=== PATIENT | male | born 1960 | race Caucasian/White ===

== ENCOUNTER → 2021-03-24 19:12 | Emergency (ER) | payer SELFPAY ==
--- NOTE | 2021-03-24 19:20 | ED.GENADULT ---
HPI - General Adult General Chief complaint: Shortness of Breath/Dyspnea Stated complaint: allergic reaction Time Seen by Provider: 03/24/21 19:12 Source: patient and RN notes reviewed Mode of arrival: ambulatory Limitations: no limitations History of Present Illness HPI narrative: 60-year-old male arrives to the [facility] with complaints of my throat is swelling, I am having an allergic reaction patient reports that it started a couple hours ago and states that he took 3 Benadryl but was not getting any better so he came to the [facility]. Patient when placed on the stretcher is tripoding, swelling noted to the soft palate, tonsils, uvula. Patient is tachycardic. Hot potato voice. Currently maintaining own secretions. Onset (ago): hour(s) Review of Systems Review of Systems: All systems reviewed & are unremarkable except as noted in HPI and below Constitutional: Constitutional: Reports no additional constitutional complaints, Denies chills and Denies fever(s) Eyes: Eyes: Reports no additional eye complaints ENT: Reports as per HPI, Reports sore throat, Reports throat swelling and Denies tongue swelling Comments: Throat swelling shut Cardiovascular: Cardiovascular: Reports no additional cardiovascular complaints and Denies chest pain Respiratory: Respiratory: Reports as per HPI, Denies chest congestion, Denies cough, Reports dyspnea and Denies wheezing Gastrointestinal: Gastrointestinal: Reports no additional gastrointestinal complaints Musculoskeletal: Musculoskeletal: Reports no additional musculoskeletal complaints Integumentary/Breasts: Skin/Breast: Reports system reviewed and no additional complaints, except as docu Psychiatric: Psychiatric: Reports no additional psychiatric complaints Allergic/Immunologic: Allergic/Immunologic: Reports no additional allergic/immunologic complaints PMFSH Past Medical History Medical History (Updated 03/24/21 @ 19:28 by Adelina Macias) Hypertension Comments Unable to obtain a complete medical history, patient having trouble talking Exam Const: General: alert, acute distress moderate and respiratory, ill appearing and uncomfortable Nutritional Appearance: well nourished Orientation/consciousness: patient oriented x3 HENMT: Ears: hearing grossly normal bilaterally and external ears normal General nose exam: Normal external nose present Mouth: Yes lip normal, Yes tongue normal, Yes muffled voice and Yes Abnormal oral and palatal mucosa present erythematous and edematous Throat: uvular edema Eyes: Pupils: Equal, round and reactive pupils present Neck: Neck: normal visual inspection Chest: Chest palpation & inspection: normal inspection of the chest Resp: Effort & Inspection: tachypneic Auscultation: crackles bilateral Other: No wheezing or stridor noted Cardio: Rate: tachycardic GI: GI Palp: Yes Soft to palpation and No Tenderness to palpation present (GI) Back/Spine/Pelvis: Back: no CVA tenderness Skin: General skin exam: normal color Neuro: General: patient oriented x3, moves all extremities, no meningeal signs and no focal motor deficits Extrem: General: normal to inspection Psych: Appearance: grossly normal and well kempt Mental Status: mental status grossly normal Affect: Anxious affect present Attitude: cooperative Course Course Emergency Course: Transfer instructions reviewed with patient, as well as provided in writing per nursing staff. The instructions also include specific and strict GO TO THE ER. EMS notified due to concern for airway. All questions have been answered, and the patient deny any further questions with discharge and discharge plan. Some parts of this dictation were generated by voice recognition software and may contain typographical and/or grammatical inaccuracies. Level of Care: [facility] Visit Vital Signs Vital signs: Vital Signs Pulse Rate 122 H 03/24/21 19:21 Respiratory Rate 26 H 03/24/21 19:21 Blood Pres
[2021-03-24 19:21] VITALS: BP 174/102; PULSE 122; RESP 26; O2SAT 100
== END | disposition short-term general hospital (02) ==
PROVIDERS: Emergency Provider Nurse Practitioner
DX: R22.0 Localized swelling, mass and lump, head (principal); I10 Essential (primary) hypertension
CPT/HCPCS: 99205; G0463; J2930

== ENCOUNTER 2021-03-24 19:36 | Inpatient (IN) | payer SELFPAY ==
[2021-03-24] VITALS (8 sets, daily range): BP systolic 106–159; BP diastolic 69–91; PULSE 77–111; RESP 16–22; O2SAT 98–100; BMI 27.0
--- NOTE | ~2021-03-24 | XR_ITS ---
EXAMINATION: XR chest 1V portable EXAM DATE: 03/26/2021 06:14 INDICATION: intubated for angio edema . TECHNIQUE: Portable AP frontal chest x-ray was obtained. Comparison is made to prior examination from 03/25/2021. FINDINGS: Endotracheal tube tip is 2.0 centimeters above the francis. There is a nasogastric tube se en with tip collimated off the study, but below the left hemidiaphragm. Couple of right basilar granulomas. Bibasilar ill-defined opacity, pneumonia or edema. Possible smal l left pleural effusion. There is no pneumothorax suspected. Cardiomediastinal silhouette is ruiz l. There are mild bony degenerative changes. IMPRESSION: 1. Nasogastric tube could be safely advanced 5 cm. 2. Bibasilar pneumonia or edema, mild progression. Reviewed, dictated and finalized at location A. CHEMIST
--- NOTE | ~2021-03-24 | CT_ITS ---
EXAMINATION: CT abdomen pelvis wo con DATE: 03/25/2021 14:11 INDICATION: Lung nodule. TECHNIQUE: Computed tomography (CT) of the abdomen and pelvis was performed without intravenous contr ast. Automated exposure control and iterative reconstruction technique were employed. The dose-length product was 1259.37 mGy-cm. COMPARISON: None. FINDINGS: The visualized portions of the lung bases demonstrate mild emphysema and mild dependent ate lectasis. Calcified right lung nodules and calcified right hilar lymph nodes are consistent with old granulomatous disease. No pleural effusion. The heart size is normal. No pericardial effusion. The na sogastric tube tip is in the stomach. There are cysts in the liver measuring up to 4.9 cm. The gallbl adder, spleen, and adrenal glands are normal. There is a 2.1 cm cyst in the pancreas. There are innum erable cysts in the kidneys measuring up to 4.6 cm on the left. There are masses in the kidneys measu ring soft tissue attenuation measuring up to 2.8 cm on the left. There are no dilated loops of bowel. The appendix is normal. There is fat stranding in small bowel mesentery in left abdomen and in right lower quadrant, likely inflammation or edema. There are no pathologically enlarged lymph nodes. Ther e is no free intraperitoneal fluid. There is severe lumbar spondylosis and mild thoracic spondylosis. There is mild chronic height loss of multiple thoracic vertebral bodies. IMPRESSION: 1. Polycystic kidney disease. 2. Masses in the kidneys measuring up to 2.8 cm on the left, most likely hemorrhagic cysts. Neoplasm cannot be excluded. Consider abdomen CT without and with contrast. 3. Fat stranding in small bowel mesentery in left abdomen and in right lower quadrant, likely inflamm ation or edema. Reviewed, dictated and finalized at location A. LE ARCHITECT IMPRESSION: 1. Polycystic kidney disease. 2. Masses in the kidneys measuring up to 2.8 cm on the left, most likely hemorr hagic cysts. Neoplasm cannot be excluded. Consider abdomen CT without and with contrast. 3. Fat stranding in small bowel mesentery in left abdomen and in right lower qu adrant, likely inflammation or edema.
--- NOTE | ~2021-03-24 | XR_ITS ---
XR abdomen NG/feed tube insert DATE: 03/24/2021 20:31 INDICATION: NG tube placement TECHNIQUE: Portable AP chest examination on 03/24/20215 hours COMPARISON: None FINDINGS: Nasogastric tube is present in the gastric fundus, the proximal side-port just distal to th e diaphragmatic hiatus. Nonspecific gaseous distention of colon and small bowel. IMPRESSION: NG tube in gastric fundus Reviewed, dictated and finalized at Location A. Reviewed, dictated and finalized at location A. RTISING SALES AGENT IMPRESSION: NG tube in gastric fundus
--- NOTE | ~2021-03-24 | XR_ITS ---
EXAMINATION: XR chest 1V portable DATE: 03/28/2021 06:05 INDICATION: Respiratory failure. Angioedema. TECHNIQUE: A single frontal view of the chest was obtained. COMPARISON: Chest single view 03/27/2021, CT abdomen and pelvis 03/25/2021 FINDINGS: There is mild atelectasis in left lower lung zone. Calcified right lung nodules and calcifi ed right hilar lymph nodes are consistent with old granulomatous disease. No pleural effusion or pneu mothorax. The heart size is normal. There are old healed left rib fractures. The nasogastric tube tip is beyond the inferior margin of the radiograph, but at least to the stomach. IMPRESSION: 1. Mild atelectasis in left lower lung zone. Reviewed, dictated and finalized at location A. MOTIVE SERVICE CASHIER
--- NOTE | ~2021-03-24 | XR_ITS ---
EXAMINATION: XR chest 1V portable DATE: 03/29/2021 06:14 INDICATION: Respiratory failure. Angioedema. TECHNIQUE: A single frontal view of the chest was obtained. COMPARISON: Chest single view 03/28/2021, CT abdomen and pelvis 03/25/2021 FINDINGS: Calcified right lung nodules and calcified right hilar lymph nodes are consistent with old granulomatous disease. No pleural effusion or pneumothorax. The heart size is normal. IMPRESSION: 1. No acute cardiopulmonary disease. Reviewed, dictated and finalized at location A. TH INFORMATION SYSTEMS TECHNICIAN
--- NOTE | ~2021-03-24 | CT_ITS ---
EXAMINATION:CT diagnostic chest wo con DATE: 03/25/2021 14:12 INDICATION: Lung nodule. Abnormal chest radiograph. TECHNIQUE: Computed tomography (CT) of the chest was performed without intravenous contrast. Automate d exposure control and iterative reconstruction technique were employed. The dose-length product (DLP ) was 583.59 mGy-cm. COMPARISON: Chest single view 03/25/2021 FINDINGS: There is mild emphysema. There is mild dependent atelectasis bilaterally. Calcified right l aydin nodules and calcified right hilar and mediastinal lymph nodes are consistent with old granulomato us disease. The endotracheal tube tip is in expected position above the francis. The heart size is nor mal. There are coronary artery calcifications. No pericardial effusion. The nasogastric tube tip is i n the stomach. There are cysts in the liver and kidneys, consistent with polycystic kidney disease. T here is moderate cervical spondylosis and mild thoracic spondylosis. IMPRESSION: 1. No evidence of malignancy. 2. Mild emphysema. 3. Polycystic kidney disease. Reviewed, dictated and finalized at location A. S UTILITY REPRESENTATIVE
--- NOTE | ~2021-03-24 | XR_ITS ---
EXAMINATION: XR chest 1V portable EXAM DATE: 03/25/2021 07:24 INDICATION: intubated for angio edema TECHNIQUE: Portable AP frontal chest x-ray was obtained. Comparison is made to prior examination from 03/24/2021. FINDINGS: Endotracheal tube tip is 2.5 centimeters above the francis. Feeding tube tip is in the stom ach, side-port is at the gastroesophageal junction; this could be safely advanced 5 cm. Couple of right basilar granulomas. Left basilar linear atelectasis or possibly pneumonia. Possible small left pleural effusion. There is no pneumothorax suspected. Cardiomediastinal silhouette is n ormal. There are mild bony degenerative changes. Better inspiration on this exam than prior study. Previously seen right upper lobe nodular density no t specifically appreciated on this x-ray. IMPRESSION: 1. Nasogastric tube could be safely advanced 5 cm. 2. Left basilar subsegmental atelectasis or possibly pneumonia. Reviewed, dictated and finalized at location A. UCT TESTER
--- NOTE | ~2021-03-24 | XR_ITS ---
XR chest ET placement DATE: 03/24/2021 20:31 INDICATION: Post-intubation TECHNIQUE: Portable AP chest on 03/24/20213 hours COMPARISON: None FINDINGS: ET tube is 1 cm above francis; ideal range is minimal 2-5 cm. An NG tube is noted in the gastric fundus, the proximal side-port just beyond the diaphragmatic hiatu s. No central lines. Heart size is likely within normal range considering magnification associated with AP projection. The re is mild bibasilar infiltrate or atelectasis, left greater than right. There is suggestion of an approximately 2.5 cm soft tissue mass density of the medial right upper lob e suspicious for lung cancer. No prior radiographs are available for comparison. CT thorax examinatio n is recommended. IMPRESSION: Right upper lobe approximately 2.5 cm lung mass is suggested. CT thorax is recommended Bibasilar infiltrate and/atelectasis, left greater than right ET tube 1 cm above francis; ideal range is 2-5 cm NG tube in gastric fundus Reviewed, dictated and finalized at Location [facility]. Reviewed, dictated and finalized at location A. UELS PRODUCT MANAGER IMPRESSION: Right upper lobe approximately 2.5 cm lung mass is suggested. CT th orax is recommended Bibasilar infiltrate and/atelectasis, left greater than right ET tube 1 cm above francis; ideal range is 2-5 cm NG tube in gastric fundus
--- NOTE | ~2021-03-24 | XR_ITS ---
EXAMINATION: XR chest 1V portable EXAM DATE: 03/27/2021 05:52 INDICATION: Respiratory failure, angioedema TECHNIQUE: Portable AP frontal chest x-ray was obtained. Compared to study from 03/26/2021. FINDINGS: Endotracheal tube tip is 2 centimeters above the francis. There is a nasogastric tube seen with tip collimated off the study, but below the left hemidiaphragm. Couple of right basilar granulomas. Bibasilar ill-defined opacity, pneumonia or edema. Possible smal l left pleural effusion. There is no pneumothorax suspected. Cardiomediastinal silhouette is ruiz l. There are mild bony degenerative changes. IMPRESSION: 1. Tubes in position. 2. Bibasilar pneumonia or edema, mild progression. Reviewed, dictated and finalized at location A. L CLERK
[2021-03-24] MEDS: PROPOFOL IV EMULSION 100 ML 2.88 MG IV CONT (20:15)
--- NOTE | 2021-03-24 20:55 | PC.NURSE ---
0.5 mg epi given [address] marks attempting intubation 1942 4 versed and 100 succ given at 1943 another 4 versed given at 1949 another 100 succ given 1953 7.5 tube 25 at the teeth 1956 20 mg propofol bolus given [address] marks NG tube placed 55 at the lips 2019
[2021-03-24] MEDS: SODIUM CHLORIDE 0.9% IV 1,000 ML 125 ML IV CONT (21:04)
--- NOTE | 2021-03-24 21:11 | ED.GENADULT ---
HPI - General Adult General Chief complaint: Allergic Reaction Stated complaint: ? poss allergic rxn Time Seen by Provider: 03/24/21 20:04 Source: patient, EMS and RN notes reviewed Mode of arrival: EMS Limitations: no limitations History of Present Illness HPI narrative: 60 years old white male brought to the emergency room by ambulance from urgent care because of difficulty swallowing and talking started 2 hours prior to arrival to the emergency room. Patient on lisinopril for hypertension. Patient denies having similar symptoms. Also denies any fever, chills, nausea, vomiting, diarrhea, constipation, or chest pain Review of Systems Review of Systems: CONSTITUTIONAL: Denies fever, chills, or sweats. EYES: Denies visual changes, redness, or discharge. ENT: Denies rhinorrhea, congestion, sore throat, or otalgia. CARDIOVASCULAR: Denies chest pain, palpitations, or edema. RESPIRATORY: Unable to swallow or breathe GASTROINTESTINAL: Denies abdominal pain, nausea, vomiting, or diarrhea. GENITOURINARY: Denies dysuria or hematuria. SKIN: Denies rash or itching. MUSCULOSKELETAL: Denies back pain, joint pain, or myalgia. NEUROLOGIC: Denies headache, numbness, or weakness. PSYCHIATRIC: Denies anxiety or depression. [facility] Past Medical History Medical History (Updated 03/24/21 @ 21:36 by Gwyn Ennis MD) Hypertension Exam Narrative: General appearance: Well-developed, well-nourished Skin: Normal color Head: Normocephalic, nontraumatic Eyes: Clear conjunctiva ENT: Extensive edematous changes of the oropharyngeal area, including the soft palate and the uvula which sitting at the back of the tongue Neck: Supple, nontender Chest and respiratory: Airway patent, no respiratory distress, no accessory muscle use Heart: Regular rate/rhythm Abdomen: Soft, nontender, no organomegaly, quiet bowel sounds Vascular: Normal peripheral pulses, normal capillary refill. Musculoskeletal: Normal range of motion, nontender back Neurologic: Alert and oriented ?3, HHA is normal as tested, no gross motor deficit Course Course Emergency Course: Stable, improving Consultations Consultation #1: DR ALVAREZ Date: 03/24/21 Time: 21:26 Vital Signs Vital signs: Vital Signs Pulse Rate 110 H 03/24/21 19:35 Respiratory Rate 22 H 03/24/21 19:35 Blood Pressure 137/84 03/24/21 19:35 Pulse Oximetry 99 03/24/21 19:35 Pulse Rate 104 H 03/24/21 20:42 Respiratory Rate 22 H 03/24/21 20:42 Blood Pressure 106/69 03/24/21 20:42 Pulse Oximetry 98 03/24/21 20:42 Procedures Intubation Intubation #1: Intubation Date: 03/24/21 Intubation Time: 21:27 Time out performed: Yes sedative: Versed Mg Given: 4 paralytic: Succinylcholine Mg Given: 100 Laryngoscope: fiber optic video scope Tube Size (cm): 7.5 Method of Intubation: orotracheal Number of Attempts: 3 Additional Comments: Unsuccessful intubation, because of the extensive oropharyngeal edema. Anesthesiologist came to the emergency room ,AND was able to manage to intubate the patient. Medical Decision Making MDM Narrative Medical decision making narrative: Angioedema orotracheal intubation CRICKET inhibitor Differential Diagnosis Differential Diagnosis: Angioedema, CRICKET inhibitor Vital Signs Vital Signs: Vital Signs Pulse Rate 110 H 03/24/21 19:35 Respiratory Rate 22 H 03/24/21 19:35 Blood Pressure 137/84 03/24/21 19:35 Pulse Oximetry 99 03/24/21 19:35 Pulse Rate 104 H 03/24/21 20:42 Respiratory Rate 22 H 03/24/21 20:42 Blood Pressure 106/69 03/24/21 20:42 Pulse Oximetry 98 03/24/21 20:42 Lab Data Result
[2021-03-24 21:22] LABS: Basophils Absolute Auto 0.1 K/mm3 (0.0-0.1); Basophils Percent Auto 0.6 % (0.2-1.2); Eosinophils Absolute Auto 0.1 K/mm3 (0-0.3); Eosinophils Percent Auto 1.1 % (0-4.4); Hematocrit 42.4 % (42.0-52.0); Hemoglobin 13.6 g/dL (14.0-18.0); Immature Granulocyte Absolute 0.03 K/mm3 (0.00-0.031); Immature Granulocyte Percent A 0.4 % (0-0.5); Lymphocytes Absolute Auto 0.49 K/mm3 (0.9-3.2); Lymphocytes Percent Auto 6.1 % (18.3-44.2); Mean Corpuscular HGB Conc 32.1 g/dl (32-36); Mean Corpuscular Hemoglobin 34.1 pg (26-34); Mean Corpuscular Volume 106.3 fl (80-100); Mean Platelet Volume 9.6 fl (7.4-10.4); Monocytes Absolute Auto 0.2 K/mm3 (0.1-0.6); Neutrophils Absolute Auto 7.1 K/mm3 (1.3-6.7); Neutrophils Percent Auto 88.8 % (45.5-73.1); Platelet Count Result 149 k/mm3 (150-375); Red Blood Count 3.99 M/mm3 (4.6-6.20); Red Cell Distribution Width 13.9 % (11.5-14.5)
[2021-03-24 21:38] LABS: INR 1.1; Partial Thromboplastin Time 26.9 SECONDS (22.3-36.8); Prothrombin Time 13.7 Seconds (11.1-14.7)
[2021-03-24 21:39] LABS: Alanine Aminotransferase 46 U/L (4-50); Albumin Level 4.3 g/dL (3.5-5.1); Alkaline Phosphatase 100 U/L (38-126); Anion Gap 13 mmol/L (8-16); Aspartate Amino Transferase 78 U/L (17-59); Bilirubin,Total 0.8 mg/dL (0.2-1.3); Blood Urea Nitrogen 28 mg/dL (9-20); Calcium 8.2 mg/dL (8.4-10.2); Carbon Dioxide 20 mmol/L (22-30); Chloride 106 mmol/L (98-107); Estimated CRCL calculation 45 ml/min; Estimated Glomerular Filt Rate 41; Glucose 224 mg/dL (65-110); Potassium 4.6 mmol/L (3.4-5.0); Sodium 139 mmol/L (137-145)
[2021-03-24] MEDS: PROPOFOL IV EMULSION 100 ML 28.8 MG IV CONT (23:40)
--- NOTE | 2021-03-24 23:48 | ADMGEN ---
This patient, Anton Navarro, was admitted to Intensive Care Unit-6. Patient/family oriented to hospital policies and general routines including ID bracelet, bed and alarms, visiting hours, pain management, procedures, bathroom and other care routines, personal items, smoking policy, room service/diet, and visiting hours. Information on how to activate the Rapid Response Team has been discussed. Patient/Family are encouraged to report perceived risks to care and to ask questions if they do not understand what they are told or what they should do.
[2021-03-25] VITALS (26 sets, daily range): BP systolic 124–149; BP diastolic 79–95; PULSE 69–88; RESP 14–28; TEMP 35.6–37; O2SAT 94–100; BMI 27.0
--- NOTE | 2021-03-25 00:15 | PM.IMHP ---
H&P: HPI History of Present Illness Date/Time: 03/25/21 00:15 Chief Complaint: Shortness of breath Narrative: 60 years old white male who [facility] with throat swelling which started couple of hours ago and he took 3 Benadryl at home which did not improve and went to the [facility]. Patient was tripoding on this stretcher and swelling noted in the soft palate tonsils and he will noted to be tachycardic with hot potato voice. Received a dose of Solu-Medrol and also epinephrine. He was immediately referred to the ER. While in the ER he had difficulty swallowing and talking and he was emergently intubated. He had been given Solu Medrol in the ER and is admitted to the ICU for further care. No further history could be elucidated at this point due to his mental status. He is currently sedated on propofol. Review of Systems Review of Systems: ROS unobtainable: Yes unobtainable due to endotracheal tube, unobtainable due to medical condition and unobtainable due to mental status PMFSH Past Medical History Medical History (Updated 03/25/21 @ 00:23 by Carlos Haddad MD) Hypertension Social History Social History Smoking status: Former smoker Alcohol intake: current Substance use: never Gender identity (if verbalized by the patient): Male Sexual Orientation (if Verbalized by the Patient): Straight or Heterosexual Spiritual care concerns: No Meds Home Medications and Allergies Home Medications Medication Instructions Recorded Confirmed Type lisinopril 10 mg PO DAILY 03/24/21 03/24/21 History Allergies Allergy/AdvReac Type Severity Reaction Status Date / Time lisinopril Allergy Swelling Verified 03/25/21 00:26 of Lip/Tongue/Throat Vital Signs Vital Signs - 24 hr 03/24/21 19:35 03/24/21 20:15 03/24/21 20:24 Pulse Rate 110 H 105 H 111 H Respiratory Rate 22 H 16 Blood Pressure 137/84 Pulse Oximetry 99 99 03/24/21 20:40 03/24/21 20:42 03/24/21 22:41 Pulse Rate 104 H 92 Respiratory Rate 22 H 17 Blood Pressure 106/69 159/91 H Pulse Oximetry 98 98 100 03/24/21 23:28 03/24/21 23:40 Pulse Rate 79 77 Respiratory Rate Blood Pressure Pulse Oximetry 100 Exam Narrative: General appearance: Well-developed, well-nourished Skin: Normal color no rash Head: Normocephalic, nontraumatic Eyes: Clear conjunctiva Throat: ET tube in place Neck: Supple, nontender Chest and respiratory: Bilateral equal air entry, no respiratory distress, no accessory muscle use on mechanical ventilation Heart: Regular rate/rhythm no murmur rubs or gallops Abdomen: Soft, nontender, no organomegaly, quiet bowel sounds Vascular: Normal peripheral pulses, normal capillary refill. Musculoskeletal: Normal range of motion, nontender back Neurologic: Sedated on vent H&P: Results Labs Labs: Short CBC 03/24/21 Range/Units 20:53 WBC 8.0 (4.5-10.0) K/mm3 Hgb 13.6 L (14.0-18.0) g/dL Hct 42.4 (42.0-52.0) % Plt Count 149 L (150-375) k/mm3 BMP 03/24/21 20:53 Sodium 139 Potassium 4.6 Chloride 106 Carbon Dioxide 20 L BUN 28 H Creatinine 1.70 H Glucose 224 H Calcium 8.2 L Liver Function 03/24/21 Range/Units 20:53 Total Bilirubin 0.8 (0.2-1.3) mg/dL AST 78 H (17-59) U/L ALT 46 (4-50) U/L Alkaline Phosphatase 100 (38-126) U/L Albumin 4.3 (3.5-5.1) g/dL Assessment and Plan Assessment and plan (1) Angioedema: Qualifiers: Encounter type: initial encounter Qualified Code(s): T78.3XXA - Angioneurotic edema, initial encounter Code(s): T78.3XXA - Angio
[2021-03-25 00:48] LABS: Alveolar/Arterial O2 Gradient 195.5 mmHg; Base Excess ABG -6.9 mEq/l (+/-2.0); Carboxyhemoglobin 0.2 % THb (0-2.0); Fractional Inspired Oxygen 70 %; HCO3 ABG 17.4 mEq/l (22.0-26.0); Methemoglobin ABG 0.4 %THb (0-1.5); Oxygen Content ABG 22.1 %vol (16.0-22.0); Oxygen Saturation ABG 99.6 % (95.0-100.0); Oxyhemoglobin 98.5 % THb (90.0-100.0); PCO2 ABG 32.1 mmHg (35.0-45.0); PO2 ABG 269.1 mmHg (80.0-100.0); PO2 FiO2 Ratio Arterial Blood 3.84 %; Reduced Hemoglobin 0.9 %THb (0-5.0); Total Hemoglobin 15.5 g/dL (12.0-18.0); pH ABG 7.352 (7.350-7.450)
[2021-03-25 00:49] LABS: Device VENTILATOR; Modified Allen's Test Pass; Site Drawn LEFT RADIAL
[2021-03-25 00:50] LABS: Arterial Blood Gas PEEP 5 cmH2O; Arterial Blood Gas Tidal Volume 420 ml; Arterial Blood Gas Vent Mode CMV; Arterial Blood Gas Ventilator rate 15 /MIN
[2021-03-25] MEDS: hydrALAZINE HCL 20 MG/ML VIAL IV PUSH ×2 (01:30→01:39)
[2021-03-25] MEDS: diphenhydrAMINE HCl INJ 50 MG/ML VIAL IV PUSH ×4 (01:38→17:19)
[2021-03-25] MEDS: methylPREDNISolone SOD SUCC 125 MG VIAL 60 MG IV PUSH ×4 (01:38→17:22)
[2021-03-25 01:43] LABS: Alanine Aminotransferase 52 U/L (4-50); Albumin Level 4.6 g/dL (3.5-5.1); Alkaline Phosphatase 97 U/L (38-126); Anion Gap 12 mmol/L (8-16); Aspartate Amino Transferase 80 U/L (17-59); Blood Urea Nitrogen 30 mg/dL (9-20); CRP < 0.5 mg/dL (<1.0); Calcium 8.5 mg/dL (8.4-10.2); Carbon Dioxide 21 mmol/L (22-30); Chloride 106 mmol/L (98-107); Estimated CRCL calculation 50 ml/min; Estimated Glomerular Filt Rate 44; Glucose 149 mg/dL (65-110); Potassium 5.6 mmol/L (3.4-5.0); Sodium 139 mmol/L (137-145)
[2021-03-25 02:10] LABS: Basophils Percent Auto 0.2 % (0.2-1.2); Eosinophils Percent Auto 0.2 % (0-4.4); Hematocrit 44.7 % (42.0-52.0); Hemoglobin 14.6 g/dL (14.0-18.0); Immature Granulocyte Absolute 0.02 K/mm3 (0.00-0.031); Immature Granulocyte Percent A 0.4 % (0-0.5); Lymphocytes Absolute Auto 0.39 K/mm3 (0.9-3.2); Lymphocytes Percent Auto 7.3 % (18.3-44.2); Mean Corpuscular HGB Conc 32.7 g/dl (32-36); Mean Corpuscular Hemoglobin 34.6 pg (26-34); Mean Corpuscular Volume 105.9 fl (80-100); Mean Platelet Volume 9.6 fl (7.4-10.4); Monocytes Absolute Auto 0.1 K/mm3 (0.1-0.6); Monocytes Percent Auto 2.4 % (2.6-8.5); Neutrophils Absolute Auto 4.8 K/mm3 (1.3-6.7); Neutrophils Percent Auto 89.5 % (45.5-73.1); Platelet Count Result 111 k/mm3 (150-375); Red Blood Count 4.22 M/mm3 (4.6-6.20); White Blood Count 5.4 K/mm3 (4.5-10.0)
[2021-03-25] MEDS: PROPOFOL IV EMULSION 100 ML 23.04 MG IV CONT ×5 (02:10→21:13)
[2021-03-25] MEDS: MIDAZOLAM 100MG/NS 100ML(*CRX) 100 MG/100 ML BAG 6 MG IV CONT ×2 (02:25→15:13)
[2021-03-25 02:59] LABS: Erythrocyte Sedimentation Rate 21 mm/hr (0-20)
[2021-03-25] MEDS: SODIUM CHLORIDE 0.9% IV 1,000 ML 125 ML IV CONT (06:19)
[2021-03-25] MEDS: LACTATED RINGERS 1,000 ML 999 ML IV CONT (08:44)
[2021-03-25] MEDS: FAMOTIDINE 20 MG/2 ML VIAL IV PUSH ×2 (08:49→21:16)
[2021-03-25] MEDS: MINERAL OIL/WHITE PETROLATUM OINTMENT 1 APPLIC EACH EYE ×2 (08:49→21:16)
--- NOTE | 2021-03-25 09:34 | WPDCNINT ---
Assessment and Plan Assessment and plan (1) Acute respiratory failure: Code(s): J96.00 - Acute respiratory failure, unspecified whether with hypoxia or hypercapnia Status: Acute Assessment and Plan: Acute respiratory failure likely related to angioedema and swelling of the tongue, soft palate, tonsils. Patient also had hoarseness in voice and difficulty swallowing -continue CMV mode of ventilation, peep of 5, 25% FiO2 -chest x-ray and ABGs reviewed -continue sedation with Versed and propofol, maintain RASS of 0 to -2 -patient was a difficult intubation per ER report (2) Angioedema: Qualifiers: Encounter type: initial encounter Qualified Code(s): T78.3XXA - Angioneurotic edema, initial encounter Code(s): T78.3XXA - Angioneurotic edema, initial encounter Status: Acute Assessment and Plan: Angioedema likely related to lisinopril has been added to the allergies -continue Solu-Medrol -continue famotidine and Benadryl -will obtain CT scan of neck and soft tissues in a.m. (3) DVT prophylaxis: Code(s): Z29.9 - Encounter for prophylactic measures, unspecified Status: Acute Assessment and Plan: Lovenox SQ Additional Plan Nutrition: Will start tube feeds today Stress ulcer prophylaxis: Famotidine Code status: Full code Critical care time spent: 42 minutes This dictation may have been done utilizing a voice recognition system. Attempts have been made to correct errors. However, there may be uncorrected grammatical, spelling, and recognition errors present. Due to a high probability of clinically significant, life threatening deterioration, the patient required my highest level of preparedness to intervene emergently and I personally spent this critical care time directly and personally managing the patient. This critical care time included obtaining a history; examining the patient; pulse oximetry; ordering and review of studies; arranging urgent treatment with development of a management plan; evaluation of patient's response to treatment; frequent reassessment; and discussions with other providers. It was exclusive of separately billable procedures and treating other patients and teaching time. Please see Assessment and Plan section and the rest of the note for further information on patient assessment and treatment [employer] Consult Note Consult date: 03/25/21 Time Seen: 07:01 Reason for consult: Acute respiratory failure, injury edema HPI: Anton Navarro is a 60 year old male with past medical of hypertension on lisinopril presented the ED from Urgent Care on 03/24/2021 with complains of difficulty swallowing, swelling throat, soft palate and tonsils along with hoarseness of voice. Patient received Solu-Medrol, epinephrine. He was intubated in the ER for airway protection by Anesthesia. Patient was placed on mechanical ventilation and transferred to the ICU for further management. In the ICU was started on Benadryl and Pepcid. Remains on methylprednisolone. Patient is currently on CMV mode of ventilation, 25% FiO2. Patient is hemodynamically stable, adequate urine output. Patient is sedated with propofol and Versed, does not open his eyes or follow simple commands Review of Systems Review of Systems: ROS unobtainable: Yes unobtainable due to endotracheal tube and unobtainable due to medical condition PMFSH Past Medical History Medical History (Updated 03/25/21 @ 09:40 by Jonathon Miller MD) Hypertension Social History Social History Smoking status: Former smoker Alcohol intake: current Substance use: never Gender identity (if verbalized by the patient): Male Sexual Orientation (if Verbalized by the Patient): Straight or Heterosexual Spiritual care concerns: No Meds Home Medications and Allergies Home Medications Medication Instructions Recorded Confirmed Type lisinopril 10 mg PO DA
[2021-03-25] MEDS: ENOXAPARIN 40 MG/0.4 ML SYRINGE SUB-Q (10:37)
[2021-03-25 12:09] LABS: Glucose Point of Care 143 mg/dl (65-105)
[2021-03-25 18:08] LABS: Glucose Point of Care 137 mg/dl (65-105)
[2021-03-25] MEDS: SODIUM CHLORIDE 0.9% IV 1,000 ML 75 ML IV CONT (21:15)
[2021-03-25 23:48] LABS: Glucose Point of Care 162 mg/dl (65-105)
[2021-03-26] VITALS (25 sets, daily range): BP systolic 105–170; BP diastolic 33–101; PULSE 67–95; RESP 15–38; TEMP 36.6–37.3; O2SAT 90–97
[2021-03-26] MEDS: methylPREDNISolone SOD SUCC 125 MG VIAL 60 MG IV PUSH ×5 (00:05→23:55)
[2021-03-26] MEDS: diphenhydrAMINE HCl INJ 50 MG/ML VIAL IV PUSH ×5 (00:05→23:54)
[2021-03-26] MEDS: PROPOFOL IV EMULSION 100 ML 23.04 MG IV CONT ×3 (01:17→10:08)
[2021-03-26 04:35] LABS: Alveolar/Arterial O2 Gradient 79.2 mmHg; Base Excess ABG -2.7 mEq/l (+/-2.0); Carboxyhemoglobin 0.3 % THb (0-2.0); Fractional Inspired Oxygen 28 %; Methemoglobin ABG 0.3 %THb (0-1.5); Oxygen Content ABG 18.2 %vol (16.0-22.0); Oxygen Saturation ABG 94.9 % (95.0-100.0); Oxyhemoglobin 93.8 % THb (90.0-100.0); PCO2 ABG 38.2 mmHg (35.0-45.0); PO2 ABG 75.4 mmHg (80.0-100.0); PO2 FiO2 Ratio Arterial Blood 2.69 %; Reduced Hemoglobin 5.6 %THb (0-5.0); Total Hemoglobin 13.8 g/dL (12.0-18.0); pH ABG 7.379 (7.350-7.450)
[2021-03-26 04:37] LABS: Arterial Blood Gas PEEP 5 cmH2O; Arterial Blood Gas Tidal Volume 420 ml; Arterial Blood Gas Vent Mode CMV; Arterial Blood Gas Ventilator rate 15 /MIN; Device VENTILATOR; Modified Allen's Test Pass; Site Drawn LEFT RADIAL
[2021-03-26 05:01] LABS: Hematocrit 39.1 % (42.0-52.0); Immature Granulocyte Absolute 0.02 K/mm3 (0.00-0.031); Immature Granulocyte Percent A 0.3 % (0-0.5); Lymphocytes Absolute Auto 0.27 K/mm3 (0.9-3.2); Lymphocytes Percent Auto 4.5 % (18.3-44.2); Mean Corpuscular HGB Conc 33.2 g/dl (32-36); Mean Corpuscular Hemoglobin 34.9 pg (26-34); Mean Corpuscular Volume 104.8 fl (80-100); Mean Platelet Volume 9.8 fl (7.4-10.4); Monocytes Absolute Auto 0.2 K/mm3 (0.1-0.6); Monocytes Percent Auto 3.8 % (2.6-8.5); Neutrophils Absolute Auto 5.5 K/mm3 (1.3-6.7); Neutrophils Percent Auto 91.4 % (45.5-73.1); Platelet Count Result 120 k/mm3 (150-375); Red Blood Count 3.73 M/mm3 (4.6-6.20); Red Cell Distribution Width 13.6 % (11.5-14.5)
[2021-03-26 05:12] LABS: Alanine Aminotransferase 32 U/L (4-50); Albumin Level 3.4 g/dL (3.5-5.1); Alkaline Phosphatase 72 U/L (38-126); Anion Gap 9 mmol/L (8-16); Aspartate Amino Transferase 38 U/L (17-59); Bilirubin,Total 0.3 mg/dL (0.2-1.3); Blood Urea Nitrogen 32 mg/dL (9-20); Calcium 7.9 mg/dL (8.4-10.2); Carbon Dioxide 21 mmol/L (22-30); Chloride 108 mmol/L (98-107); Estimated CRCL calculation 56 ml/min; Estimated Glomerular Filt Rate 52; Glucose 192 mg/dL (65-110); Phosphorus 4.2 mg/dL (2.5-4.5); Potassium 4.4 mmol/L (3.4-5.0); Sodium 138 mmol/L (137-145)
[2021-03-26] MEDS: MIDAZOLAM 100MG/NS 100ML(*CRX) 100 MG/100 ML BAG 6 MG IV CONT (07:52)
[2021-03-26] MEDS: MINERAL OIL/WHITE PETROLATUM OINTMENT 1 APPLIC EACH EYE ×2 (07:53→20:25)
[2021-03-26] MEDS: ENOXAPARIN 40 MG/0.4 ML SYRINGE SUB-Q (07:53)
[2021-03-26] MEDS: FAMOTIDINE 20 MG/2 ML VIAL IV PUSH ×2 (07:53→20:21)
--- NOTE | 2021-03-26 11:21 | PCFNICU ---
ICU Rounding Note: Pt current nutrition is Vital AF 1.2 at 50 ml/hr over 22 hours. Last recorded weight is 98.7 kg, up from 93 kg on admit. Bowel Motility: No BM reported. Labs Reviewed:GFR 52, BUN 32, Cr 1.4,Glu 192,Alb 3.4 Meds Noted:Versed, Benadryl, Propofol 40 nytc=838 kcals, Pepcid,Lovenox, Solu-Medrol. Skin: WNL Additional Notes: Patient remains on mechanical vent and tube feedings of Vital AF 1.2 at 50 ml/hr over 22hours. Propofol providing an additional 608 kcals. Free water flush 30 ml q 4 hours. Agree with diet orders. Following daily in ICU rounds. Will monitor every Tuesday and Tuesday.
[2021-03-26 12:00] LABS: Glucose Point of Care 178 mg/dl (65-105)
[2021-03-26] MEDS: FENTANYL 2,500MCG/NS250ML(*CRX 2,500 MCG/250 ML BAG IV CONT (12:32)
--- NOTE | 2021-03-26 12:34 | WPDINTPN ---
Progress Note: A&P Assessment and Plan (1) Acute respiratory failure: Code(s): J96.00 - Acute respiratory failure, unspecified whether with hypoxia or hypercapnia Status: Acute Assessment and Plan: Acute respiratory failure likely related to angioedema and swelling of the tongue, soft palate, tonsils. Patient also had hoarseness in voice and difficulty swallowing -continue CMV mode of ventilation, peep of 5, 25% FiO2 -chest x-ray and ABGs reviewed -continue sedation with Versed and propofol, maintain RASS of 0 to -2 -patient was a difficult intubation per ER report -patient has a good cuff leak -will obtain CT of the neck and soft tissues in a.m. to evaluate for pharyngeal and hypo pharyngeal swelling (2) Angioedema: Qualifiers: Encounter type: initial encounter Qualified Code(s): T78.3XXA - Angioneurotic edema, initial encounter Code(s): T78.3XXA - Angioneurotic edema, initial encounter Status: Acute Assessment and Plan: Angioedema likely related to lisinopril has been added to the allergies -continue Solu-Medrol -continue famotidine and Benadryl (3) DVT prophylaxis: Code(s): Z29.9 - Encounter for prophylactic measures, unspecified Status: Acute Assessment and Plan: Lovenox SQ Additional Plan Nutrition: Tolerating tube feeds Stress ulcer prophylaxis: Famotidine Code status: Full code Critical care time spent: 42 minutes This dictation may have been done utilizing a voice recognition system. Attempts have been made to correct errors. However, there may be uncorrected grammatical, spelling, and recognition errors present. Due to a high probability of clinically significant, life threatening deterioration, the patient required my highest level of preparedness to intervene emergently and I personally spent this critical care time directly and personally managing the patient. This critical care time included obtaining a history; examining the patient; pulse oximetry; ordering and review of studies; arranging urgent treatment with development of a management plan; evaluation of patient's response to treatment; frequent reassessment; and discussions with other providers. It was exclusive of separately billable procedures and treating other patients and teaching time. Please see Assessment and Plan section and the rest of the note for further information on patient assessment and treatment Subjective Date/time seen: 03/26/21 12:34 Interval history: Reason for consult: Acute respiratory failure, angioedema likely related to lisinopril use 03/26/2021: Patient seen and examined the ICU, remains intubated on mechanical ventilation, on 28% FiO2 and 5 of PEEP. Patient does have a good cuff leak. Lower lip and tongue remains swollen. Adequate urine output, Creatinine improving. Hemodynamically stable. Patient is sedated with propofol, fentanyl, Versed infusion. Patient is tolerating tube feeds Review of Systems Review of Systems: ROS unobtainable: Yes unobtainable due to endotracheal tube and unobtainable due to medical condition Exam Narrative: General: Intubated, sedated, no acute distress HEENT: ETT in place, tongue looks to be swollen, lips slightly swollen pupils are equal and reactive, sclerae is clear Neck: Supple no lymphadenopathy Respiratory: Clear to auscultation bilaterally, patient does have a good cuff leak Cardiac: S1-S2 normal, regular rate and rhythm Abdomen: Soft, nontender, nondistended, normoactive bowel sounds Extremities: Chronic venous stasis changes on bilateral lower extremities Neuro: Patient is intubated, sedated does not open his eyes or follow simple commands Skin: Dry and intact Psych: Unable to assess at this time Objective Data Vital Signs Vital Signs: Vital Signs - 24 hr 03/25/21 14:00 03/25/21 14:26 03/25/21 14:33 Temperature 96.9 F L Pulse Rate 77 73 72 Respiratory Rate Blood Pressure 148/95 H Pulse O
[2021-03-26] MEDS: PROPOFOL IV EMULSION 100 ML 25.92 MG IV CONT (13:37)
[2021-03-26] MEDS: PROPOFOL IV EMULSION 100 ML 20.16 MG IV CONT (17:14)
[2021-03-26 17:26] LABS: Glucose Point of Care 171 mg/dl (65-105)
[2021-03-26] MEDS: PROPOFOL IV EMULSION 100 ML 14.4 MG IV CONT (22:34)
[2021-03-26] MEDS: MIDAZOLAM 100MG/NS 100ML(*CRX) 100 MG/100 ML BAG IV CONT (23:52)
[2021-03-27] VITALS (50 sets, daily range): BP systolic 114–177; BP diastolic 74–106; PULSE 63–108; RESP 12–22; TEMP 36.6–37.2; O2SAT 90–98
[2021-03-27 00:03] LABS: Glucose Point of Care 197 mg/dl (65-105)
[2021-03-27 04:39] LABS: Alveolar/Arterial O2 Gradient 137.2 mmHg; Carboxyhemoglobin 0.3 % THb (0-2.0); Fractional Inspired Oxygen 40 %; HCO3 ABG 24.2 mEq/l (22.0-26.0); Methemoglobin ABG 0.3 %THb (0-1.5); Oxygen Content ABG 21.4 %vol (16.0-22.0); Oxygen Saturation ABG 94.4 % (95.0-100.0); Oxyhemoglobin 94.3 % THb (90.0-100.0); PCO2 ABG 56.3 mmHg (35.0-45.0); PO2 ABG 83.3 mmHg (80.0-100.0); PO2 FiO2 Ratio Arterial Blood 2.08 %; Reduced Hemoglobin 5.1 %THb (0-5.0); Total Hemoglobin 16.1 g/dL (12.0-18.0)
[2021-03-27 04:42] LABS: pH ABG 7.252 (7.350-7.450)
[2021-03-27 04:43] LABS: Device VENTILATOR; Modified Allen's Test Pass; Site Drawn LEFT RADIAL
[2021-03-27 04:44] LABS: Arterial Blood Gas PEEP 5 cmH2O; Arterial Blood Gas Tidal Volume 420 ml; Arterial Blood Gas Vent Mode CMV; Arterial Blood Gas Ventilator rate 15 /MIN
[2021-03-27 04:47] LABS: Hematocrit 43.3 % (42.0-52.0); Hemoglobin 13.7 g/dL (14.0-18.0); Immature Granulocyte Absolute 0.04 K/mm3 (0.00-0.031); Immature Granulocyte Percent A 0.8 % (0-0.5); Lymphocytes Absolute Auto 0.29 K/mm3 (0.9-3.2); Lymphocytes Percent Auto 5.9 % (18.3-44.2); Mean Corpuscular HGB Conc 31.6 g/dl (32-36); Mean Corpuscular Hemoglobin 34.5 pg (26-34); Mean Corpuscular Volume 109.1 fl (80-100); Mean Platelet Volume 9.9 fl (7.4-10.4); Monocytes Absolute Auto 0.2 K/mm3 (0.1-0.6); Monocytes Percent Auto 4.1 % (2.6-8.5); Neutrophils Absolute Auto 4.4 K/mm3 (1.3-6.7); Neutrophils Percent Auto 89.2 % (45.5-73.1); Platelet Count Result 113 k/mm3 (150-375); Red Blood Count 3.97 M/mm3 (4.6-6.20); Red Cell Distribution Width 13.7 % (11.5-14.5); White Blood Count 4.9 K/mm3 (4.5-10.0)
[2021-03-27 05:00] LABS: Potassium 5.2 mmol/L (3.4-5.0)
[2021-03-27 05:08] LABS: Alanine Aminotransferase 28 U/L (4-50); Albumin Level 3.6 g/dL (3.5-5.1); Alkaline Phosphatase 68 U/L (38-126); Anion Gap 9 mmol/L (8-16); Aspartate Amino Transferase 29 U/L (17-59); Bilirubin,Total 0.2 mg/dL (0.2-1.3); Blood Urea Nitrogen 36 mg/dL (9-20); Calcium 7.8 mg/dL (8.4-10.2); Carbon Dioxide 23 mmol/L (22-30); Chloride 107 mmol/L (98-107); Estimated CRCL calculation 56 ml/min; Estimated Glomerular Filt Rate 52; Glucose 204 mg/dL (65-110); Magnesium 2.4 mg/dL (1.6-2.3); Phosphorus 4.7 mg/dL (2.5-4.5); Sodium 139 mmol/L (137-145)
[2021-03-27] MEDS: INSULIN ASPART (*BKC) 100 UNITS/ML SUB-Q (05:34)
[2021-03-27] MEDS: diphenhydrAMINE HCl INJ 50 MG/ML VIAL IV PUSH ×4 (05:34→23:16)
[2021-03-27] MEDS: methylPREDNISolone SOD SUCC 125 MG VIAL 60 MG IV PUSH ×4 (05:34→23:16)
[2021-03-27] MEDS: MINERAL OIL/WHITE PETROLATUM OINTMENT 1 APPLIC EACH EYE (07:38)
[2021-03-27] MEDS: FAMOTIDINE 20 MG/2 ML VIAL IV PUSH ×2 (07:38→20:32)
[2021-03-27] MEDS: ENOXAPARIN 40 MG/0.4 ML SYRINGE SUB-Q (07:38)
[2021-03-27] MEDS: PROPOFOL IV EMULSION 100 ML 8.64 MG IV CONT (07:47)
[2021-03-27] MEDS: dexmedeTOMIDine 400 MCG/100 ML 400 MCG/100 ML BAG IV CONT (09:34)
[2021-03-27] MEDS: polyethylene glycoL 3350 17 GM POWD.PACK PO (11:18)
[2021-03-27 11:32] LABS: Glucose Point of Care 200 mg/dl (65-105)
--- NOTE | 2021-03-27 11:56 | PCNFU ---
Nutrition Follow-Up Complete: Inadequate Oral Intake as related to mechanical ventilation as evidenced by NPO. Goal: Meet estimated nutritional needs Patient will continue current goal. Pt current nutrition is Vital AF 1.2 at 50 ml/hr over 22 hours. Last recorded weight is 90 kg,-stable Bowel Motility: No BM reported-starting Miralax Labs Reviewed:Mg 2.4, K 5.2,BUN 36, Cr 1.4,Hgb 13.7 Meds Noted:Propofol 15 mics=-228 kcals, Fentanyl,Solu Medrol, Benadryl, Pepcid,Lovenox Skin: WNL Additional Notes: Patient remains on mechanical vent and tube feedings of Vital AF 1.2 at 50 ml/hr over 22 hours. Propofol infusion is providing an additional 228 kcals. Current caloric intake 1548 kcals/82 gms protein/892 ml water. Meeting 85% of caloric needs,94% protein needs. Patient failed breathing trail today. Recommend increasing tube feeding rate to 60 ml/hr over 22 hours. Free water flush 30 ml q 4 hours. Monitoring: ICU rounds and reassessing every Tuesday and Tuesday
[2021-03-27] MEDS: hydrALAZINE HCL 20 MG/ML VIAL IV PUSH ×2 (12:55→19:03)
--- NOTE | 2021-03-27 13:24 | WPDINTPN ---
Progress Note: A&P Assessment and Plan (1) Acute respiratory failure: Code(s): J96.00 - Acute respiratory failure, unspecified whether with hypoxia or hypercapnia Status: Acute Assessment and Plan: Acute respiratory failure likely related to angioedema and swelling of the tongue, soft palate, tonsils. Patient also had hoarseness in voice and difficulty swallowing -continue CMV mode of ventilation, peep of 5, 40% FiO2 -chest x-ray and ABGs reviewed -switched patient to Precedex infusion intent of his fentanyl, Versed and propofol infusion patient is awake, follows simple commands and nods to questions -patient was a difficult intubation per ER report -patient has a good cuff leak -will place patient on SBT and evaluate for extubation (2) Angioedema: Qualifiers: Encounter type: initial encounter Qualified Code(s): T78.3XXA - Angioneurotic edema, initial encounter Code(s): T78.3XXA - Angioneurotic edema, initial encounter Status: Acute Assessment and Plan: Improving Angioedema likely related to lisinopril has been added to the allergies -continue Solu-Medrol -continue famotidine and Benadryl (3) DVT prophylaxis: Code(s): Z29.9 - Encounter for prophylactic measures, unspecified Status: Acute Assessment and Plan: Lovenox SQ Additional Plan Nutrition: Tolerating tube feeds Stress ulcer prophylaxis: Famotidine Code status: Full code Critical care time spent: 32 minutes This dictation may have been done utilizing a voice recognition system. Attempts have been made to correct errors. However, there may be uncorrected grammatical, spelling, and recognition errors present. Due to a high probability of clinically significant, life threatening deterioration, the patient required my highest level of preparedness to intervene emergently and I personally spent this critical care time directly and personally managing the patient. This critical care time included obtaining a history; examining the patient; pulse oximetry; ordering and review of studies; arranging urgent treatment with development of a management plan; evaluation of patient's response to treatment; frequent reassessment; and discussions with other providers. It was exclusive of separately billable procedures and treating other patients and teaching time. Please see Assessment and Plan section and the rest of the note for further information on patient assessment and treatment Subjective Date/time seen: 03/27/21 13:24 Interval history: Reason for consult: Acute respiratory failure, angioedema likely related to lisinopril use 03/26/2021: Patient seen and examined the ICU, remains intubated on mechanical ventilation, on 40% FiO2 and 5 of PEEP. Patient does have a good cuff leak. Swelling of the tongue and lip improved. Adequate urine output, Creatinine improving. Hemodynamically stable. Patient is sedated with propofol, fentanyl, Versed infusion. Patient is tolerating tube feeds Review of Systems Review of Systems: ROS unobtainable: Yes unobtainable due to endotracheal tube and unobtainable due to medical condition Exam Narrative: General: Intubated, sedated, no acute distress HEENT: ETT in place, tongue looks to be swollen, lips slightly swollen pupils are equal and reactive, sclerae is clear Neck: Supple no lymphadenopathy Respiratory: Clear to auscultation bilaterally, patient does have a good cuff leak Cardiac: S1-S2 normal, regular rate and rhythm Abdomen: Soft, nontender, nondistended, normoactive bowel sounds Extremities: Chronic venous stasis changes on bilateral lower extremities Neuro: Patient is intubated, sedated does not open his eyes or follow simple commands Skin: Dry and intact Psych: Unable to assess at this time Objective Data Vital Signs Vital Signs: Vital Signs - 24 hr 03/26/21 13:34 03/26/21 14:00 03/26/21 15:01 Temperature 99.1 F Pulse Rate 92 82 78 Respiratory
[2021-03-27 14:08] LABS: Alveolar/Arterial O2 Gradient 159.3 mmHg; Base Excess ABG -1.4 mEq/l (+/-2.0); Fractional Inspired Oxygen 40 %; HCO3 ABG 22.8 mEq/l (22.0-26.0); Oxygen Content ABG 20.5 %vol (16.0-22.0); Oxygen Saturation ABG 96.4 % (95.0-100.0); Oxyhemoglobin 95.9 % THb (90.0-100.0); PCO2 ABG 36.9 mmHg (35.0-45.0); PO2 ABG 83.5 mmHg (80.0-100.0); PO2 FiO2 Ratio Arterial Blood 2.09 %; Total Hemoglobin 15.2 g/dL (12.0-18.0); pH ABG 7.408 (7.350-7.450)
[2021-03-27 14:10] LABS: Arterial Blood Gas Vent Mode SPONTANEOUS; Device VENTILATOR; Modified Allen's Test Pass; Site Drawn RIGHT RADIAL
[2021-03-27 14:11] LABS: Arterial Blood Gas PEEP 5 cmH2O; Arterial Blood Gas Pressure Support 8 cmH2O
[2021-03-27] MEDS: amLODIPine BESYLATE 5 MG TABLET PO (23:16)
[2021-03-28] VITALS (14 sets, daily range): BP systolic 154–183; BP diastolic 84–102; PULSE 74–105; RESP 11–18; TEMP 36.4–37.7; O2SAT 90–97
[2021-03-28] MEDS: hydrALAZINE HCL 20 MG/ML VIAL IV PUSH ×2 (02:03→09:50)
[2021-03-28 04:22] LABS: Basophils Percent Auto 0.3 % (0.2-1.2); Hematocrit 46.4 % (42.0-52.0); Hemoglobin 15.1 g/dL (14.0-18.0); Immature Granulocyte Absolute 0.05 K/mm3 (0.00-0.031); Immature Granulocyte Percent A 0.8 % (0-0.5); Lymphocytes Absolute Auto 0.28 K/mm3 (0.9-3.2); Lymphocytes Percent Auto 4.8 % (18.3-44.2); Mean Corpuscular HGB Conc 32.5 g/dl (32-36); Mean Corpuscular Hemoglobin 34.2 pg (26-34); Mean Platelet Volume 9.6 fl (7.4-10.4); Monocytes Absolute Auto 0.4 K/mm3 (0.1-0.6); Monocytes Percent Auto 5.9 % (2.6-8.5); Neutrophils Absolute Auto 5.2 K/mm3 (1.3-6.7); Neutrophils Percent Auto 88.2 % (45.5-73.1); Platelet Count Result 118 k/mm3 (150-375); Red Blood Count 4.42 M/mm3 (4.6-6.20); Red Cell Distribution Width 13.5 % (11.5-14.5); White Blood Count 5.9 K/mm3 (4.5-10.0)
[2021-03-28 04:40] LABS: Alanine Aminotransferase 41 U/L (4-50); Alkaline Phosphatase 75 U/L (38-126); Anion Gap 7 mmol/L (8-16); Aspartate Amino Transferase 44 U/L (17-59); Bilirubin,Total 0.6 mg/dL (0.2-1.3); Blood Urea Nitrogen 35 mg/dL (9-20); Calcium 8.5 mg/dL (8.4-10.2); Carbon Dioxide 26 mmol/L (22-30); Chloride 104 mmol/L (98-107); Estimated CRCL calculation 71 ml/min; Estimated Glomerular Filt Rate > 60; Glucose 181 mg/dL (65-110); Magnesium 2.1 mg/dL (1.6-2.3); Phosphorus 3.6 mg/dL (2.5-4.5); Sodium 137 mmol/L (137-145)
[2021-03-28] MEDS: methylPREDNISolone SOD SUCC 125 MG VIAL 60 MG IV PUSH ×2 (05:44→18:20)
[2021-03-28] MEDS: diphenhydrAMINE HCl INJ 50 MG/ML VIAL IV PUSH (05:45)
[2021-03-28 06:05] LABS: C1 Esterase Inhibitor 97 % (>=68)
[2021-03-28] MEDS: FAMOTIDINE 20 MG/2 ML VIAL IV PUSH ×2 (09:44→21:31)
[2021-03-28] MEDS: amLODIPine BESYLATE 5 MG TABLET 10 MG PO (09:44)
[2021-03-28] MEDS: ENOXAPARIN 40 MG/0.4 ML SYRINGE SUB-Q (09:44)
[2021-03-28] MEDS: polyethylene glycoL 3350 17 GM POWD.PACK PO (09:45)
[2021-03-28] MEDS: METOPROLOL TARTRATE 50 MG TAB PO ×2 (12:15→21:29)
[2021-03-28] MEDS: diphenhydrAMINE HCl INJ 50 MG/ML VIAL 25 MG IV PUSH ×3 (12:15→23:03)
--- NOTE | 2021-03-28 13:07 | WPDINTPN ---
Progress Note: A&P Assessment and Plan (1) Acute respiratory failure: Code(s): J96.00 - Acute respiratory failure, unspecified whether with hypoxia or hypercapnia Status: Acute Assessment and Plan: Acute respiratory failure likely related to angioedema and swelling of the tongue, soft palate, tonsils. Patient also had hoarseness in voice and difficulty swallowing -patient was successfully extubated on 03/27/2021 -currently on2 L nasal cannula-with good O2 sats -swelling of the tongue and lips have resolved (2) Angioedema: Qualifiers: Encounter type: initial encounter Qualified Code(s): T78.3XXA - Angioneurotic edema, initial encounter Code(s): T78.3XXA - Angioneurotic edema, initial encounter Status: Acute Assessment and Plan: Swelling of the tongue and the resolved -will decrease Solu-Medrol to q.12 hours - Benadryl to 25 mg q.6 hours -continue famotidine Angioedema likely related to lisinopril has been added to the allergies (3) DVT prophylaxis: Code(s): Z29.9 - Encounter for prophylactic measures, unspecified Status: Acute Assessment and Plan: Lovenox SQ (4) Essential hypertension: Code(s): I10 - Essential (primary) hypertension Status: Acute Assessment and Plan: Patient on amlodipine and beta-vj -add clonidine (5) Alcohol use: Code(s): Z72.89 - Other problems related to lifestyle Status: Acute Assessment and Plan: Patient states he has drinks about half a pt of liquor every day -started on folic acid and thiamine -will check [facility] protocol (6) Tobacco use: Code(s): Z72.0 - Tobacco use Status: Acute Assessment and Plan: Patient states he smokes half a packet of cigarettes, I offered nicotine patch to which he refused -I did counseling specialist patient on cessation of smoking which he said he will think about it Additional Plan Nutrition: Tolerating clears, advanced as tolerated Stress ulcer prophylaxis: Famotidine Code status: Full code Critical care time spent: 32 minutes This dictation may have been done utilizing a voice recognition system. Attempts have been made to correct errors. However, there may be uncorrected grammatical, spelling, and recognition errors present. Due to a high probability of clinically significant, life threatening deterioration, the patient required my highest level of preparedness to intervene emergently and I personally spent this critical care time directly and personally managing the patient. This critical care time included obtaining a history; examining the patient; pulse oximetry; ordering and review of studies; arranging urgent treatment with development of a management plan; evaluation of patient's response to treatment; frequent reassessment; and discussions with other providers. It was exclusive of separately billable procedures and treating other patients and teaching time. Please see Assessment and Plan section and the rest of the note for further information on patient assessment and treatment Subjective Date/time seen: 03/28/21 13:07 Interval history: Reason for consult: Acute respiratory failure, angioedema likely related to lisinopril use -extubated 03/27/2021 03/28/2021: Patient was successfully extubated yesterday, currently on 2 L nasal cannula with good O2 sats. Patient is awake, alert, follows simple commands, tolerating liquids. His lip and tongue swelling has resolved. He denies any chest pain, shortness of breath, abdominal pain with nausea vomiting, drooling, denies any swelling of his tongue or lips Urine output has been adequate, patient is afebrile and hemodynamically stable -patient states he smokes half a packet of cigarettes daily, and does not wanting patch when asked him. He also drinks about half a pt of occur on a daily basis. He denied any illicit drug use. 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 Review of
[2021-03-28] MEDS: cloNIDine HCL 0.2 MG TABLET PO ×2 (15:04→21:28)
--- NOTE | 2021-03-28 21:49 | PC.NURSE ---
Patient transferred from ICU to Room 321 bed 2 and patient is in stable condition.
[2021-03-29 04:00] VITALS: PULSE 80
[2021-03-29] MEDS: methylPREDNISolone SOD SUCC 125 MG VIAL 60 MG IV PUSH (05:07)
[2021-03-29] MEDS: diphenhydrAMINE HCl INJ 50 MG/ML VIAL 25 MG IV PUSH ×2 (05:07→12:10)
[2021-03-29 07:56] LABS: Basophils Percent Auto 0.1 % (0.2-1.2); Hematocrit 46.4 % (42.0-52.0); Hemoglobin 15.3 g/dL (14.0-18.0); Immature Granulocyte Absolute 0.06 K/mm3 (0.00-0.031); Immature Granulocyte Percent A 0.7 % (0-0.5); Lymphocytes Absolute Auto 0.43 K/mm3 (0.9-3.2); Lymphocytes Percent Auto 5.1 % (18.3-44.2); Mean Corpuscular Hemoglobin 34.2 pg (26-34); Mean Corpuscular Volume 103.6 fl (80-100); Mean Platelet Volume 9.4 fl (7.4-10.4); Monocytes Absolute Auto 0.7 K/mm3 (0.1-0.6); Monocytes Percent Auto 8.2 % (2.6-8.5); Neutrophils Absolute Auto 7.3 K/mm3 (1.3-6.7); Neutrophils Percent Auto 85.9 % (45.5-73.1); Platelet Count Result 135 k/mm3 (150-375); Red Blood Count 4.48 M/mm3 (4.6-6.20); Red Cell Distribution Width 13.4 % (11.5-14.5); White Blood Count 8.5 K/mm3 (4.5-10.0)
[2021-03-29 08:00] VITALS: BP 140/84; PULSE 80; PULSE 90; RESP 18; O2SAT 96
[2021-03-29 08:29] LABS: Alanine Aminotransferase 70 U/L (4-50); Albumin Level 4.4 g/dL (3.5-5.1); Alkaline Phosphatase 73 U/L (38-126); Anion Gap 9 mmol/L (8-16); Aspartate Amino Transferase 55 U/L (17-59); Bilirubin,Total 0.9 mg/dL (0.2-1.3); Blood Urea Nitrogen 50 mg/dL (9-20); Calcium 8.6 mg/dL (8.4-10.2); Carbon Dioxide 22 mmol/L (22-30); Chloride 104 mmol/L (98-107); Estimated CRCL calculation 60 ml/min; Estimated Glomerular Filt Rate 56; Glucose 158 mg/dL (65-110); Magnesium 2.3 mg/dL (1.6-2.3); Potassium 4.3 mmol/L (3.4-5.0); Sodium 135 mmol/L (137-145)
[2021-03-29 09:56] VITALS: BP 140/84; PULSE 86; RESP 18; TEMP 36.2; O2SAT 96
[2021-03-29 10:09] VITALS: PULSE 90
[2021-03-29] MEDS: METOPROLOL TARTRATE 50 MG TAB PO (10:09)
[2021-03-29] MEDS: cloNIDine HCL 0.2 MG TABLET PO (10:09)
[2021-03-29] MEDS: ENOXAPARIN 40 MG/0.4 ML SYRINGE SUB-Q (10:10)
[2021-03-29] MEDS: amLODIPine BESYLATE 5 MG TABLET 10 MG PO (10:10)
[2021-03-29] MEDS: FAMOTIDINE 20 MG/2 ML VIAL IV PUSH (10:11)
[2021-03-29] MEDS: FOLIC ACID 1 MG TABLET PO (10:12)
[2021-03-29] MEDS: THIAMINE HCL 100 MG TABLET PO (10:12)
[2021-03-29] MEDS: polyethylene glycoL 3350 17 GM POWD.PACK PO (10:12)
[2021-03-29 10:27] LABS: Hemoglobin A1C 5.2 % (<5.7)
--- NOTE | 2021-03-29 13:27 | PM.DS ---
DS: Admitting Diagnosis Discharge Date 59 Admitting Diagnosis (1) Angioedema: Qualifiers: Encounter type: initial encounter Qualified Code(s): T78.3XXA - Angioneurotic edema, initial encounter Code(s): T78.3XXA - Angioneurotic edema, initial encounter Status: Acute (2) Difficult airway for intubation: Qualifiers: Encounter type: initial encounter Qualified Code(s): T88.4XXA - Failed or difficult intubation, initial encounter Code(s): T88.4XXA - Failed or difficult intubation, initial encounter Status: Acute (3) Lung mass: Code(s): R91.8 - Other nonspecific abnormal finding of lung field Status: Acute (4) Acute respiratory failure: Code(s): J96.00 - Acute respiratory failure, unspecified whether with hypoxia or hypercapnia Status: Acute DS: Discharge Diagnosis Discharge Diagnosis (1) Tobacco use: Code(s): Z72.0 - Tobacco use Status: Acute (2) Alcohol use: Code(s): Z72.89 - Other problems related to lifestyle Status: Acute (3) Essential hypertension: Code(s): I10 - Essential (primary) hypertension Status: Acute (4) DVT prophylaxis: Code(s): Z29.9 - Encounter for prophylactic measures, unspecified Status: Acute (5) Acute respiratory failure: Code(s): J96.00 - Acute respiratory failure, unspecified whether with hypoxia or hypercapnia Status: Acute (6) Angioedema: Qualifiers: Encounter type: initial encounter Qualified Code(s): T78.3XXA - Angioneurotic edema, initial encounter Code(s): T78.3XXA - Angioneurotic edema, initial encounter Status: Acute (7) Difficult airway for intubation: Qualifiers: Encounter type: initial encounter Qualified Code(s): T88.4XXA - Failed or difficult intubation, initial encounter Code(s): T88.4XXA - Failed or difficult intubation, initial encounter Status: Acute (8) Lung mass: Code(s): R91.8 - Other nonspecific abnormal finding of lung field Status: Acute (9) Polycystic kidney disease: Code(s): Q61.3 - Polycystic kidney, unspecified Status: Acute (10) Renal mass, left: Code(s): N28.89 - Other specified disorders of kidney and ureter Status: Acute DS: Summary Hospital Course Reason for hospitalization: impending airway occlusion, angioedema Hospital Course: 60-year-old male presents to the emergency room from nearby urgent care with complaint of throat swelling he was noted to be in respiratory distress and upon physical examination was found to have significant swelling of the soft tissue of the posterior found X soft palate tonsils with hoarseness of voice and drooling. He was emergently intubated transferred to the ICU where he received Solu-Medrol, Benadryl, famotidine. Initial intubation was difficult requiring assistance from Anesthesiology, however, patient was successfully extubated 03/27/2019 to a subsequently weaned from nasal cannula to room air. Angioedema involving oral pharyngeal airway face and lips resolved with treatment. Patient was noted to have been on CRICKET-inhibitor at home this medication was discontinued and he was placed on amlodipine. Patient improved as anticipated without complicated clinical course. He was counseled on tobacco and alcohol cessation prior to discharge. He was advised to follow-up with his primary care physician at the [facility] and to ensure that he threw away the lisinopril upon arrival home and also alerted his primary care physician to this new allergy. Additionally he was counseled to return to the ER if any face lip tongue or throat swelling recurred via 911 emergency ambulance services and was not to drive himself. Patient was discharged home on steroid taper. CT imaging findings of possible renal mass were reviewed with patient prior to discharge he declined any further CT imaging stay and stated that he already kn
== END 2021-03-29 14:45 | disposition home or self-care (01) | DRG 915 ==
LOC: ANHED 21:36 → ANHICU 03-25 11:29 → ANH3MEDSUR 03-29 09:32 → ANHICU 03-31 09:46
PROVIDERS: Internal Medicine; Admitting Provider Internal Medicine; Emergency Provider Emergency Medicine; Visit Provider Hospitalist
DX: T78.3XXA Angioneurotic edema, initial encounter (principal); J96.01 Acute respiratory failure with hypoxia; J95.89 Other postprocedural complications and disorders of respiratory system, not elsewhere classified; T46.4X5A Adverse effect of angiotensin-converting-enzyme inhibitors, initial encounter; I10 Essential (primary) hypertension; R91.8 Other nonspecific abnormal finding of lung field; F17.210 Nicotine dependence, cigarettes, uncomplicated; T88.4XXA Failed or difficult intubation, initial encounter; R73.9 Hyperglycemia, unspecified; T38.0X5A Adverse effect of glucocorticoids and synthetic analogues, initial encounter; Z72.89 Other problems related to lifestyle
CPT/HCPCS: 31500; 36415; 36600; 71045; 71250; 74176; 80053; 82375; 82805; 82948; 83036; 83050; 83520; 83735; 84100; 85025; 85610; 85652; 85730; 86140; 86160; 94003; 99285; A9270; J0171; J0330; J0360; J1200; J1650; J1815; J2250; J2704; J2930; J3010; J7030; J7120

== ENCOUNTER 2021-04-08 13:19 | Emergency (ER) | payer OTHER, SELFPAY ==
[2021-04-08 13:20] VITALS: BP 153/71; PULSE 130; RESP 36; TEMP 37.1; O2SAT 93
--- NOTE | 2021-04-08 13:34 | ED.GENADULT ---
HPI - General Adult General Chief complaint: Shortness of Breath/Dyspnea Stated complaint: sob Source: patient and RN notes reviewed Mode of arrival: ambulatory Limitations: no limitations History of Present Illness HPI narrative: 60-year-old male presented for complaint of right-sided chest pain, shortness of breath, onset today. On arrival he appeared short of breath, mouth breathing, labored, diaphoretic, tachycardic, O2 sat 87% on room air, oxygen applied at 5 L and oxygen became 93%. EKG showed sinus tach 122. 911 was called, EMS arrived and transported patient to nearest facility, [facility]. He states he drove to [place] and was told they could not care for him at the urgent care so he drove himself to the [facility] location. Of note, pt was dc from [facility] 03/29/21 for respiratory failure; had presented to [facility] prior to the hospitalization 03/24 and was intubated upon arrival to the ER at that time Related Data Allergies Allergy/AdvReac Type Severity Reaction Status Date / Time lisinopril Allergy Severe Swelling Verified 03/28/21 07:56 of Lip/Tongue/Throat Review of Systems Review of Systems: CONSTITUTIONAL:Denies chills, sweats, fever EYES: Denies visual changes, redness, or discharge ENT:denies rhinorrhea, congestion, sinus pain, otalgia, sore throat CARDIOVASCULAR: reports right chest pain, denies palpitations, edema RESPIRATORY: Reports right chest pain, sob GASTROINTESTINAL: Denies abdominal pain SKIN: Denies rash or itching MUSCULOSKELETAL: Denies myalgia NEUROLOGIC: Denies headache [facility] Past Medical History Medical History Hypertension Social History Social History Smoking status: Former smoker Alcohol intake: current Substance use: never Gender identity (if verbalized by the patient): Male Sexual Orientation (if Verbalized by the Patient): Straight or Heterosexual Spiritual care concerns: No Exam Narrative: GENERAL: Ill-appearing, diaphoretic HEAD: Normocephalic EYES: PERRLA, conjunctivae clear ENT: Mucous membranes moist. No tripod positioning, muffled voice, soft palate or pharyngeal wall bulging at this time NECK: Supple. No lymphadenopathy CHEST: Right lower lobe wheezing; speaks in full sentences. HEART: Regular rate and rhythm. No murmur heard. SKIN: Warm, dry, no rash. NEURO: Alert and oriented x3. PSYCH: Normal mood and affect Course Course Emergency Course: Portions of this record may have been created with voice recognition software Level of Care: Express Care Visit Vital Signs Vital signs: reviewed Medical Decision Making Differential Diagnosis Differential Diagnosis: acute MN, pneumonia, airway obstruction, aspiration, angioedema, PE, tension pneumothorax, pericarditis Vital Signs Vital Signs: reviewed ECG Data EKG #1: Attestation: I personally reviewed and interpreted this ECG as follows: ECG completion date: 04/08/21 ECG completion time: 13:30 Prior ECG tracings: not available for review EKG Interpretation: tachycardia, no ectopy, normal QRS and normal QT Discharge Plan Discharge Prescriptions: No Action prednisone 10 mg Tablet 40 mg PO DAILY@0800 5 Days Qty: 14 RF: 0 amlodipine [Norvasc] 5 mg Tablet 10 mg PO DAILY 30 Days Qty: 60 RF: 0 clonidine HCl 0.2 mg Tablet 0.2 mg PO Q12HR Qty: 60 RF: 0 metoprolol tartrate 50 mg Tablet 50 mg PO Q12HR Qty: 60 RF: 0
--- NOTE | 2021-04-08 17:43 | ECG_ITS ---
Measurements Intervals [place] Rate: 122 P: 33 MN: 150 QRS: -17 QRSD: 101 T: 44 QT: 323 QTc: 461 Interpretive Statements SINUS TACHYCARDIA CONSIDER INFERIOR INFARCT, AGE INDETERMINATE BASELINE ARTIFACT- I, II, III, AVR, AVL, AVF ABNORMAL ECG Electronically Signed On 04-09-2021 7:56:35 ORNAMENTAL MACHINE OPERATOR by Shad Barker D.O.
== END 2021-04-08 13:35 | disposition short-term general hospital (02) ==
PROVIDERS: Emergency Provider Nurse Practitioner Family
DX: R07.9 Chest pain, unspecified (principal); R06.02 Shortness of breath; R00.0 Tachycardia, unspecified; I10 Essential (primary) hypertension; Z87.891 Personal history of nicotine dependence
CPT/HCPCS: 93005; 99215; G0463

== ENCOUNTER 2021-04-08 13:47 | Inpatient (IN) | payer OTHER, SELFPAY ==
[2021-04-08] VITALS (9 sets, daily range): BP systolic 117–151; BP diastolic 70–86; PULSE 112–130; RESP 16–30; TEMP 36.4–37.4; O2SAT 89–96; BMI 27.1
--- NOTE | ~2021-04-08 | CT_ITS ---
EXAMINATION: CTA chest PE abdomen pel DATE: 04/11/2021 09:28 INDICATION: Shortness of breath TECHNIQUE: Computed tomography angiography (CTA) of the chest was performed with 100 mL Omnipaque-350 intravenous contrast timed to evaluate the pulmonary arteries. Subsequent postcontrast images of the abdomen and pelvis are obtained. Coronal maximum intensity projection 3D-reconstructions were create d by the technologist. The dose-length product (DLP) was 1376.41 mGy-cm. Automated exposure control a nd iterative reconstruction technique were employed. COMPARISON: 03/25/2021 FINDINGS: CTA CHEST: The pulmonary arteries are well-opacified. No pulmonary embolism is identified. There is a moderate-sized right pleural effusion with loculation anteriorly. Diffuse airspace opacities have de veloped throughout the right lower lobe. In addition, there are new areas of cavitary pneumonia in th e right lower lobe. Nodular and airspace opacities have also developed in the left lower lobe. Mild e mphysema is noted. There is no pneumothorax. There is mediastinal and right hilar lymphadenopathy. Ca lcified pulmonary nodules and calcified mediastinal lymph nodes are consistent with old granulomatous disease. The heart size is normal. ABDOMEN/PELVIS CT: There are multiple cysts of the liver which measure up to 5.1 cm in the left hepat ic lobe. Punctate calcifications in an otherwise normal spleen likely represent healed granulomatous disease. The gallbladder and adrenal glands are normal. Again noted is a 2.1 cm cyst in the body of t he pancreas. There are innumerable cysts of the kidneys. As previously noted, some measure soft tissu e attenuation. No pathologically enlarged abdominal or pelvic lymph nodes are identified. There is no free intraperitoneal gas or evidence of bowel obstruction. There is severe lumbar spondylosis. IMPRESSION: 1. Interval development of right lower lobe pneumonia with multiple areas of right lower lobe cavitat ion. 2. No pulmonary embolus identified. 3. Polycystic kidney disease with some soft tissue density masses of the kidneys. Consider follow-up CT or MRI without and with contrast. 4. Moderate-sized right pleural effusion with loculation anteriorly. Reviewed, dictated and finalized at location A. O RETOUCHER IMPRESSION: 1. Interval development of right lower lobe pneumonia with multiple areas of ri ght lower lobe cavitation. 2. No pulmonary embolus identified. 3. Polycystic kidney disease with some soft tissue density masses of the kidney s. Consider follow-up CT or MRI without and with contrast. 4. Moderate-sized right pleural effusion with loculation anteriorly.
--- NOTE | ~2021-04-08 | XR_ITS ---
EXAMINATION: XR chest 2V DATE: 04/08/2021 14:38 INDICATION: Shortness of breath. Fever. Recently presented. TECHNIQUE: PA and lateral views of the chest were obtained. COMPARISON: Chest radiograph dated 03/29/2021 FINDINGS: New consolidation in the posterior basilar right lower lobe consistent with pneumonia. Calcified righ t middle lobe nodules and calcified mediastinal lymph nodes consistent with old granulomatous disease . No pulmonary edema, pleural effusion or pneumothorax. The cardiomediastinal silhouette is normal. A few bilateral old rib fractures. IMPRESSION: 1. Right lower lobe pneumonia. Reviewed, dictated and finalized at location A. THERAPY ASST
--- NOTE | ~2021-04-08 | US_ITS ---
EXAMINATION: US thoracentesis DATE: 04/12/2021 12:10 INDICATION: pleural effusion TECHNIQUE: The procedure and its risks, benefits, and alternatives were discussed with the patient. P otential risks discussed included bleeding, infection, and pneumothorax. The patient understood the r isks and agreed to proceed. The skin was prepped and draped in sterile fashion. 1% lidocaine was used for local anesthesia. Under ultrasound guidance, a 5 Fr catheter with trochar was advanced into the right pleural effusion in two locations. Fluid was aspirated. The catheter was removed, and a dressin g was applied. There were no immediate complications. FINDINGS: Ultrasound images demonstrate a right pleural effusion and the catheter within the fluid. The effusio n is loculated. IMPRESSION: 1. Successful ultrasound-guided thoracentesis yielding 50 mL of opaque, yellow-marcelino fluid. Reviewed, dictated and finalized at location A. LY DAY CARE PROVIDER IMPRESSION: 1. Successful ultrasound-guided thoracentesis yielding 50 mL of opaque, yellow -marcelino fluid.
--- NOTE | ~2021-04-08 | XR_ITS ---
EXAMINATION: XR chest 1V portable EXAM DATE: 04/10/2021 10:10 INDICATION: shortness of breath; possible fluid overload TECHNIQUE: Portable AP frontal chest x-ray was obtained. Comparison is made to prior examination from 04/08/2021. FINDINGS: Moderate right-sided pleural effusion, small left pleural effusion, progression compared to prior study. Progression in ill-defined bilateral airspace disease probably pulmonary edema. Pneumon ia not excludable. No pneumothorax. Mild cardiomegaly. IMPRESSION: 1. Progression of pleural effusions and basilar edema. Reviewed, dictated and finalized at location B. L MAKER LOCKSTITCH
--- NOTE | ~2021-04-08 | US_ITS ---
EXAMINATION: US abdomen limited DATE: 04/09/2021 14:40 INDICATION: Abdominal pain TECHNIQUE: Multiple grayscale and Doppler ultrasound images of the abdomen were obtained. COMPARISON: None FINDINGS: The region of the pancreas is obscured by shadowing bowel gas in the stomach. Multiple anechoic cysts scattered throughout the liver, the largest measuring up to 5.4 cm. There is normal surrounding live r parenchymal echogenicity. Smooth liver surface. No solid liver lesion identified. There appears to be mild intrahepatic biliary ductal dilation. Portal venous flow was seen in the hepatopetal, normal direction and has normal Doppler waveform. Decompressed gallbladder is normal. No cholelithiasis. The common bile duct is mildly dilated measuring up to 7 mm. Sonographic Jacome sign was reported as neg ative by the mail room clerk. Multiple anechoic cysts are seen throughout the visualized right kidney. Vi sualized portion of the proximal inferior vena cava is normal. IMPRESSION: 1. Nonspecific mild intra and extra hepatic biliary ductal dilation with normal decompressed gallblad aviva and without evident cholelithiasis. Correlate with liver function tests. 2. Numerous hepatic and right renal cysts consistent with autosomal dominant polycystic kidney diseas e. Reviewed, dictated and finalized at location A. SYSTEM ADMINISTRATOR IMPRESSION: 1. Nonspecific mild intra and extra hepatic biliary ductal dilation with normal decompressed gallbladder and without evident cholelithiasis. Correlate with li yashira function tests. 2. Numerous hepatic and right renal cysts consistent with autosomal dominant po lycystic kidney disease.
--- NOTE | ~2021-04-08 | XR_ITS ---
EXAMINATION: [id number] DATE: 04/12/2021 11:53 INDICATION: Right pleural effusion status post thoracentesis. TECHNIQUE: Frontal and lateral views of the chest were obtained. COMPARISON: Chest 2 views 04/08/2021, chest CT 04/11/2021 FINDINGS: There is a moderate-sized loculated right pleural effusion. There are airspace opacities in all right lung zones with a basilar predominance. There are mild airspace opacities in left lower romain ng zone. No pneumothorax. The heart size is normal. IMPRESSION: 1. Airspace opacities in right lung and left lower lung zone, consistent with pneumonia. 2. Moderate-sized loculated right pleural effusion, worsened from 04/08/2021. Reviewed, dictated and finalized at location A. RATION MANAGER IMPRESSION: 1. Airspace opacities in right lung and left lower lung zone, consistent with p neumonia. 2. Moderate-sized loculated right pleural effusion, worsened from 04/08/2021.
--- NOTE | ~2021-04-08 | US_ITS ---
EXAMINATION: US venous doppler LE EXAM DATE: 04/10/2021 12:34 INDICATION: Bilateral swelling. TECHNIQUE: Multiple grayscale, color flow and Doppler images of the lower extremity deep venous syste ms bilaterally were obtained and reviewed. There is no prior study for comparison. FINDINGS: Right side: The right common femoral, femoral and profunda veins demonstrate normal color flow, respi ratory variation, augmentation and compressibility. Compressibility, color flow confirmed within the right popliteal, posterior tibial, peroneal, and greater saphenous veins. Left side: The left common femoral, femoral and profunda veins demonstrate normal color flow, respira tory variation, augmentation and compressibility. Compressibility, color flow confirmed within the l eft popliteal, posterior tibial, peroneal, and greater saphenous veins. IMPRESSION: 1. No lower extremity deep venous thrombosis bilaterally. Reviewed, dictated and finalized at location B. ARYNGOLOGY REP
--- NOTE | 2021-04-08 14:23 | ECG_ITS ---
Measurements Intervals [place] Rate: 116 P: 41 LA: 135 QRS: -19 QRSD: 100 T: 44 QT: 336 QTc: 468 Interpretive Statements SINUS TACHYCARDIA CONSIDER INFERIOR INFARCT, AGE INDETERMINATE ABNORMAL ECG Electronically Signed On 04-08-2021 15:03:17 REQUIREMENTS ANALYST by Shad Barker D.O.
[2021-04-08 14:54] LABS: Alanine Aminotransferase 25 U/L (4-50); Albumin Level 3.1 g/dL (3.5-5.1); Alkaline Phosphatase 73 U/L (38-126); Anion Gap 6 mmol/L (8-16); Aspartate Amino Transferase 56 U/L (17-59); Bilirubin,Total 0.9 mg/dL (0.2-1.3); Blood Urea Nitrogen 27 mg/dL (9-20); Carbon Dioxide 22 mmol/L (22-30); Chloride 99 mmol/L (98-107); Estimated CRCL calculation 55 ml/min; Estimated Glomerular Filt Rate 52; Glucose 193 mg/dL (65-110); Potassium 4.2 mmol/L (3.4-5.0); Sodium 127 mmol/L (137-145)
[2021-04-08 15:01] LABS: Hematocrit 36.1 % (42.0-52.0); Mean Corpuscular HGB Conc 33.2 g/dl (32-36); Mean Corpuscular Hemoglobin 34.1 pg (26-34); Mean Corpuscular Volume 102.6 fl (80-100); Mean Platelet Volume 9.9 fl (7.4-10.4); Platelet Count Result 221 k/mm3 (150-375); Red Blood Count 3.52 M/mm3 (4.6-6.20); Red Cell Distribution Width 12.7 % (11.5-14.5)
[2021-04-08 15:17] LABS: Band Neutrophils Percent 9 % (0-6); Lymphocytes Absolute Manual 0.96 K/mm3 (1.1-4.5); Monocytes Absolute Manual 0.64 K/mm3 (0.1-0.90); Monocytes Percent Manual 4 % (3-9); Neutrophils Percent Manual 81 % (46-73); Total Cells Counted 100
[2021-04-08 15:18] LABS: Platelet Estimate Adequate (Adequate)
--- NOTE | 2021-04-08 15:35 | ED.CHESTPAIN ---
HPI - Chest Pain General Chief Complaint: Chest Pain Stated Complaint: SOB Time Seen by Provider: 04/08/21 14:33 Source: patient and EMS Mode of arrival: EMS Limitations: no limitations History of Present Illness HPI narrative: Patient is 60 years old white female presents with right chest pain started gradually 3 days ago, constant, worse with activity. Patient denies shortness of breath. Patient is not on oxygen at home. Patient lives alone, went to urgent care this morning then referred to the emergency room by ambulance. Patient is actively smoking and drinking, denies drug use.. Last second dose of COVID vaccine was last month, patient had history of Covid infection June 2020 Related Data Allergies Allergy/AdvReac Type Severity Reaction Status Date / Time lisinopril Allergy Severe Swelling Verified 04/08/21 14:04 of Lip/Tongue/Throat Review of Systems Review of Systems: CONSTITUTIONAL: Denies fever, chills, or sweats. EYES: Denies visual changes, redness, or discharge. ENT: Denies rhinorrhea, congestion, sore throat, or otalgia. CARDIOVASCULAR: Denies chest pain, palpitations, or edema. RESPIRATORY: Denies cough or dyspnea. GASTROINTESTINAL: Denies abdominal pain, nausea, vomiting, or diarrhea. GENITOURINARY: Denies dysuria or hematuria. SKIN: Denies rash or itching. MUSCULOSKELETAL: Denies back pain, joint pain, or myalgia. NEUROLOGIC: Denies headache, numbness, or weakness. PSYCHIATRIC: Denies anxiety or depression. PMFSH Past Medical History Medical History Hypertension Social History Social History Smoking status: Former smoker Alcohol intake: current Substance use: never Gender identity (if verbalized by the patient): Male Sexual Orientation (if Verbalized by the Patient): Straight or Heterosexual Spiritual care concerns: No Exam Narrative: General appearance: Well-developed, well-nourished Skin: Normal color Head: Normocephalic, nontraumatic Eyes: Clear conjunctiva ENT: Oropharynx normal, ears normal, nose normal Neck: Supple, nontender Chest and respiratory: Airway patent, no respiratory distress, no accessory muscle use Heart: Tachycardia Abdomen: Soft, nontender, no organomegaly, quiet bowel sounds Vascular: Normal peripheral pulses, normal capillary refill. Musculoskeletal: Normal range of motion, nontender back Neurologic: Alert and oriented ?3, TEXTURE ARTIST is normal as tested, no gross motor deficit Course Course Emergency Course: Stable Vital Signs Vital signs: Vital Signs Temperature 37.4 C 04/08/21 13:50 Pulse Rate 118 H 04/08/21 13:50 Respiratory Rate 30 H 04/08/21 13:50 Blood Pressure 130/75 04/08/21 13:50 Pulse Oximetry 96 04/08/21 13:50 Temperature 37.4 C 04/08/21 13:50 Pulse Rate 118 H 04/08/21 13:50 Respiratory Rate 18 04/08/21 15:20 Blood Pressure 130/75 04/08/21 13:50 Pulse Oximetry 96 04/08/21 13:50 MDM - Chest Pain MDM Narrative Medical decision making narrative: Patient presents with right chest pain over the last 3 days. Differential diagnosis as below. Work-up showed right lower lobe pneumonia, aspiration is a possibility especially patient was recently intubated for angioedema. Levaquin IV ordered. Differential Diagnosis Differential diagnosis: Likely pneumothorax, atypical chest pain and other (Pneumonia, pulmonary embolism, pleurisy) Lab Data Result diagrams: 04/08/21 14:40 04/08/21 14:40 Labs: Lab Results 04/08/21 04/08/21 04/08/21 Range/Units 14:40 14:40 15:57 WBC 16.0 H (4.5-10.0) K/mm3 RBC 3.52 L (4.6-6.20) M/mm3 Hgb 12.0 L D (14.0-18.0) g/dL Hct 36.1 L (42.0-52.0) % MCV 102.6 H (80-100) fl MCH 34.1 H (26-34) pg MCHC 33.2 (32-36) g/dl RDW 12.7 (11.5-14.5) % Plt Count 221 D (150-375) k/mm3 MPV 9.9 (7.4-10.4) fl Immature Gran % (Auto) Not Reportable Neut % (Auto) Not Reportable Lymph % (Auto) Not Reportable [place] % (Auto) Not Reportable Eos % (Auto) Not Reportable Baso % (Auto) Not Reportable Lymph # (Auto) Not Reportable [place] # (Auto) Not Reportable Eos # (Auto) Not Reportable Baso # (Auto) Not Reportable Abs Immat Gran (auto) Not Reportable Absolute Neuts (auto) Not Reportable Absolute Nucleated RBC Not Reportable Total Counted 100 Neutrophils % (Manual) 81 H (46-73) % Band Neutrophils % 9 H (0-6) % Lymphocytes % (Manual) 6.0 L (18-44) % Monocytes % (Manual) 4 (3-9) % Nucleated RBC % Not Reportable Abs Neuts (Manual) 14.40 H (1.3-6.7) K/mm3 Abs Lymphs (Manual) 0.96 L (1.1-4.5) K/mm3 Abs Monocytes (Manual) 0.64 (0.1-0.90) K/mm3 Platelet Estimate Adequate (Adequate) Sodium 127 L (137-145) mmol/L Potassium 4.2 (3.4-5.0) mmol/L Chloride 99 (98-107) mmol/L Carbon Dioxide 22 (22-30) mmol/L Anion Gap 6 L (8-16) mmol/L BUN 27 H D (9-20) mg/dL Creatinine 1.40 H (0.7-1.3) mg/dL Estim Creat Clear Calc 55 ml/min Estimated GFR 52 L (59 - ) Glucose 193 H (65-110) mg/dL Calcium 8.0 L (8.4-10.2) mg/dL Total Bilirubin 0.9 (0.2-1.3) mg/dL AST 56 (17-59) U/L ALT 25 (4-50) U/L Alkaline Phosphatase 73 (38-126) U/L Total Protein 6.0 L (6.3-8.2) g/dL Albumin 3.1 L (3.5-5.1) g/dL SARS-CoV-2 RNA (RT-PCR) Pending ABG Data ABG results: 04/08/21 15:56 Puncture Site Left brachial ABG pH 7.505 H* ABG pCO2 28.1 L ABG pO2 53.6 L ABG PO2/FiO2 Ratio 2.55 ABG HCO3 21.7 L ABG O2 Saturation 91.1 L ABG O2 Content 15.8 L ABG Base Excess -0.3 A-a Gradient 62.5 Oxyhemoglobin 87.4 L* Total Hemoglobin 12.9 O2 Delivery Device Room air O2 Liters/Min 0.0 FiO2 21 Critical Care Time Critical Care Time Critical Care Time: Yes Total Critical Care Time: 50 Discharge Plan Discharge Clinical Impression: Acute hyponatremia, Dehydration Pneumonia Qualifiers: Pneumonia type: due to unspecified organism Laterality: right Lung location: lower lobe of lung Qualified Code(s): J18.9 - Pneumonia, unspecified organism Patient Disposition: Still a Patient Condition: Stable Additional Instructions: Admit to hospitalist Prescriptions: No Action amlodipine [Norvasc] 5 mg Tablet 10 mg PO DAILY 30 Days Qty: 60 RF: 0 clonidine HCl 0.2 mg Tablet 0.2 mg PO Q12HR Qty: 60 RF: 0 metoprolol tartrate 50 mg Tablet 50 mg PO Q12HR Qty: 60 RF: 0 Follow-up/Referrals: PHYSICIAN,MARKETING REPRESENTATIVE [Primary Care Provider] -
[2021-04-08 16:00] LABS: Alveolar/Arterial O2 Gradient 62.5 mmHg; Base Excess ABG -0.3 mEq/l (+/-2.0); Fractional Inspired Oxygen 21 %; HCO3 ABG 21.7 mEq/l (22.0-26.0); Oxygen Content ABG 15.8 %vol (16.0-22.0); Oxygen Saturation ABG 91.1 % (95.0-100.0); PCO2 ABG 28.1 mmHg (35.0-45.0); PO2 ABG 53.6 mmHg (80.0-100.0); PO2 FiO2 Ratio Arterial Blood 2.55 %; Total Hemoglobin 12.9 g/dL (12.0-18.0)
--- NOTE | 2021-04-08 16:00 | PM.IMHP ---
H&P: HPI History of Present Illness Date/Time: 04/08/21 16:00 Chief Complaint: Right-sided chest pain. Narrative: This is a pleasant 60-year-old male smoker with history of hypertension, polycystic kidney disease, and alcohol abuse who presented to the emergency department today via EMS from urgent care for evaluation of right-sided chest pain. 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 He has done well up until the past 3 days when he developed right-sided pleuritic chest pain, shortness of breath and cough productive of yellow phlegm. Today he went to urgent care and on arrival he was diaphoretic, tachycardic, tachypneic, and hypoxic with an SpO2 of 87% on room air. He was directed to the emergency department where chest x-ray showed right lower lobe pneumonia and he is being admitted in this setting. At the time my evaluation he is feeling better simply with the oxygen and IV fluid rehydration. He has had some sweats but denies chills and fever. He also denies exertional chest pain, orthopnea, PND, nausea, vomiting, and diarrhea. He denies dysphagia and has no concerns for aspiration. There is no mention in his medical records of concerns for aspiration with his recent hospitalization. No sick contacts or known COVID exposure. Review of Systems Review of Systems: Twelve systems were reviewed. He has never had symptoms of alcohol withdrawal or alcohol withdrawal seizures. He is tachycardic and a bit diaphoretic at the time my evaluation but maintains that he is not anxious. He is not tremulous and he denies hallucinations. Except as documented, all other systems reviewed and are negative. 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 Family History Family History (Updated 04/08/21 @ 22:59 by Leanna Rodriguez PA-C) Other Hypertension Social History Social History (Updated 04/08/21 @ 23:00 by Leanna Rodriguez PA-C) Social History: The patient lives in [place] With family members. He smokes about 10 cigarettes a day and drinks a pint of whiskey most days. Denies drug use. He designates his father, Donell Navarro, as his surrogate decision maker. Code status: Full code. Meds Home Medications and Allergies Home Medications Medication Instructions Recorded Confirmed Type amlodipine [Norvasc] 10 mg PO DAILY 30 Days #60 tablet 03/29/21 04/08/21 Rx clonidine HCl 0.2 mg PO Q12HR #60 tablet 03/29/21 04/08/21 Rx metoprolol tartrate 50 mg PO Q12HR #60 tablet 03/29/21 04/08/21 Rx Allergies Allergy/AdvReac Type Severity Reaction Status Date / Time lisinopril Allergy Severe Swelling Verified 04/08/21 18:47 of Lip/Tongue/Throat Vital Signs Vital Signs - 24 hr 04/08/21 13:50 04/08/21 15:20 04/08/21 16:41 Temperature 99.4 F Pulse Rate 118 H Respiratory Rate 30 H 18 Blood Pressure 130/75 Pulse Oximetry 96 96 04/08/21 17:17 04/08/21 17:18 04/08/21 18:30 Temperature Pulse Rate 112 H 112 H Respiratory Rate 22 H 24 H Blood Pressure 117/86 118/74 Pulse Oximetry 89 L 94 95 04/08/21 19:00 04/08/21 19:42 Temperature 97.5 F L 98.1 F Pulse Rate 130 H Respiratory Rate 24 H Blood Pressure 151/76 H Pulse Oximetry 91 Exam Narrative: General: Moderately ill-appearing male sitting up in bed. Weight: 91 kg. BMI: 27.2. HEENT: PERRL, EOMI. Sclerae anicteric. Tacky mucous membranes. Oropharynx clear. Neck: Supple. No adenopathy or JVD. Respiratory: Mild tachypnea. He is able to speak in full sentences and appears in no distress. Faint crackles and bronchial breath sounds at the right base. Cardiovascular: Tachycardic with S1-S2. Monitor shows sinus tachycardia in the 1 teens. Gastrointestinal: Abdomen is soft, nontender, and nondistended with positive bowel sounds. Skin: Warm and slightly diaphoretic. Good capillary refill. Extremities: No cyanosis, clubbing, or edema. Radial and pedal pulses intact. Neurological: Alert and oriented. Cranial nerves 2-12 are grossly intact. No gross focal deficits to casual conversation. Psychiatric: Appropriate mood and affect. H&P: Results Labs Labs: Short CBC 04/08/21 Range/Units 14:40 WBC 16.0 H (4.5-10.0) K/mm3 Hgb 12.0 L D (14.0-18.0) g/dL Hct 36.1 L (42.0-52.0) % Plt Count 221 D (150-375) k/mm3 BMP 04/08/21 14:40 Sodium 127 L Potassium 4.2 Chloride 99 Carbon Dioxide 22 BUN 27 H D Creatinine 1.40 H Glucose 193 H Calcium 8.0 L Liver Function 04/08/21 Range/Units 14:40 Total Bilirubin 0.9 (0.2-1.3) mg/dL AST 56 (17-59) U/L ALT 25 (4-50) U/L Alkaline Phosphatase 73 (38-126) U/L Albumin 3.1 L (3.5-5.1) g/dL Imaging Chest X-Ray 04/08/21 14:45 IMPRESSION: 1. Right lower lobe pneumonia. Assessment and Plan Assessment and plan (1) Sepsis: Code(s): A41.9 - Sepsis, unspecified organism Status: Acute Assessment and Plan: Present on admission and supported by tachycardia, tachypnea, and leukocytosis with bandemia in the setting of pneumonia. Lactic acid levels within normal limits. Blood pressures have been stable. Blood and sputum cultures pending. (2) Right lower lobe pneumonia: Code(s): J18.9 - Pneumonia, unspecified organism Status: Acute Assessment and Plan: He received a dose of azithromycin and ceftriaxone in the emergency department. Given his recent hospitalization in addition to meeting sepsis criteria, I am going to broaden his coverage and start him on cefepime and vancomycin. Sputum culture pending. Check for strep pneumonia and Legionella antigens as well. (3) Chronic kidney disease: Code(s): N18.9 - Chronic kidney disease, unspecified Status: Acute Assessment and Plan: Creatinine is stable on review of previous labs and will be monitored. (4) Macrocytic anemia: Code(s): D53.9 - Nutritional anemia, unspecified Status: Acute Assessment and Plan: Check B12, folate, and iron studies. (5) Hypertension: Code(s): I10 - Essential (primary) hypertension Status: Acute Assessment and Plan: Blood pressures were reviewed and they are stable. Continue antihypertensives with parameters and monitor closely. (6) Alcohol abuse: Code(s): F10.10 - Alcohol abuse, uncomplicated Status: Acute Assessment and Plan: He denies ever having signs/symptoms of alcohol withdrawal. Initiate CIWA protocol. Start thiamine and folic acid. (7) Tobacco abuse: Code(s): Z72.0 - Tobacco use Status: Acute Assessment and Plan: We did not discuss smoking cessation as I think he needs to focus 1st and foremost on curving his alcohol use. He declines the need for nicotine patch at this time. (8) Hyponatremia: Code(s): E87.1 - Hypo-osmolality and hyponatremia Status: Acute Assessment and Plan: May very well be related to underlying pneumonia. He is a bit dry on exam thus will give him a L of normal saline overnight. Quality VTE Prophylaxis VTE prophylaxis: pharmacologic ordered Supervising physician for this history and physical is Dr. Jamia Marie.
[2021-04-08 16:02] LABS: pH ABG 7.505 (7.350-7.450)
[2021-04-08 16:03] LABS: Device ROOM AIR; Oxyhemoglobin 87.4 % THb (90.0-100.0); Site Drawn LEFT BRACHIAL
[2021-04-08 16:46] LABS: SARS-CoV-2 RNA PCR Negative
[2021-04-08 16:47] LABS: Lactic Acid Reflex 1.4 mmol/L (0.7-2.1)
[2021-04-08 16:48] LABS: Partial Thromboplastin Time 29.4 SECONDS (22.3-36.8)
[2021-04-08] MEDS: SODIUM CHLORIDE 0.9% IV 1,000 ML 999 ML IV CONT (16:48)
[2021-04-08 17:56] LABS: CRP 24.8 mg/dL (<1.0)
--- NOTE | 2021-04-08 18:54 | ADMGEN ---
This patient, Anton Navarro, was admitted to 2 Medical Room 259-01. Patient/family oriented to hospital policies and general routines including ID bracelet, bed and alarms, visiting hours, pain management, procedures, bathroom and other care routines, personal items, smoking policy, room service/diet, and visiting hours. Information on how to activate the Rapid Response Team has been discussed. Patient/Family are encouraged to report perceived risks to care and to ask questions if they do not understand what they are told or what they should do.
[2021-04-08] MEDS: SODIUM CHLORIDE 0.9% IV 1,000 ML 125 ML IV CONT (20:13)
[2021-04-09] VITALS (9 sets, daily range): BP systolic 118–158; BP diastolic 63–72; PULSE 93–105; RESP 18–22; TEMP 36.6–36.8; O2SAT 91–98
--- NOTE | 2021-04-09 | ECHO_ITS ---
Patient Info Name: Anton Navarro Age: 60 years : 1960 Gender: Male Ht: 72 in Wt: 199 lbs BSA: 2.15 m2 HR: 85 bpm BP: 137 / 71 mmHg Heart Rhythm: Sinus Rhythm Technical Quality: Fair Exam Date: 04/09/2021 11:58 AM Exam Location: [facility] Pulmonary Exam Room: 259 Patient Status: Inpatient Admit Date: 04/08/2021 Staff Ordering Physician: Randall Trejo Big Data Engineer: Silvia Fontenot RDCS Attending Provider: Mauri Bernardo MD Referring Physician: Neil AKINS; Exam Type: CA echo doppler color flow Study Info Indications - CHEST PAIN Complete two-dimensional, color flow and Doppler transthoracic echocardiogram is performed. Summary 1. Complete two-dimensional, color flow and Doppler transthoracic echocardiogram is performed. 2. Left ventricular chamber dimension is normal. 3. Left ventricular systolic function is normal, estimated at 65-70%. 4. There is mildly increased left ventricular wall thickness. 5. The left ventricular diastolic function is grade I diastolic dysfunction. 6. Left atrial chamber dimension is mildly enlarged. 7. There is mild aortic valve regurgitation. 8. There is mild aortic valve sclerosis. 9. There is mild mitral valve regurgitation. 10. There is mild tricuspid valve regurgitation. 11. Echolucent structures seen in the liver. Likely cysts. Consider dedicated right upper quadrant ultrasound. Left Ventricle Left ventricular chamber dimension is normal. Left ventricular systolic function is normal, estimated at 65-70%. There is mildly increased left ventricular wall thickness. The left ventricular diastolic function is grade I diastolic dysfunction. Right Ventricle Right ventricular chamber dimension is normal. Right ventricular systolic function is normal. Left Atria Left atrial chamber dimension is mildly enlarged. Right Atria Right atrial chamber dimension is normal. Atrial Septum Intact interatrial septum visualized by color flow imaging. Aortic Valve The aortic valve is trileaflet. There is mild aortic valve sclerosis. There is no aortic valve stenosis. There is mild aortic valve regurgitation. Pulmonic Valve The pulmonic valve is normal. There is no pulmonic valve stenosis. There is trace pulmonic regurgitation. Mitral Valve The mitral valve has thickened leaflets. There is no mitral valve stenosis. There is mild mitral valve regurgitation. Tricuspid Valve The tricuspid valve leaflets are normal. There is no significant tricuspid valve stenosis. There is mild tricuspid valve regurgitation. No pulmonary hypertension, estimated pulmonary arterial systolic pressure is 28 mmHg. Other Findings Echolucent structures seen in the liver. Likely cysts. Consider dedicated right upper quadrant ultrasound. Pericardium/Pleural The pericardium appears normal. There is no pericardial effusion. Inferior Vena Cava Normal inferior vena cava with >50% collapse upon inspiration consistent with normal right atrial pressure, 10 mmHg. Aorta The aortic root size at the sinus of Valsalva is normal. Left Ventricular Outflow Tract Name Value Normal LVOT 2D LVOT Diameter 2.1 cm LVOT Doppler LVOT Peak Gradient 5 mmHg LVOT Mean Gradient 3 mmHg LVOT VTI 19 cm LVOT VTI/AV VTI Ratio 0.9 LVOT Stroke Volume 67 ml LVOT CO 16.0 l/min LVOT CI 7.4 l/min/m2 Pulmonic Valve Name Value Normal PV Doppler PV Peak Gradient 3 mmHg Mitral Valve Name Value Normal MV Doppler MV Decel Hettinger 291 cm/s2 MV PHT 48 ms MV Area (PHT) 4.6 cm2 4.0-5.0 MV Diastolic Function MV E Peak Velocity 48 cm/s MV A Peak Velocity 73 cm/s MV E/A 0.7 MV Decel Time 165 ms Tricuspid Valve Name Value Normal TV Regurgitation Doppler TR Peak Velocity 214 cm/s TR Peak Gradient 18 mmHg Estimated PAP/RSVP RA Pressure 10 mmHg <=5 PA Systolic Pressure 28 mmHg <36 RV Systolic Pressure 28 mmHg <36 Aorta Name Value Normal Ascending Aorta Ao Root Diameter (MM) 3.8 cm Ao Root Diam Index (MM) 1.8 cm/m2 Aortic Valve Name Value Normal AV Doppler AV Peak Velocity 116 cm/s AV Peak Gradient 5 mmHg AV Mean Gradient 3 mmHg AV VTI 20 cm AV Area (Cont Eq VTI) 3.4 cm2 >=3.0 AV Area (Cont Eq Humphrey) 3.4 cm2 AV Regurgitation 2D LVOT Area 3.6 cm2 Ventricles Name Value Normal LV Dimensions 2D/MM IVS Diastolic Thickness (2D) 1.3 cm 0.6-1.0 LVID Diastole (2D) 4.5 cm 4.2-5.8 LVIW Diastolic Thickness (2D) 1.1 cm 0.6-1.0 LVID Systole (2D) 2.8 cm 2.5-4.0 LVOT Diameter 2.1 cm LV Mass (2D Cubed) 207.34 g 88.00-224.00 LV Mass Index (2D Cubed) 96 g/m2 49-115 Relative Wall Thickness (2D) 0.50 LV Fractional Shortening/Ejection Fraction 2D/MM LV Fractional Shortening (2D) 38 % 25-43 LV EF (2D Teicholz) 68 % 52-72 LV Diastolic Volume (4C MOD) 58 ml LV EF (4C MOD) 67 % LV Diastolic Volume (2C MOD) 68 ml LV EF (2C MOD) 69 % LV Diastolic Volume (BP MOD) 63 ml 62-150 LV Diastolic Volume Index (BP MOD) 29 ml/m2 34-74 LV Systolic Volume (BP MOD) 21 ml 21-61 LV Systolic Volume Index (BP MOD) 10 ml/m2 11-31 LV EF (BP MOD) 67 % 52-72 LV Diastolic Length (4C) 8.6 cm LV Systolic Length (4C) 6.1 cm LV Stroke Volume (4C MOD) 39 ml Atria Name Value Normal LA Dimensions LA Dimension (MM) 4.4 cm 3.0-4.1 LA Volume (4C A-L) 88 ml LA Volume (BP A-L) 98 ml RA Dimensions RA Area (4C) 22.4 cm2 <=18.0 Report Signatures
[2021-04-09] MEDS: guaiFENesin 12 HR 600 MG TABCR PO ×3 (00:06→20:47)
[2021-04-09] MEDS: THIAMINE HCL 200 MG/2 ML VIAL 100 MG IV PUSH (00:06)
[2021-04-09 01:52] LABS: Anion Gap 7 mmol/L (8-16); Blood Urea Nitrogen 28 mg/dL (9-20); Calcium 7.9 mg/dL (8.4-10.2); Carbon Dioxide 22 mmol/L (22-30); Chloride 101 mmol/L (98-107); Estimated CRCL calculation 55 ml/min; Estimated Glomerular Filt Rate 52; Glucose 132 mg/dL (65-110); Magnesium 1.5 mg/dL (1.6-2.3); Potassium 4.1 mmol/L (3.4-5.0); Sodium 130 mmol/L (137-145)
[2021-04-09 02:04] LABS: Basophils Percent Auto 0.4 % (0.2-1.2); Eosinophils Percent Auto 0.1 % (0-4.4); Hematocrit 32.4 % (42.0-52.0); Hemoglobin 10.6 g/dL (14.0-18.0); Immature Granulocyte Absolute 0.09 K/mm3 (0.00-0.031); Immature Granulocyte Percent A 0.9 % (0-0.5); Lymphocytes Absolute Auto 0.54 K/mm3 (0.9-3.2); Lymphocytes Percent Auto 5.2 % (18.3-44.2); Mean Corpuscular HGB Conc 32.7 g/dl (32-36); Mean Corpuscular Hemoglobin 34.4 pg (26-34); Mean Corpuscular Volume 105.2 fl (80-100); Mean Platelet Volume 9.9 fl (7.4-10.4); Monocytes Absolute Auto 0.6 K/mm3 (0.1-0.6); Monocytes Percent Auto 5.8 % (2.6-8.5); Neutrophils Absolute Auto 9.2 K/mm3 (1.3-6.7); Neutrophils Percent Auto 87.6 % (45.5-73.1); Platelet Count Result 169 k/mm3 (150-375); Red Blood Count 3.08 M/mm3 (4.6-6.20); Red Cell Distribution Width 12.5 % (11.5-14.5); White Blood Count 10.4 K/mm3 (4.5-10.0)
[2021-04-09 03:13] LABS: Iron 20 ug/dL (49-181); Percent Iron Saturation 11 % (20-50)
[2021-04-09] MEDS: MAGNESIUM SULF 4 GM/WATER100ML 4 GM/100 ML BAG IVPB (08:42)
[2021-04-09] MEDS: amLODIPine BESYLATE 5 MG TABLET 10 MG PO (08:42)
[2021-04-09] MEDS: FOLIC ACID 1 MG TABLET PO (08:43)
[2021-04-09] MEDS: cloNIDine HCL 0.2 MG TABLET PO ×2 (08:43→20:46)
[2021-04-09] MEDS: METOPROLOL TARTRATE 50 MG TAB PO ×2 (08:43→20:47)
[2021-04-09] MEDS: THERAPEUTIC MULTIVITAMINS/MINERALS TAB (*BKC) 1 TABLET PO (08:45)
[2021-04-09] MEDS: THIAMINE HCL 100 MG TABLET PO (08:45)
[2021-04-09] MEDS: SODIUM CHLORIDE 0.9% IV 1,000 ML 90 ML IV CONT (08:58)
--- NOTE | 2021-04-09 09:15 | P.PNIM_ITS ---
Progress Note: A&P Assessment and Plan (1) Sepsis: Code(s): A41.9 - Sepsis, unspecified organism Status: Acute Assessment and Plan: * Present on admission, supported by tachycardia, tachypnea, and leukocytosis w ith bandemia * Infectious source: right lower lobe PNA * Lactic acid 1.4 * Blood pressures have been stable * Blood and sputum cultures pending * Cefepime and vancomycin * WBC 16 upon admission, trending down and is 10.4 * trend WBC (2) Right lower lobe pneumonia: Code(s): J18.9 - Pneumonia, unspecified organism Status: Acute Assessment and Plan: * Chest xray shows right lower lobe PNA * Reports SOB * Supplemental oxygen, wean to maintain saturation >90% * Dose of azithromycin and ceftriaxone in the emergency department * Given his recent hospitalization in addition to meeting sepsis criteria, changed to cefepime and vancomycin * Sputum culture pending * blood culture pending * strep pneumonia and Legionella antigens pending * albuterol on board (3) Chronic kidney disease: Code(s): N18.9 - Chronic kidney disease, unspecified Status: Acute Assessment and Plan: * Baseline creatinine is 1.10-1.40 * current creatinine is 1.40 * IV hydration has been given * Trend labs (4) Macrocytic anemia: Code(s): D53.9 - Nutritional anemia, unspecified Status: Acute Assessment and Plan: * MCV 105.2, H/H 10.6/32.4 * Anemia labs B12 465, folate 15.0, iron 20, TIBC 189, % saturation 11, Ferritin 399 * Seems to be anemia of chronic disease, but this could be masked by the ETOH usage * Start iron PO 324mg BID * Trend labs * Labs in the am (5) Hypertension: Code(s): I10 - Essential (primary) hypertension Status: Acute Assessment and Plan: * Current BP 124/70 * Continue home amlodipine 10mg PO daily, cloinidine 0.2mg PO Q12hr, metoprolol 50mg PO Q12hr * Trend BP * Adjust therapy as indicated (6) Alcohol abuse: Code(s): F10.10 - Alcohol abuse, uncomplicated Status: Acute Assessment and Plan: * No reported signs/symptoms of alcohol withdrawal * [facility] protocol * Continue thiamine and folic acid * Librium and lorazepam on board (7) Tobacco abuse: Code(s): Z72.0 - Tobacco use Status: Acute Assessment and Plan: * discussed smoking cessation for 8 minutes * declines the need for nicotine patch at this time (8) Hyponatremia: Code(s): E87.1 - Hypo-osmolality and hyponatremia Status: Acute Assessment and Plan: * Na 127 on admission * Currently 130 with IV hydration * Could be related to underlying pneumonia * Given 1L of fluids * Trend labs (9) Hypomagnesemia: Code(s): E83.42 - Hypomagnesemia Status: Acute Assessment and Plan: * Mg 1.5 * Replace with 4gm IV once * Trend labs * Labs in the am (10) Acute respiratory failure: Code(s): J96.00 - Acute respiratory failure, unspecified whether with hypoxia or hypercapnia Status: Acute Assessment and Plan: * Found to be hypoxic with a saturation of 87 * ABG: pH 7.505, CO2 28.1, O2 53.6, saturation 97.1, respiratory alkalosis * Supplemental oxygen * Wean as indicated (11) Abdominal pain: Code(s): R10.9 - Unspecified abdominal pain Status: Acute Assessment and Plan: * Firm abdomen * RUQ ultrasound ordered * Positive Jacome's sign * Abd/Pel CT from 03/25/21 found masses in the kidneys, fat stranding, possible edema in the RLQ and let abdomen (12) Edema: Code(s): R60.9 - Edema, unspecified Status: Acute Assessment and Plan: * Bilateral feet 2-3+ pitting edema * Firm abdomen, could be ascites * RUQ ultrasound * Echo * Hold off on diuretics for now * andi lucas Time Spent With Patient Time with patient: Greater than 35 minutes Subjective Date/time seen: 04/09/21 0915 Interval history: Date/Time: 04/08/21 16:00 Narrative: This is a pleasant 60-year-old male smoker with history of hypertension, polycystic kidney disease, and alcohol abuse who presented to the emergency department today via EMS from urgent care for evaluation of right- sided chest pain. 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 He has done well up until the past 3 days when he developed right-sided pleuritic chest pain, shortness of breath and cough productive of yellow phlegm. Today he went to urgent care and on arrival he was diaphoretic, tachycardic, tachypneic, and hypoxic with an SpO2 of 87% on room air. He was directed to the emergency department where chest x-ray showed right lower lobe pneumonia and he is being admitted in this setting. At the time my evaluation he is feeling better simply with the oxygen and IV fluid rehydration. He has had some sweats but denies chills and fever. He also denies exertional chest pain, orthopnea, PND, nausea, vomiting, and diarrhea. He denies dysphagia and has no concerns for aspiration. There is no mention in his medical records of concerns for aspiration with his recent hospitalization. No sick contacts or known COVID exposure. Date/Time 04/09/21 0915 Patient was sitting chair when I went to visit. Patient stated that his cough i s better and does build up until he feels in back of this throat he starts to cough and he is good for while. He is coughing Up a brown thick lumpy sputum. he does state that he feels little bit better than yesterday. He also stated that he has noticed that his feet have been swelling a little bit more than normal. He stated that he has been having some wheezes but nothing that is not normal for him. He said he is eating okay and he is urinating okay and fully empties when he urinates. He also stated that he has not been eating or drinking a lot lately which all started when he got sick. Patient also complained of some right upper quadrant abdominal pain. Very tender to palpation abdomen is firm and round. He denies any chest pain, shortness of breath, nausea, vomiting, diarrhea, constipation, weakness, fatigue. Review of Systems Review of Systems: All systems reviewed & are unremarkable except as noted in HPI and below Exam Const: General: cooperative, no acute distress, well developed, alert, awake and ill appearing Nutritional Appearance: well nourished Orientation/consciousness: oriented to person, oriented to place, oriented to time and patient oriented x3 Limitations: no limitations HENMT: Head: normal to inspection Ears: hearing grossly normal bilaterally General nose exam: Normal external nose present Mouth: Yes Normal oral and palatal mucosa present, Yes lip normal and Yes tongue normal Teeth and gingiva: abnormal tooth and associated gingiva and poor dentition Eyes: General: appearance normal, both eyes and all related structures Neck: Neck: normal visual inspection, full ROM, trachea midline and supple Chest: Chest palpation & inspection: normal inspection of the chest Resp: Effort & Inspection: normal respiratory effort and able to speak in complete sentences Auscultation: clear to auscultation bilaterally Cardio: Jugular venous distension: no JVD Rate: regular rate Rhythm: regular rhythm Heart sounds: S1 normal heart sound present and S2 normal heart sound present Peripheral pulses: Peripheral pulses 2+ throughout GI: Inspection: normal to inspection, distended and Pannus present GI Palp: Yes abdominal tenderness, Yes Firmness to palpation present (GI) and Yes Tenderness to palpation present (GI) Auscultation: Hyperactive bowel sounds present Rectal Exam: deferred Skin: General skin exam: normal color and no rashes or lesions noted Lesions: no lesions Rashes: no rashes Trauma: no lacerations or abrasions Wounds: no wounds Hair: normal Nails: normal Neuro: General: oriented to person, oriented to place, oriented to time, patient oriented x3, moves all extremities and Normal light touch and pain sensation Cranial nerves: Yes CN's II-XII intact bilaterally, Yes Equal, round and reactive pupils present, Yes Bilaterally intact EOM present, Yes facial symmetry and Yes Midline tongue present Speech: normal speech Gait exam (Neuro): Normal gait present Extrem: General: normal to inspection Right upper extremity: normal to inspection Left upper extremity: normal to inspection Right lower extremity: normal to inspection Left lower extremity: normal to inspection Psych: Appearance: grossly normal Objective Data Vital Signs Vital Signs: Vital Signs - 24 hr 04/08/21 13:50 04/08/21 15:20 04/08/21 16:41 Temperature 37.4 C Pulse Rate 118 H Respiratory Rate 30 H 18 Blood Pressure 130/75 Pulse Oximetry 96 96 04/08/21 17:17 04/08/21 17:18 04/08/21 18:30 Temperature Pulse Rate 112 H 112 H Respiratory Rate 22 H 24 H Blood Pressure 117/86 118/74 Pulse Oximetry 89 L 94 95 04/08/21 19:00 04/08/21 19:42 04/08/21 22:00 Temperature 36.4 C L 36.7 C 36.8 C Pulse Rate 130 H 116 H Respiratory Rate 24 H 16 Blood Pressure 151/76 H 124/70 Pulse Oximetry 91 95 Intake/Output Intake/Output: Intake & Output 02/07/22 02/08/22 02/09/22 02/10/22 23:59 23:59 23:59 23:59 Intake Total 1250 550 Output Total 500 Balance 1250 50 Meds/Results Medications: Active Medications Generic Name Dose Route Start Last Admin Trade Name Freq PRN Reason Stop Dose Admin Acetaminophen 650 mg 04/08/21 23:32 Acetaminophen 325 Mg Tablet PO Q6H PRN Mild Pain (1-3) or Fever Acetaminophen 650 mg 04/08/21 23:37 Acetaminophen 325 Mg Tablet PO Q6H PRN Mild Pain (1-3) or Fever Albuterol 2 puff 04/08/21 23:29 Albuterol Sulfate (*Sp) Aerosol 1 Puff INHALATION QIDRT PRN Shortness Of Breath Amlodipine Besylate 10 mg 04/09/21 09:00 Amlodipine Besylate 5 Mg Tablet PO DAILY IAIN Chlordiazepoxide HCl 25 mg 04/08/21 23:32 Chlordiazepoxide (*Crx) 25 Mg Capsule PO Q8H PRN Anxiety or withdrawal symptoms Clonidine HCl 0.2 mg 04/09/21 09:00 Clonidine Hcl 0.2 Mg Tablet PO Q12HR IAIN Folic Acid 1 mg 04/09/21 09:00 Folic Acid 1 Mg Tablet PO DAILY IAIN Guaifenesin 600 mg 04/08/21 23:45 04/09/21 00:06 Guaifenesin 12 Hr 600 Mg Tabcr PO 600 mg Q12HR IAIN Administration Cefepime HCl 2 gm in 50 mls @ 100 mls/hr 04/08/21 23:45 04/09/21 00:37 Maxipime 2 Gm/D5w 50 Ml IVPB Infused Q12HR IAIN Infusion Vancomycin HCl 1,500 mg in 500 mls @ 333.333 mls/hr 04/09/21 01:00 04/09/21 02:55 Vancomycin 1,500 Mg/D5w 500 Ml IVPB Infused Q24H IAIN Infusion Lorazepam 1 mg 04/08/21 22:49 Lorazepam Inj (*Crx) 2 Mg/Ml Vial IV PUSH Q3H PRN ALCOHOL WITHDRAWAL SYMPTOMS Metoprolol Tartrate 50 mg 04/09/21 09:00 Metoprolol Tartrate 50 Mg Tab PO Q12HR IAIN Multivitamins/Calcium 1 tablet 04/09/21 09:00 Therapeutic Multivitamins/Minerals Tab (*Bkc) PO QAM IAIN Thiamine HCl 100 mg 04/09/21 09:00 Thiamine Hcl 100 [facility] [place] [facility] Impressions Chest X-Ray 04/08/21 14:45 IMPRESSION: 1. Right lower lobe pneumonia. Labs Labs: Laboratory Results - last 24 hr 04/08/21 04/08/21 04/08/21 14:40 14:40 15:56 WBC 16.0 H RBC 3.52 L Hgb 12.0 L D Hct 36.1 L MCV 102.6 H MCH 34.1 H MCHC 33.2 RDW 12.7 Plt Count 221 D MPV 9.9 Immature Gran % (Auto) Not Reportable Neut % (Auto) Not Reportable Lymph % (Auto) Not Reportable Steele % (Auto) Not Reportable Eos % (Auto) Not Reportable Baso % (Auto) Not Reportable Lymph # (Auto) Not Reportable Steele # (Auto) Not Reportable Eos # (Auto) Not Reportable Baso # (Auto) Not Reportable Abs Immat Gran (auto) Not Reportable Absolute Neuts (auto) Not Reportable Absolute Nucleated RBC Not Reportable Total Counted 100 Neutrophils % (Manual) 81 H Band Neutrophils % 9 H Lymphocytes % (Manual) 6.0 L Monocytes % (Manual) 4 Nucleated RBC % Not Reportable Abs Neuts (Manual) 14.40 H Abs Lymphs (Manual) 0.96 L Abs Monocytes (Manual) 0.64 Platelet Estimate Adequate APTT Puncture Site Left brachial ABG pH 7.505 H* ABG pCO2 28.1 L ABG pO2 53.6 L ABG PO2/FiO2 Ratio 2.55 ABG HCO3 21.7 L ABG O2 Saturation 91.1 L ABG O2 Content 15.8 L ABG Base Excess -0.3 A-a Gradient 62.5 Oxyhemoglobin 87.4 L* Total Hemoglobin 12.9 O2 Delivery Device Room air O2 Liters/Min 0.0 FiO2 21 Sodium 127 L Potassium 4.2 Chloride 99 Carbon Dioxide 22 Anion Gap 6 L BUN 27 H D Creatinine 1.40 H Estim Creat Clear Calc 55 Estimated GFR 52 L Glucose 193 H Lactic Acid Calcium 8.0 L Magnesium Iron TIBC % Saturation Ferritin Total Bilirubin 0.9 AST 56 ALT 25 Alkaline Phosphatase 73 C-Reactive Protein Total Protein 6.0 L Albumin 3.1 L Vitamin B12 Folate TSH (Reflex) SARS-CoV-2 RNA (RT-PCR) 04/08/21 04/08/21 04/08/21 15:57 16:26 16:26 WBC RBC Hgb Hct MCV MCH MCHC RDW Plt Count MPV Immature Gran % (Auto) Neut % (Auto) Lymph % (Auto) Steele % (Auto) Eos % (Auto) Baso % (Auto) Lymph # (Auto) Steele # (Auto) Eos # (Auto) Baso # (Auto) Abs Immat Gran (auto) Absolute Neuts (auto) Absolute Nucleated RBC Total Counted Neutrophils % (Manual) Band Neutrophils % Lymphocytes % (Manual) Monocytes % (Manual) Nucleated RBC % Abs Neuts (Manual) Abs Lymphs (Manual) Abs Monocytes (Manual) Platelet Estimate APTT 29.4 Puncture Site ABG pH ABG pCO2 ABG pO2 ABG PO2/FiO2 Ratio ABG HCO3 ABG O2 Saturation ABG O2 Content ABG Base Excess A-a Gradient Oxyhemoglobin Total Hemoglobin O2 Delivery Device O2 Liters/Min FiO2 Sodium Potassium Chloride Carbon Dioxide Anion Gap BUN Creatinine Estim Creat Clear Calc Estimated GFR Glucose Lactic Acid 1.4 Calcium Magnesium Iron TIBC % Saturation Ferritin Total Bilirubin AST ALT Alkaline Phosphatase C-Reactive Protein Total Protein Albumin Vitamin B12 Folate TSH (Reflex) SARS-CoV-2 RNA (RT-PCR) Negative 04/08/21 04/09/21 04/09/21 16:26 01:27 01:27 WBC RBC Hgb Hct MCV MCH MCHC RDW Plt Count MPV Immature Gran % (Auto) Neut % (Auto) Lymph % (Auto) Steele % (Auto) Eos % (Auto) Baso % (Auto) Lymph # (Auto) Steele # (Auto) Eos # (Auto) Baso # (Auto) Abs Immat Gran (auto) Absolute Neuts (auto) Absolute Nucleated RBC Total Counted Neutrophils % (Manual) Band Neutrophils % Lymphocytes % (Manual) Monocytes % (Manual) Nucleated RBC % Abs Neuts (Manual) Abs Lymphs (Manual) Abs Monocytes (Manual) Platelet Estimate APTT Puncture Site ABG pH ABG pCO2 ABG pO2 ABG PO2/FiO2 Ratio ABG HCO3 ABG O2 Saturation ABG O2 Content ABG Base Excess A-a Gradient Oxyhemoglobin Total Hemoglobin O2 Delivery Device O2 Liters/Min FiO2 Sodium Potassium Chloride Carbon Dioxide Anion Gap BUN Creatinine Estim Creat Clear Calc Estimated GFR Glucose Lactic Acid Calcium Magnesium Iron 20 L TIBC 189 L % Saturation 11 L Ferritin 399.00 H Total Bilirubin AST ALT Alkaline Phosphatase C-Reactive Protein 24.8 H Total Protein Albumin Vitamin B12 465.0 Folate 15.0 TSH (Reflex) 1.440 SARS-CoV-2 RNA (RT-PCR) 04/09/21 04/09/21 01:27 01:27 WBC 10.4 H RBC 3.08 L Hgb 10.6 L Hct 32.4 L MCV 105.2 H MCH 34.4 H MCHC 32.7 RDW 12.5 Plt Count 169 MPV 9.9 Immature Gran % (Auto) 0.9 H Neut % (Auto) 87.6 H Lymph % (Auto) 5.2 L Steele % (Auto) 5.8 Eos % (Auto) 0.1 Baso % (Auto) 0.4 Lymph # (Auto) 0.54 L Steele # (Auto) 0.6 Eos # (Auto) 0.0 Baso # (Auto) 0.0 Abs Immat Gran (auto) 0.09 H Absolute Neuts (auto) 9.2 H Absolute Nucleated RBC 0.0 Total Counted Neutrophils % (Manual) Band Neutrophils % Lymphocytes % (Manual) Monocytes % (Manual) Nucleated RBC % 0.0 Abs Neuts (Manual) Abs Lymphs (Manual) Abs Monocytes (Manual) Platelet Estimate APTT Puncture Site ABG pH ABG pCO2 ABG pO2 ABG PO2/FiO2 Ratio ABG HCO3 ABG O2 Saturation ABG O2 Content ABG Base Excess A-a Gradient Oxyhemoglobin Total Hemoglobin O2 Delivery Device O2 Liters/Min FiO2 Sodium 130 L Potassium 4.1 Chloride 101 Carbon Dioxide 22 Anion Gap 7 L BUN 28 H Creatinine 1.40 H Estim Creat Clear Calc 55 Estimated GFR 52 L Glucose 132 H Lactic Acid Calcium 7.9 L Magnesium 1.5 L Iron TIBC % Saturation Ferritin Total Bilirubin AST ALT Alkaline Phosphatase C-Reactive Protein Total Protein Albumin Vitamin B12 Folate TSH (Reflex) SARS-CoV-2 RNA (RT-PCR) Quality VTE Prophylaxis VTE prophylaxis: pharmacologic ordered
[2021-04-09 09:19] LABS: Troponin I < 0.012 ng/mL (0.000-0.034)
[2021-04-09] MEDS: PANTOPRAZOLE 40 MG TABLET PO ×2 (10:49→20:46)
[2021-04-09 11:25] LABS: Alanine Aminotransferase 23 U/L (4-50); Albumin Level 2.8 g/dL (3.5-5.1); Alkaline Phosphatase 74 U/L (38-126); Aspartate Amino Transferase 35 U/L (17-59); Bilirubin,Total 0.4 mg/dL (0.2-1.3)
[2021-04-09 11:36] LABS: Troponin I < 0.012 ng/mL (0.000-0.034)
[2021-04-09 11:57] LABS: Hepatitis B Surface Antigen Negative (Negative)
[2021-04-09 12:03] LABS: HAV RESULT Negative (Negative); Hepatitis B Core IgM Result Negative (Negative)
[2021-04-09 12:15] LABS: Hepatitis C Virus Antibody Negative (Negative)
--- NOTE | 2021-04-09 14:56 | PC.NURSE ---
On 04/09/21, the student, [Whit Alcocer], provided care and completed [facility] documentation on this patient. I have reviewed the student's documentation and agree with the findings.
[2021-04-10] VITALS (9 sets, daily range): BP systolic 108–137; BP diastolic 61–74; PULSE 68–101; RESP 20–24; TEMP 36.3–37.1; O2SAT 90–96
[2021-04-10 06:01] LABS: Basophils Percent Auto 0.1 % (0.2-1.2); Eosinophils Percent Auto 0.1 % (0-4.4); Hematocrit 33.9 % (42.0-52.0); Hemoglobin 11.2 g/dL (14.0-18.0); Immature Granulocyte Absolute 0.09 K/mm3 (0.00-0.031); Immature Granulocyte Percent A 0.9 % (0-0.5); Lymphocytes Absolute Auto 0.47 K/mm3 (0.9-3.2); Lymphocytes Percent Auto 4.6 % (18.3-44.2); Mean Corpuscular Hemoglobin 33.8 pg (26-34); Mean Corpuscular Volume 102.4 fl (80-100); Mean Platelet Volume 9.7 fl (7.4-10.4); Monocytes Absolute Auto 0.6 K/mm3 (0.1-0.6); Monocytes Percent Auto 5.4 % (2.6-8.5); Neutrophils Absolute Auto 9.1 K/mm3 (1.3-6.7); Neutrophils Percent Auto 88.9 % (45.5-73.1); Platelet Count Result 191 k/mm3 (150-375); Red Blood Count 3.31 M/mm3 (4.6-6.20); Red Cell Distribution Width 12.3 % (11.5-14.5); White Blood Count 10.2 K/mm3 (4.5-10.0)
[2021-04-10 06:16] LABS: Alanine Aminotransferase 30 U/L (4-50); Albumin Level 2.9 g/dL (3.5-5.1); Alkaline Phosphatase 80 U/L (38-126); Anion Gap 8 mmol/L (8-16); Aspartate Amino Transferase 56 U/L (17-59); Bilirubin,Total 0.6 mg/dL (0.2-1.3); Blood Urea Nitrogen 28 mg/dL (9-20); Calcium 8.2 mg/dL (8.4-10.2); Carbon Dioxide 19 mmol/L (22-30); Chloride 101 mmol/L (98-107); Estimated CRCL calculation 51 ml/min; Estimated Glomerular Filt Rate 48; Glucose 142 mg/dL (65-110); Magnesium 1.9 mg/dL (1.6-2.3); Sodium 128 mmol/L (137-145)
[2021-04-10] MEDS: FUROSEMIDE INJ 40 MG/4 ML VIAL 20 MG IV PUSH ×2 (07:18→10:49)
[2021-04-10 08:07] LABS: Appearance Urine Clear (Clear); Bilirubin Urine Negative (Negative); Color Urine Yellow (Yellow); Glucose Urine UA Negative (Negative); Ketones Urine Negative (Negative); Leukocyte Esterase Ur Negative LEU/UL (Negative); Nitrate Urine Negative (Negative); Protein Urine 2+ mg/dL (Negative); Specific Grav Ur 1.025 (1.001-1.035); Urobilinogen Urine 0.2 mg/dL (<2.0); pH Urine 5.5 (5.0-9.0)
[2021-04-10 08:09] LABS: Add Urine Microscopic? YES; Blood Urine Trace-Intact (Negative)
[2021-04-10 08:12] LABS: Bacteria Urine Trace /hpf; Mucus Urine Rare /lpf; RBC Urine 0-2 /hpf (0-2); Squamous Epithelial Cell Urine Rare /hpf (Few); WBC Urine 0-3 /hpf
[2021-04-10 08:16] LABS: Creatinine Urine 130.4 mg/dL; Sodium Urine Random 47 meq/L; Urea Random Urine 878 MG/DL
[2021-04-10] MEDS: guaiFENesin 12 HR 600 MG TABCR PO ×2 (08:27→19:53)
[2021-04-10] MEDS: THIAMINE HCL 100 MG TABLET PO (08:27)
[2021-04-10] MEDS: METOPROLOL TARTRATE 50 MG TAB PO ×2 (08:27→19:54)
[2021-04-10] MEDS: THERAPEUTIC MULTIVITAMINS/MINERALS TAB (*BKC) 1 TABLET PO (08:27)
[2021-04-10] MEDS: cloNIDine HCL 0.2 MG TABLET PO ×2 (08:27→19:54)
[2021-04-10] MEDS: PANTOPRAZOLE 40 MG TABLET PO ×2 (08:27→19:55)
[2021-04-10] MEDS: FOLIC ACID 1 MG TABLET PO (08:27)
[2021-04-10] MEDS: amLODIPine BESYLATE 5 MG TABLET 10 MG PO (08:28)
--- NOTE | 2021-04-10 08:45 | P.PNIM_ITS ---
Progress Note: A&P Assessment and Plan (1) Sepsis: Code(s): A41.9 - Sepsis, unspecified organism Status: Acute Assessment and Plan: * Present on admission, supported by tachycardia, tachypnea, and leukocytosis w ith bandemia * Infectious source: right lower lobe PNA * Lactic acid 1.4 * Blood pressures have been stable * Blood cultures NGTD * Sputum cultures pending * Cefepime and vancomycin * WBC 16 upon admission, trending down and is 10.2 * trend WBC (2) Right lower lobe pneumonia: Code(s): J18.9 - Pneumonia, unspecified organism Status: Acute Assessment and Plan: * Chest xray shows right lower lobe PNA * Reports SOB * Supplemental oxygen, wean to maintain saturation >90% * Dose of azithromycin and ceftriaxone in the emergency department * Given his recent hospitalization in addition to meeting sepsis criteria, changed to cefepime and vancomycin * Sputum culture pending * blood culture NGTD * strep pneumonia and Legionella antigens pending * albuterol on board (3) Chronic kidney disease: Code(s): N18.9 - Chronic kidney disease, unspecified Status: Acute Assessment and Plan: * Baseline creatinine is 1.10-1.40 * current creatinine is 1.50 * urine labs * Could be a component of hypervolemia * Trend labs * Could also be worsening from the vancomycin * Avoid nephrotoxic medications (4) Macrocytic anemia: Code(s): D53.9 - Nutritional anemia, unspecified Status: Acute Assessment and Plan: * MCV 102.4, H/H 11.2/33.9 * Anemia labs B12 465, folate 15.0, iron 20, TIBC 189, % saturation 11, Ferritin 399 * Seems to be anemia of chronic disease, but this could be masked by the ETOH usage * Start iron PO 324mg BID * Trend labs * Labs in the am (5) Hypertension: Code(s): I10 - Essential (primary) hypertension Status: Acute Assessment and Plan: * Current BP 124/70 * Continue home amlodipine 10mg PO daily, cloinidine 0.2mg PO Q12hr, metoprolol 50mg PO Q12hr * Trend BP * Adjust therapy as indicated (6) Alcohol abuse: Code(s): F10.10 - Alcohol abuse, uncomplicated Status: Acute Assessment and Plan: * No reported signs/symptoms of alcohol withdrawal * CIWA protocol * Continue thiamine and folic acid * Librium and lorazepam on board (7) Tobacco abuse: Code(s): Z72.0 - Tobacco use Status: Acute Assessment and Plan: * discussed smoking cessation for 8 minutes * declines the need for nicotine patch at this time (8) Hyponatremia: Code(s): E87.1 - Hypo-osmolality and hyponatremia Status: Acute Assessment and Plan: * Na 127 on admission * Currently 128 with IV hydration * Wonder if this is hyponatremia, hypervolemia * Give 1 dose of IV lasix 20mg * Could be related to underlying pneumonia * Given 1L of fluids * Trend labs (9) Hypomagnesemia: Code(s): E83.42 - Hypomagnesemia Status: Acute Assessment and Plan: * Mg 1.9 today * Seems to be resolved at this time * Replace with 4gm IV once * Trend labs * Labs in the am (10) Acute respiratory failure: Code(s): J96.00 - Acute respiratory failure, unspecified whether with hypoxia or hypercapnia Status: Acute Assessment and Plan: * Found to be hypoxic with a saturation of 87 * ABG: pH 7.505, CO2 28.1, O2 53.6, saturation 97.1, respiratory alkalosis * Supplemental oxygen, looks like it has been turned up to 4LNC * Will check a D.Dimer and venous dopplers as he has swelling bilaterally, and increase in oxygen demand. He is also tachycardiac could be a PE * Chest xray is ordered and pending * Lasix given * Wean as indicated (11) Abdominal pain: Code(s): R10.9 - Unspecified abdominal pain Status: Acute Assessment and Plan: * Resolved at this time * Firm abdomen * RUQ ultrasound showed dilated bile duct, no stones, many hepatic and renal cysts * Positive Jacome's sign * Abd/Pel CT from 03/25/21 found masses in the kidneys, fat stranding, possible edema in the RLQ and let abdomen (12) Acute exacerbation of congestive heart failure: Code(s): I50.9 - Heart failure, unspecified Status: Acute Assessment and Plan: * Would say he is in an acute exacerbation of diastolic heart failure * BNP ordered * lungs are crackly and cough sounds wet * increase in oxygen demand abruptly * Bilateral feet 2-3+ pitting edema * RUQ ultrasound did not show ascities * Echo EF of 65-70% with grade 1 diastolic dysfunction * give one dose of lasix 40mg IV * andi lucas * Significant weight gain of about 6kg * Continue daily weights * trend output with Strict I&Os Time Spent With Patient Time with patient: Greater than 35 minutes Subjective Date/time seen: 04/10/21 0845 Interval history: Date/Time: 04/08/21 16:00 Narrative: This is a pleasant 60-year-old male smoker with history of hypertension, polycystic kidney disease, and alcohol abuse who presented to the emergency department today via EMS from urgent care for evaluation of right- sided chest pain. 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 He has done well up until the past 3 days when he developed right-sided pleuritic chest pain, shortness of breath and cough productive of yellow phlegm. Today he went to urgent care and on arrival he was diaphoretic, tachycardic, tachypneic, and hypoxic with an SpO2 of 87% on room air. He was directed to the emergency department where chest x-ray showed right lower lobe pneumonia and he is being admitted in this setting. At the time my evaluation he is feeling better simply with the oxygen and IV fluid rehydration. He has had some sweats but denies chills and fever. He also denies exertional chest pain, orthopnea, PND, nausea, vomiting, and diarrhea. He denies dysphagia and has no concerns for aspiration. There is no mention in his medical records of concerns for aspiration with his recent hospitalization. No sick contacts or known COVID exposure. Date/Time 04/09/21 0915 Patient was sitting chair when I went to visit. Patient stated that his cough is better and does build up until he feels in back of this throat he starts to cough and he is good for while. He is coughing Up a brown thick lumpy sputum. he does state that he feels little bit better than yesterday. He also stated that he has noticed that his feet have been swelling a little bit more than normal. He stated that he has been having some wheezes but nothing that is not normal for him. He said he is eating okay and he is urinating okay and fully empties when he urinates. He also stated that he has not been eating or drinking a lot lately which all started when he got sick. Patient also complained of some right upper quadrant abdominal pain. Very tender to palpation abdomen is firm and round. He denies any chest pain, shortness of breath, nausea, vomiting, diarrhea, constipation, weakness, fatigue. Date/Time 04/10/21 1453 Patient stated that he is feeling okay today. He did say that he is having more shortness of breath however he did say he feels a little better as he can lay down even though he is at a very high Fowlers. patient did sound very crackly throughout. Left foot is also swollen more than the right foot. Patient did state that his foot looks better on the right. He denies any abdominal pain today and nursing reported a bowel movement today as well. Patient does seem a little anxious at times. He stated that he is eating fine. Patient also stated before today he would have chest pain when he laid down. Patient stated that he would experience right-sided chest pain that would radiate to the middle of his back. He denies having any issues with that today or yesterday but did say he had some the day before. Patient also denies any nausea, vomiting, diarrhea, constipation, numbness fatigue. Patient did say that he is weak. Review of Systems Review of Systems: All systems reviewed & are unremarkable except as noted in HPI and below Exam Const: General: cooperative, no acute distress, well developed, alert, awake and ill appearing Nutritional Appearance: well nourished Orientation/consciousness: oriented to person, oriented to place, oriented to time and patient oriented x3 Limitations: no limitations HENMT: Head: normal to inspection Ears: hearing grossly normal bilaterally General nose exam: Normal external nose present Mouth: Yes Normal oral and palatal mucosa present, Yes lip normal and Yes tongue normal Teeth and gingiva: abnormal tooth and associated gingiva and poor dentition Eyes: General: appearance normal, both eyes and all related structures Pupils: Equal, round and reactive pupils present Neck: Neck: normal visual inspection, full ROM, trachea midline and supple Chest: Chest palpation & inspection: normal inspection of the chest Resp: Effort & Inspection: normal respiratory effort and able to speak in complete sentences Auscultation: clear to auscultation bilaterally Cardio: Jugular venous distension: no JVD Rate: regular rate Rhythm: regular rhythm Heart sounds: S1 normal heart sound present and S2 normal heart sound present Peripheral pulses: Peripheral pulses 2+ throughout GI: Inspection: normal to inspection, distended and Pannus present Auscultation: Hyperactive bowel sounds present Rectal Exam: deferred Skin: General skin exam: normal color and no rashes or lesions noted Lesions: no lesions Rashes: no rashes Trauma: no lacerations or abrasions Wounds: no wounds Hair: normal Nails: normal Neuro: General: oriented to person, oriented to place, oriented to time, patient oriented x3, moves all extremities and Normal light touch and pain sensation Cranial nerves: Yes CN's II-XII intact bilaterally, Yes Equal, round and reactive pupils present, Yes Bilaterally intact EOM present, Yes facial symmetry and Yes Midline tongue present Speech: normal speech Gait exam (Neuro): Normal gait present Extrem: General: normal to inspection, full ROM and capillary refill normal Right upper extremity: normal to inspection, full ROM and normal capillary refill Left upper extremity: normal to inspection, full ROM and normal capillary refill Right lower extremity: normal to inspection, full ROM, normal capillary refill, ankle Details: swelling and foot Details: edema Left lower extremity: normal to inspection, full ROM, normal capillary refill, ankle Details: swelling and foot Details: edema Psych: Appearance: grossly normal Objective Data Vital Signs Vital Signs: Vital Signs - 24 hr 04/09/21 07:59 04/09/21 08:40 04/09/21 08:43 Temperature Pulse Rate 105 H 100 Respiratory Rate Blood Pressure 137/71 Pulse Oximetry 98 98 04/09/21 09:30 04/09/21 14:02 04/09/21 19:30 Temperature 36.8 C 36.6 C Pulse Rate 93 104 H Respiratory Rate 18 22 H Blood Pressure 118/63 158/72 H Pulse Oximetry 98 97 92 04/09/21 20:47 04/09/21 20:52 04/10/21 00:13 Temperature Pulse Rate 104 H 94 Respiratory Rate Blood Pressure Pulse Oximetry 91 96 04/10/21 05:01 Temperature 36.6 C Pulse Rate 92 Respiratory Rate 20 Blood Pressure 125/74 Pulse Oximetry 95 Intake/Output Intake/Output: Intake & Output 04/07/21 04/08/21 04/09/21 04/10/21 23:59 23:59 23:59 23:59 Intake Total 1250 3310 390 Output Total 500 Balance 1250 2810 390 Meds/Results Medications: Active Medications Generic Name Dose Route Start Last Admin Trade Name Freq PRN Reason Stop Dose Admin Acetaminophen 650 mg 04/08/21 23:32 Acetaminophen 325 Mg Tablet PO Q6H PRN Mild Pain (1-3) or Fever Acetaminophen 650 mg 04/08/21 23:37 Acetaminophen 325 Mg Tablet PO Q6H PRN Mild Pain (1-3) or Fever Albuterol 2 puff 04/08/21 23:29 Albuterol Sulfate (*Sp) Aerosol 1 Puff INHALATION QIDRT PRN Shortness Of Breath Amlodipine Besylate 10 mg 04/09/21 09:00 04/09/21 08:42 Amlodipine Besylate 5 Mg Tablet PO 10 mg DAILY IAIN Administration Chlordiazepoxide HCl 25 mg 04/08/21 23:32 Chlordiazepoxide (*Crx) 25 Mg Capsule PO Q8H PRN Anxiety or withdrawal symptoms Clonidine HCl 0.2 mg 04/09/21 09:00 04/09/21 20:46 Clonidine Hcl 0.2 Mg Tablet PO 0.2 mg Q12HR IAIN Administration Folic Acid 1 mg 04/09/21 09:00 04/09/21 08:43 Folic Acid 1 Mg Tablet PO 1 mg DAILY IAIN Administration Guaifenesin 600 mg 04/08/21 23:45 04/09/21 20:47 Guaifenesin 12 Hr 600 Mg Tabcr PO 600 mg Q12HR IAIN Administration Cefepime HCl 2 gm in 50 mls @ 100 mls/hr 04/08/21 23:45 04/09/21 21:16 Maxipime 2 Gm/D5w 50 Ml IVPB Infused Q12HR IAIN Infusion Vancomycin HCl 1,500 mg in 500 mls @ 333.333 mls/hr 04/09/21 01:00 04/10/21 00:57 Vancomycin 1,500 Mg/D5w 500 Ml IVPB 250 mls/hr Q24H IAIN Administration Lorazepam 1 mg 04/08/21 22:49 Lorazepam Inj (*Crx) 2 Mg/Ml Vial IV PUSH Q3H PRN ALCOHOL WITHDRAWAL SYMPTOMS Metoprolol Tartrate 50 mg 04/09/21 09:00 04/09/21 20:47 Metoprolol Tartrate 50 Mg Tab PO 50 mg Q12HR IAIN Administration Multivitamins/Calcium 1 tablet 04/09/21 09:00 04/09/21 08:45 Therapeutic Multivitamins/Minerals Tab (*Bkc) PO 1 tablet QAM IAIN Administration Pantoprazole Sodium 40 mg 04/09/21 10:25 04/09/21 20:46 Pantoprazole 40 Mg Tablet PO 40 mg Q12HR IAIN Administration Perflutren Lipid Microsphere 0 ml 04/09/21 10:16 Perflutren Lipid Microspheres 1.5 Ml Vial Diluted To 10 Ml Total Volume IV PUSH ONCE PRN adequate visualization Protocol Thiamine HCl 100 mg 04/09/21 09:00 04/09/21 08:45 Thiamine Hcl 100 Mg Tablet PO 100 mg QAM IAIN Administration Radiology Results: ITS Impressions Chest X-Ray 04/08/21 14:45 IMPRESSION: 1. Right lower lobe pneumonia. Abdomen Ultrasound 04/09/21 14:43 IMPRESSION: 1. Nonspecific mild intra and extra hepatic biliary ductal dilation with normal decompressed gallbladder and without evident cholelithiasis. Correlate with liver function tests. 2. Numerous hepatic and right renal cysts consistent with autosomal dominant polycystic kidney disease. Labs Labs: Laboratory Results - last 24 hr 04/09/21 04/09/21 04/09/21 08:43 10:39 10:39 Sodium Potassium Chloride Carbon Dioxide Anion Gap BUN Creatinine Estim Creat Clear Calc Estimated GFR Glucose Calcium Magnesium Total Bilirubin 0.4 Direct Bilirubin 0.0 AST 35 ALT 23 Alkaline Phosphatase 74 Troponin I < 0.012 < 0.012 Total Protein 6.0 L Albumin 2.8 L Hepatitis A IgM Ab Hep Bs Antigen Hep B Core IgM Ab Hepatitis C Ab Screen 04/09/21 04/10/21 10:39 05:35 Sodium 128 L Potassium 4.0 Chloride 101 Carbon Dioxide 19 L Anion Gap 8 BUN 28 H Creatinine 1.50 H Estim Creat Clear Calc 51 Estimated GFR 48 L Glucose 142 H Calcium 8.2 L Magnesium 1.9 Total Bilirubin 0.6 Direct Bilirubin AST 56 ALT 30 Alkaline Phosphatase 80 Troponin I Total Protein 6.0 L Albumin 2.9 L Hepatitis A IgM Ab Negative Hep Bs Antigen Negative Hep B Core IgM Ab Negative Hepatitis C Ab Screen Negative Quality VTE Prophylaxis VTE prophylaxis: pharmacologic ordered
[2021-04-10 10:43] LABS: D Dimer 3.53 ug/mL (<0.48)
[2021-04-10 10:47] LABS: NT Pro B Type Natriuretic Pept 664 pg/mL (5-100)
[2021-04-10] MEDS: ENOXAPARIN 40 MG/0.4 ML SYRINGE SUB-Q (10:49)
[2021-04-10] MEDS: ALBUTEROL SULFATE (*SP) AEROSOL 1 PUFF 2 PUFF INHALATION (21:29)
[2021-04-11] VITALS (7 sets, daily range): BP systolic 124–137; BP diastolic 60–70; PULSE 88–101; RESP 18–24; TEMP 36.2–37; O2SAT 91–100
[2021-04-11 05:51] LABS: Basophils Percent Auto 0.2 % (0.2-1.2); Eosinophils Percent Auto 0.3 % (0-4.4); Hematocrit 34.2 % (42.0-52.0); Hemoglobin 11.6 g/dL (14.0-18.0); Immature Granulocyte Absolute 0.14 K/mm3 (0.00-0.031); Immature Granulocyte Percent A 1.4 % (0-0.5); Lymphocytes Absolute Auto 0.67 K/mm3 (0.9-3.2); Lymphocytes Percent Auto 6.7 % (18.3-44.2); Mean Corpuscular HGB Conc 33.9 g/dl (32-36); Mean Corpuscular Hemoglobin 34.1 pg (26-34); Mean Corpuscular Volume 100.6 fl (80-100); Mean Platelet Volume 9.5 fl (7.4-10.4); Monocytes Absolute Auto 0.7 K/mm3 (0.1-0.6); Monocytes Percent Auto 6.7 % (2.6-8.5); Neutrophils Absolute Auto 8.5 K/mm3 (1.3-6.7); Neutrophils Percent Auto 84.7 % (45.5-73.1); Platelet Count Result 244 k/mm3 (150-375); Red Cell Distribution Width 12.2 % (11.5-14.5); White Blood Count 10.1 K/mm3 (4.5-10.0)
[2021-04-11 05:58] LABS: Alanine Aminotransferase 38 U/L (4-50); Albumin Level 2.7 g/dL (3.5-5.1); Alkaline Phosphatase 94 U/L (38-126); Anion Gap 4 mmol/L (8-16); Aspartate Amino Transferase 60 U/L (17-59); Bilirubin,Total 0.6 mg/dL (0.2-1.3); Blood Urea Nitrogen 25 mg/dL (9-20); Carbon Dioxide 23 mmol/L (22-30); Chloride 98 mmol/L (98-107); Estimated CRCL calculation 51 ml/min; Estimated Glomerular Filt Rate 48; Glucose 169 mg/dL (65-110); Magnesium 1.6 mg/dL (1.6-2.3); Potassium 3.9 mmol/L (3.4-5.0); Sodium 125 mmol/L (137-145)
[2021-04-11] MEDS: cloNIDine HCL 0.2 MG TABLET PO ×2 (08:35→20:06)
[2021-04-11] MEDS: FOLIC ACID 1 MG TABLET PO (08:35)
[2021-04-11] MEDS: guaiFENesin 12 HR 600 MG TABCR PO ×2 (08:35→20:06)
[2021-04-11] MEDS: THIAMINE HCL 100 MG TABLET PO (08:35)
[2021-04-11] MEDS: amLODIPine BESYLATE 5 MG TABLET 10 MG PO (08:35)
[2021-04-11] MEDS: THERAPEUTIC MULTIVITAMINS/MINERALS TAB (*BKC) 1 TABLET PO (08:35)
[2021-04-11] MEDS: METOPROLOL TARTRATE 50 MG TAB PO ×2 (08:35→20:06)
[2021-04-11] MEDS: ENOXAPARIN 40 MG/0.4 ML SYRINGE SUB-Q (08:35)
[2021-04-11] MEDS: PANTOPRAZOLE 40 MG TABLET PO ×2 (08:35→20:07)
[2021-04-11] MEDS: MAGNESIUM SULF 4 GM/WATER100ML 4 GM/100 ML BAG IVPB (10:13)
--- NOTE | 2021-04-11 11:15 | P.PNIM_ITS ---
Progress Note: A&P Assessment and Plan (1) Sepsis: Code(s): A41.9 - Sepsis, unspecified organism Status: Acute Assessment and Plan: * Present on admission, supported by tachycardia, tachypnea, and leukocytosis w ith bandemia * Infectious source: right lower lobe PNA * Lactic acid 1.4 * Blood pressures have been stable * Blood cultures NGTD * Sputum cultures pending * Cefepime and vancomycin * WBC 16 upon admission, trending down and is 10.2 * trend WBC (2) Right lower lobe pneumonia: Code(s): J18.9 - Pneumonia, unspecified organism Status: Acute Assessment and Plan: * Chest xray shows right lower lobe PNA * Reports SOB * Supplemental oxygen, wean to maintain saturation >90% * Dose of azithromycin and ceftriaxone in the emergency department * Given his recent hospitalization in addition to meeting sepsis criteria, changed to cefepime and vancomycin * Sputum culture pending * blood culture NGTD * strep pneumonia and Legionella antigens pending * albuterol on board (3) Chronic kidney disease: Code(s): N18.9 - Chronic kidney disease, unspecified Status: Acute Assessment and Plan: * Baseline creatinine is 1.10-1.40 * current creatinine is 1.50 * urine labs * Could be a component of hypervolemia * Trend labs * Could also be worsening from the vancomycin * Avoid nephrotoxic medications (4) Macrocytic anemia: Code(s): D53.9 - Nutritional anemia, unspecified Status: Acute Assessment and Plan: * MCV 100.6, H/H 11.6/34.2 * Anemia labs B12 465, folate 15.0, iron 20, TIBC 189, % saturation 11, Ferritin 399 * Seems to be anemia of chronic disease, but this could be masked by the ETOH usage * Start iron PO 324mg BID * Trend labs * Labs in the am (5) Hypertension: Code(s): I10 - Essential (primary) hypertension Status: Acute Assessment and Plan: * Current BP 136/60 * Continue home amlodipine 10mg PO daily, cloinidine 0.2mg PO Q12hr, metoprolol 50mg PO Q12hr * Trend BP * Adjust therapy as indicated (6) Alcohol abuse: Code(s): F10.10 - Alcohol abuse, uncomplicated Status: Acute Assessment and Plan: * No reported signs/symptoms of alcohol withdrawal * CIWA protocol * Continue thiamine and folic acid * Librium and lorazepam on board (7) Tobacco abuse: Code(s): Z72.0 - Tobacco use Status: Acute Assessment and Plan: * discussed smoking cessation for 8 minutes * declines the need for nicotine patch at this time (8) Hyponatremia: Code(s): E87.1 - Hypo-osmolality and hyponatremia Status: Acute Assessment and Plan: * Na 127 on admission * Currently 125 with IV hydration * Wonder if this is hyponatremia, hypervolemia * Give 1 dose of IV lasix 40mg * Could be related to underlying pneumonia * IV fluid NS at 100ml/hr * Trend labs * CT Abd/Pel- found right sided pleural effusion loculated (9) Hypomagnesemia: Code(s): E83.42 - Hypomagnesemia Status: Acute Assessment and Plan: * Mg 1.6 today * Seems to be resolved at this time * Replace with 4gm IV once * Trend labs * Labs in the am (10) Acute respiratory failure: Code(s): J96.00 - Acute respiratory failure, unspecified whether with hypoxia or hypercapnia Status: Acute Assessment and Plan: * Found to be hypoxic with a saturation of 87 * ABG: pH 7.505, CO2 28.1, O2 53.6, saturation 97.1, respiratory alkalosis * Supplemental oxygen, looks like it has been turned up to 5LNC * Will check a D.Dimer and venous dopplers as he has swelling bilaterally, and increase in oxygen demand. He is also tachycardiac could be a PE * D.Dimer elevated at 3.53 * Venous Doppler negative for a DVT * Chest xray Progression of pleural effusions and basilar edema. * Lasix given x 1 * Wean as indicated (11) Abdominal pain: Code(s): R10.9 - Unspecified abdominal pain Status: Acute Assessment and Plan: * Resolved at this time * Firm abdomen * RUQ ultrasound showed dilated bile duct, no stones, many hepatic and renal cysts * Positive Jcaome's sign * Abd/Pel CT from 03/25/21 found masses in the kidneys, fat stranding, possible edema in the RLQ and let abdomen (12) Acute exacerbation of congestive heart failure: Code(s): I50.9 - Heart failure, unspecified Status: Acute Assessment and Plan: * Would say he is in an acute exacerbation of diastolic heart failure * BNP 664 * Chest xray shows Progression of pleural effusions and basilar edema. * lungs are crackly and cough sounds wet * increase in oxygen demand abruptly * Bilateral feet 2-3+ pitting edema * RUQ ultrasound did not show ascities * Echo EF of 65-70% with grade 1 diastolic dysfunction * give one dose of lasix 40mg IV * andi hose * Significant weight gain of about 6kg * Continue daily weights * trend output with Strict I&Os (13) Pleural effusion: Code(s): J90 - Pleural effusion, not elsewhere classified Status: Acute Assessment and Plan: * CTA showed moderate size loculated pleural effusion * Paracentesis has been ordered * Could be an empyema * Will get testing Time Spent With Patient Time with patient: Greater than 35 minutes Subjective Date/time seen: 04/11/21 1115 Interval history: Date/Time: 04/08/21 16:00 Narrative: This is a pleasant 60-year-old male smoker with history of hypertension, polycystic kidney disease, and alcohol abuse who presented to the emergency department today via EMS from urgent care for evaluation of right- sided chest pain. 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 He has done well up until the past 3 days when he developed right-sided pleuritic chest pain, shortness of breath and cough productive of yellow phlegm. Today he went to urgent care and on arrival he was diaphoretic, tachycardic, tachypneic, and hypoxic with an SpO2 of 87% on room air. He was directed to the emergency department where chest x-ray showed right lower lobe pneumonia and he is being admitted in this setting. At the time my evaluation he is feeling better simply with the oxygen and IV fluid rehydration. He has had some sweats but denies chills and fever. He also denies exertional chest pain, orthopnea, PND, nausea, vomiting, and diarrhea. He denies dysphagia and has no concerns for aspiration. There is no mention in his medical records of concerns for aspiration with his recent hospitalization. No sick contacts or known COVID exposure. Date/Time 04/09/21 0923 Patient was sitting chair when I went to visit. Patient stated that his cough is better and does build up until he feels in back of this throat he starts to cough and he is good for while. He is coughing Up a brown thick lumpy sputum. he does state that he feels little bit better than yesterday. He also stated that he has noticed that his feet have been swelling a little bit more than normal. He stated that he has been having some wheezes but nothing that is not normal for him. He said he is eating okay and he is urinating okay and fully empties when he urinates. He also stated that he has not been eating or drinking a lot lately which all started when he got sick. Patient also complained of some right upper quadrant abdominal pain. Very tender to palpat ion abdomen is firm and round. He denies any chest pain, shortness of breath, nausea, vomiting, diarrhea, constipation, weakness, fatigue. Date/Time 04/10/21 0845 Patient stated that he is feeling okay today. He did say that he is having more shortness of breath however he did say he feels a little better as he can lay down even though he is at a very high Fowlers. patient did sound very crackly throughout. Left foot is also swollen more than the right foot. Patient did state that his foot looks better on the right. He denies any abdominal pain today and nursing reported a bowel movement today as well. Patient does seem a little anxious at times. He stated that he is eating fine. Patient also stated before today he would have chest pain when he laid down. Patient stated that he would experience right-sided chest pain that would radiate to the middle of his back. He denies having any issues with that today or yesterday but did say he had some the day before. Patient also denies any nausea, vomiting, diarrhea, constipation, numbness fatigue. Patient did say that he is weak. Date/Time 04/11/21 1115 patient was sleeping when I walked in to examine him. Patient stated that he was doing okay however he is still pretty short of breath. He denies any chest pain, abdominal pain, nausea, vomiting, diarrhea, constipation. I did explain patient and updated him with the plan of care at this time. D-dimer was elevated CTA did show a moderate size right loculated pleural effusion. Paracentesis has been ordered. Review of Systems Review of Systems: All systems reviewed & are unremarkable except as noted in HPI and below Exam Const: General: cooperative, no acute distress, well developed, alert and awake Nutritional Appearance: well nourished Orientation/consciousness: oriented to person, oriented to place, oriented to time and patient oriented x3 Limitations: no limitations HENMT: Head: normal to inspection Ears: hearing grossly normal bilaterally General nose exam: Normal external nose present Mouth: Yes Normal oral and palatal mucosa present, Yes lip normal and Yes tongue normal Teeth and gingiva: abnormal tooth and associated gingiva and poor dentition Eyes: General: appearance normal, both eyes and all related structures Pupils: Equal, round and reactive pupils present Neck: Neck: normal visual inspection, full ROM, trachea midline and supple Chest: Chest palpation & inspection: normal inspection of the chest Resp: Effort & Inspection: normal respiratory effort and able to speak in complete sentences Auscultation: clear to auscultation bilaterally Cardio: Jugular venous distension: no JVD Rate: regular rate Rhythm: re gular rhythm Heart sounds: S1 normal heart sound present and S2 normal heart sound present Peripheral pulses: Peripheral pulses 2+ throughout GI: Inspection: normal to inspection, distended and Pannus present Auscultation: Hyperactive bowel sounds present Rectal Exam: deferred Skin: General skin exam: normal color and no rashes or lesions noted Lesions: no lesions Rashes: no rashes Trauma: no lacerations or abrasions Wounds: no wounds Hair: normal Nails: normal Neuro: General: oriented to person, oriented to place, oriented to time, patient oriented x3, moves all extremities and Normal light touch and pain sensation Cranial nerves: Yes CN's II-XII intact bilaterally, Yes Equal, round and reactive pupils present, Yes Bilaterally intact EOM present, Yes facial symmetry and Yes Midline tongue present Speech: normal speech Gait exam (Neuro): Normal gait present Extrem: General: normal to inspection, full ROM and capillary refill normal Right upper extremity: normal to inspection, full ROM and normal capillary refill Left upper extremity: normal to inspection, full ROM and normal capillary refill Right lower extremity: normal to inspection, full ROM, normal capillary refill, ankle Details: swelling and foot Details: edema Left lower extremity: normal to inspection, full ROM, normal capillary refill, ankle Details: swelling and foot Details: edema Psych: Appearance: grossly normal Objective Data Vital Signs Vital Signs: Vital Signs - 24 hr 04/10/21 08:00 04/10/21 08:27 04/10/21 14:00 Temperature 36.3 C L Pulse Rate 101 H 85 Respiratory Rate 22 H Blood Pressure 108/70 Pulse Oximetry 90 96 04/10/21 19:54 04/10/21 20:00 04/10/21 21:25 Temperature 37.1 C Pulse Rate 68 86 91 Respiratory Rate 24 H Blood Pressure 137/61 Pulse Oximetry 92 96 04/10/21 21:29 04/11/21 05:05 Temperature 37.0 C Pulse Rate 85 88 Respiratory Rate 22 H Blood Pressure 137/65 Pulse Oximetry 91 Intake/Output Intake/Output: Intake & Output 04/08/21 04/09/21 04/10/21 04/11/21 23:59 23:59 23:59 23:59 Intake Total 1250 3310 2030 740 Output Total 500 500 Balance 1250 2810 1530 740 Meds/Results Medications: Active Medications Generic Name Dose Route Start Last Admin Trade Name Freq PRN Reason Stop Dose Admin Acetaminophen 650 mg 04/08/21 23:37 Acetaminophen 325 Mg Tablet PO Q6H PRN Mild Pain (1-3) or Fever Albuterol 2 puff 04/08/21 23:29 04/10/21 21:29 Albuterol Sulfate (*Sp) Aerosol 1 Puff INHALATION 2 puff QIDRT PRN Administration Shortness Of Breath Amlodipine Besylate 10 mg 04/09/21 09:00 04/10/21 08:28 Amlodipine Besylate 5 Mg Tablet PO 10 mg DAILY IAIN Administration Chlordiazepoxide HCl 25 mg 04/08/21 23:32 Chlordiazepoxide (*Crx) 25 Mg Capsule PO Q8H PRN Anxiety or withdrawal symptoms Clonidine HCl 0.2 mg 04/09/21 09:00 04/10/21 19:54 Clonidine Hcl 0.2 Mg Tablet PO 0.2 mg Q12HR IAIN Administration Enoxaparin Sodium 40 mg 04/10/21 09:40 04/10/21 10:49 Enoxaparin 40 Mg/0.4 Ml Syringe SUB-Q 40 mg DAILY IAIN Administration Folic Acid 1 mg 04/09/21 09:00 04/10/21 08:27 Folic Acid 1 Mg Tablet PO 1 mg DAILY IAIN Administration Guaifenesin 600 mg 04/08/21 23:45 04/10/21 19:53 Guaifenesin 12 Hr 600 Mg Tabcr PO 600 mg Q12HR IAIN Administration Cefepime HCl 2 gm in 50 mls @ 100 mls/hr 04/08/21 23:45 04/10/21 20:22 Maxipime 2 Gm/D5w 50 Ml IVPB Infused Q12HR IAIN Infusion Vancomycin HCl 1,500 mg in 500 mls @ 333.333 mls/hr 04/09/21 01:00 04/11/21 02:54 Vancomycin 1,500 Mg/D5w 500 Ml IVPB Infused Q24H IAIN Infusion Magnesium Sulfate 4 gm in 100 mls @ 100 mls/hr 04/11/21 07:47 Magnesium Sulf 4 Gm/[id number] IVPB 04/11/21 08:46 ONCE ONE Lorazepam 1 mg 04/08/21 22:49 Lorazepam Inj (*Crx) 2 Mg/Ml Vial IV PUSH Q3H PRN ALCOHOL WITHDRAWAL SYMPTOMS Metoprolol Tartrate 50 mg 04/09/21 09:00 04/10/21 19:54 Metoprolol Tartrate 50 Mg Tab PO 50 mg Q12HR IAIN Administration Multivitamins/Calcium 1 tablet 04/09/21 09:00 04/10/21 08:27 Therapeutic Multivitamins/Minerals Tab (*Bkc) PO 1 tablet QAM IAIN Administration Pantoprazole Sodium 40 mg 04/09/21 10:25 04/10/21 19:55 Pantoprazole 40 Mg Tablet PO 40 mg Q12HR IAIN Administration Perflutren Lipid Microsphere 0 ml 04/09/21 10:16 Perflutren Lipid Microspheres 1.5 Ml Vial Diluted To 10 Ml Total Volume IV PUSH ONCE PRN adequate visualization Protocol Thiamine HCl 100 mg 04/09/21 09:00 04/10/21 08:27 Thiamine Hcl 100 Mg Tablet PO 100 mg QAM IAIN Administration Radiology Results: ITS Impressions Abdomen Ultrasound 04/09/21 14:43 IMPRESSION: 1. Nonspecific mild intra and extra hepatic biliary ductal dilation with normal decompressed gallbladder and without evident cholelithiasis. Correlate with liver function tests. 2. Numerous hepatic and right renal cysts consistent with autosomal dominant polycystic kidney disease. Chest X-Ray 04/10/21 10:58 IMPRESSION: 1. Progression of pleural effusions and basilar edema. Venous Doppler Study 04/10/21 12:35 IMPRESSION: 1. No lower extremity deep venous thrombosis bilaterally. Labs Labs: Laboratory Results - last 24 hr 04/10/21 04/10/21 04/10/21 07:43 07:47 10:18 WBC RBC Hgb Hct MCV MCH MCHC RDW Plt Count MPV Immature Gran % (Auto) Neut % (Auto) Lymph % (Auto) [place] % (Auto) Eos % (Auto) Baso % (Auto) Lymph # (Auto) [place] # (Auto) Eos # (Auto) Baso # (Auto) Abs Immat Gran (auto) Absolute Neuts (auto) Absolute Nucleated RBC Nucleated RBC % D-Dimer 3.53 H Sodium Potassium Chloride Carbon Dioxide Anion Gap BUN Creatinine Estim Creat Clear Calc Estimated GFR Glucose Calcium Magnesium Total Bilirubin AST ALT Alkaline Phosphatase NT-Pro-B Natriuret Pep Total Protein Albumin Urine Color Yellow Urine Appearance Clear Urine pH 5.5 Ur Specific [place] 1.025 Urine Protein 2+ H Urine Glucose (UA) Negative Urine Ketones Negative Ur Blood (Man) Trace-intact Urine Nitrate Negative Urine Bilirubin Negative Urine Urobilinogen 0.2 Leukocyte Esterase Rfl Negative Urine RBC 0-2 Urine WBC 0-3 Ur Squamous Epith Cells Rare Urine Bacteria Trace Urine Mucus Rare Ur Random Sodium 47 Ur Random Urea 878 Urine Creatinine 130.4 04/10/21 04/11/21 04/11/21 10:18 05:13 05:13 WBC 10.1 H RBC 3.40 L Hgb 11.6 L Hct 34.2 L MCV 100.6 H MCH 34.1 H MCHC 33.9 RDW 12.2 Plt Count 244 MPV 9.5 Immature Gran % (Auto) 1.4 H Neut % (Auto) 84.7 H Lymph % (Auto) 6.7 L [place] % (Auto) 6.7 Eos % (Auto) 0.3 Baso % (Auto) 0.2 Lymph # (Auto) 0.67 L [place] # (Auto) 0.7 H Eos # (Auto) 0.0 Baso # (Auto) 0.0 Abs Immat Gran (auto) 0.14 H Absolute Neuts (auto) 8.5 H Absolute Nucleated RBC 0.0 Nucleated RBC % 0.0 D-Dimer Sodium 125 L Potassium 3.9 Chloride 98 Carbon Dioxide 23 Anion Gap 4 L BUN 25 H Creatinine 1.50 H Estim Creat Clear Calc 51 Estimated GFR 48 L Glucose 169 H Calcium 8.0 L Magnesium 1.6 Total Bilirubin 0.6 AST 60 H ALT 38 Alkaline Phosphatase 94 NT-Pro-B Natriuret Pep 664 H Total Protein 6.0 L Albumin 2.7 L Urine Color Urine Appearance Urine pH Ur Specific [place] Urine Protein Urine Glucose (UA) Urine Ketones Ur Blood (Man) Urine Nitrate Urine Bilirubin Urine Urobilinogen Leukocyte Esterase Rfl Urine RBC Urine WBC Ur Squamous Epith Cells Urine Bacteria Urine Mucus Ur Random Sodium Ur Random Urea Urine Creatinine Quality VTE Prophylaxis VTE prophylaxis: pharmacologic ordered
[2021-04-11 13:15] LABS: Amylase 73 U/L (30-110); Cholesterol 79 mg/dL (0-200); Lactate Dehydrogenase 326 U/L (313-618); Triglycerides 126 mg/dL (<150)
[2021-04-11] MEDS: SODIUM CHLORIDE 1 GM TABLET PO (17:02)
[2021-04-12] VITALS (12 sets, daily range): BP systolic 94–124; BP diastolic 58–78; PULSE 80–88; RESP 16–36; TEMP 36.2–37.5; O2SAT 94–97
[2021-04-12 01:38] LABS: Vancomycin Trough 10.4 ug/mL (10.0-20.0)
[2021-04-12 05:09] LABS: Basophils Percent Auto 0.2 % (0.2-1.2); Eosinophils Percent Auto 0.4 % (0-4.4); Hemoglobin 10.4 g/dL (14.0-18.0); Immature Granulocyte Absolute 0.05 K/mm3 (0.00-0.031); Immature Granulocyte Percent A 0.6 % (0-0.5); Lymphocytes Absolute Auto 0.65 K/mm3 (0.9-3.2); Lymphocytes Percent Auto 7.7 % (18.3-44.2); Mean Corpuscular HGB Conc 33.5 g/dl (32-36); Mean Corpuscular Hemoglobin 33.5 pg (26-34); Mean Platelet Volume 9.1 fl (7.4-10.4); Monocytes Absolute Auto 0.8 K/mm3 (0.1-0.6); Monocytes Percent Auto 9.2 % (2.6-8.5); Neutrophils Absolute Auto 6.9 K/mm3 (1.3-6.7); Neutrophils Percent Auto 81.9 % (45.5-73.1); Platelet Count Result 231 k/mm3 (150-375); Red Cell Distribution Width 12.2 % (11.5-14.5); White Blood Count 8.4 K/mm3 (4.5-10.0)
[2021-04-12 05:27] LABS: Alanine Aminotransferase 39 U/L (4-50); Albumin Level 2.6 g/dL (3.5-5.1); Alkaline Phosphatase 86 U/L (38-126); Anion Gap 7 mmol/L (8-16); Aspartate Amino Transferase 50 U/L (17-59); Bilirubin,Total 0.6 mg/dL (0.2-1.3); Blood Urea Nitrogen 27 mg/dL (9-20); Calcium 7.9 mg/dL (8.4-10.2); Carbon Dioxide 25 mmol/L (22-30); Chloride 95 mmol/L (98-107); Estimated CRCL calculation 55 ml/min; Estimated Glomerular Filt Rate 52; Glucose 164 mg/dL (65-110); Magnesium 2.2 mg/dL (1.6-2.3); Potassium 4.1 mmol/L (3.4-5.0); Sodium 127 mmol/L (137-145)
[2021-04-12 09:54] LABS: INR 1.2; Prothrombin Time 15.1 Seconds (11.1-14.7)
[2021-04-12 09:55] LABS: Partial Thromboplastin Time 31.5 SECONDS (22.3-36.8)
[2021-04-12] MEDS: FUROSEMIDE INJ 40 MG/4 ML VIAL IV PUSH (09:57)
[2021-04-12] MEDS: THERAPEUTIC MULTIVITAMINS/MINERALS TAB (*BKC) 1 TABLET PO (09:57)
[2021-04-12] MEDS: guaiFENesin 12 HR 600 MG TABCR PO ×2 (09:57→20:50)
[2021-04-12] MEDS: FOLIC ACID 1 MG TABLET PO (09:57)
[2021-04-12] MEDS: PANTOPRAZOLE 40 MG TABLET PO ×2 (09:57→20:50)
[2021-04-12] MEDS: amLODIPine BESYLATE 5 MG TABLET 10 MG PO (09:57)
[2021-04-12] MEDS: SODIUM CHLORIDE 1 GM TABLET PO ×2 (09:57→16:17)
[2021-04-12] MEDS: THIAMINE HCL 100 MG TABLET PO (09:57)
[2021-04-12] MEDS: cloNIDine HCL 0.2 MG TABLET PO ×2 (09:57→20:50)
[2021-04-12] MEDS: METOPROLOL TARTRATE 50 MG TAB PO ×2 (09:57→20:49)
--- NOTE | 2021-04-12 10:30 | P.PNIM_ITS ---
Progress Note: A&P Assessment and Plan (1) Sepsis: Code(s): A41.9 - Sepsis, unspecified organism Status: Acute Assessment and Plan: * Present on admission, supported by tachycardia, tachypnea, and leukocytosis w ith bandemia * Infectious source: right lower lobe PNA * Lactic acid 1.4 * Blood pressures have been stable * Blood cultures NGTD * Sputum cultures No growth to date * Cefepime and vancomycin * WBC 16 upon admission, trending down and is 8.4 * trend WBC (2) Right lower lobe pneumonia: Code(s): J18.9 - Pneumonia, unspecified organism Status: Acute Assessment and Plan: * Chest xray shows right lower lobe PNA * Reports SOB * Supplemental oxygen, wean to maintain saturation >90% * Continue cefepime and vancomycin * Sputum culture MGTD * blood culture NGTD * strep pneumonia and Legionella antigens pending * albuterol on board (3) Chronic kidney disease: Code(s): N18.9 - Chronic kidney disease, unspecified Status: Acute Assessment and Plan: * Baseline creatinine is 1.10-1.40 * current creatinine is 1.40 * urine labs * Could be a component of hypervolemia * Trend labs * Could also be worsening from the vancomycin * Avoid nephrotoxic medications (4) Macrocytic anemia: Code(s): D53.9 - Nutritional anemia, unspecified Status: Acute Assessment and Plan: * MCV 100.0, H/H 10.4/31.0 * Anemia labs B12 465, folate 15.0, iron 20, TIBC 189, % saturation 11, Ferritin 399 * Seems to be anemia of chronic disease, but this could be masked by the ETOH usage * Start iron PO 324mg BID * Trend labs * Labs in the am (5) Hypertension: Code(s): I10 - Essential (primary) hypertension Status: Acute Assessment and Plan: * Current BP 121/62 * Continue home amlodipine 10mg PO daily, clonidine 0.2mg PO Q12hr, metoprolol 50mg PO Q12hr * Trend BP * Adjust therapy as indicated (6) Alcohol abuse: Code(s): F10.10 - Alcohol abuse, uncomplicated Status: Acute Assessment and Plan: * No reported signs/symptoms of alcohol withdrawal * [facility] protocol * Continue thiamine and folic acid * Librium and lorazepam on board (7) Tobacco abuse: Code(s): Z72.0 - Tobacco use Status: Acute Assessment and Plan: * discussed smoking cessation for 8 minutes * declines the need for nicotine patch at this time (8) Hyponatremia: Code(s): E87.1 - Hypo-osmolality and hyponatremia Status: Acute Assessment and Plan: * Na 127 on admission * Currently 125 with IV hydration * Wonder if this is hyponatremia, hypervolemia * Give 1 dose of IV lasix 40mg * Could be related to underlying pneumonia * IV fluid NS at 100ml/hr * Trend labs * CT Abd/Pel- found right sided pleural effusion loculated (9) Hypomagnesemia: Code(s): E83.42 - Hypomagnesemia Status: Acute Assessment and Plan: * Mg 2.2 today * Seems to be resolved at this time * Trend labs * Labs in the am (10) Acute respiratory failure: Code(s): J96.00 - Acute respiratory failure, unspecified whether with hypoxia or hypercapnia Status: Acute Assessment and Plan: * Found to be hypoxic with a saturation of 87 * ABG: pH 7.505, CO2 28.1, O2 53.6, saturation 97.1, respiratory alkalosis * Supplemental oxygen, looks like it has been turned up to 5LNC * Will check a D.Dimer and venous dopplers as he has swelling bilaterally, and increase in oxygen demand. He is also tachycardiac could be a PE * D.Dimer elevated at 3.53 * Venous Doppler negative for a DVT * Chest xray Progression of pleural effusions and basilar edema. * Lasix 40mg IV BID * Wean as indicated (11) Acute exacerbation of congestive heart failure: Code(s): I50.9 - Heart failure, unspecified Status: Acute Assessment and Plan: * Would say he is in an acute exacerbation of diastolic heart failure * BNP 664 * Chest xray shows Progression of pleural effusions and basilar edema. * lungs are crackly and cough sounds wet * increase in oxygen demand abruptly * Bilateral feet 2-3+ pitting edema * RUQ ultrasound did not show ascities * Echo EF of 65-70% with grade 1 diastolic dysfunction * Lasix 40mg IV daily * andi hose * Weight is back to baseline at 90.5kg * Continue daily weights * trend output with Strict I&Os (12) Pleural effusion: Code(s): J90 - Pleural effusion, not elsewhere classified Status: Acute Assessment and Plan: * CTA showed moderate size loculated pleural effusion * Paracentesis has been ordered * Could be an empyema * Will get testing Time Spent With Patient Time with patient: Greater than 35 minutes Subjective Date/time seen: 04/12/21 10:30 Interval history: Date/Time: 04/08/21 16:00 Narrative: This is a pleasant 60-year-old male smoker with history of hypertension, polycystic kidney disease, and alcohol abuse who presented to the emergency department today via EMS from urgent care for evaluation of right- sided chest pain. 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 He has done well up until the past 3 days when he developed right-sided pleuritic chest pain, shortness of breath and cough productive of yellow phlegm. Today he went to urgent care and on arrival he was diaphoretic, tachycardic, tachypneic, and hypoxic with an SpO2 of 87% on room air. He was directed to the emergency department where chest x-ray showed right lower lobe pneumonia and he is being admitted in this setting. At the time my evaluation he is feeling better simply with the oxygen and IV fluid rehydration. He has had some sweats but denies chills and fever. He also denies exertional chest pain, orthopnea, PND, nausea, vomiting, and diarrhea. He denies dysphagia and has no concerns for aspiration. There is no mention in his medical records of concerns for aspiration with his recent hospitalization. No sick contacts or known COVID exposure. Date/Time 04/09/21 0915 Patient was sitting chair when I went to visit. Patient stated that his cough is better and does build up until he feels in back of this throat he starts to cough and he is good for while. He is coughing Up a brown thick lumpy sputum. he does state that he feels little bit better than yesterday. He also stated that he has noticed that his feet have been swelling a little bit more than normal. He stated that he has been having some wheezes but nothing that is not normal for him. He said he is eating okay and he is urinating okay and fully empties when he urinates. He also stated that he has not been eating or drinking a lot lately which all started when he got sick. Patient also complained of some right upper quadrant abdominal pain. Very tender to palpation abdomen is firm and round. He denies any chest pain, shortness of breath, nausea, vomiting, diarrhea, constipation, weakness, fatigue. Date/Time 04/10/21 0845 Patient stated that he is feeling okay today. He did say that he is having more shortness of breath however he did say he feels a little better as he can lay down even though he is at a very high Fowlers. patient did sound very crackly throughout. Left foot is also swollen more than the right foot. Patient did state that his foot looks better on the right. He denies any abdominal pain today and nursing reported a bowel movement today as well. Patient does seem a little anxious at times. He stated that he is eating fine. Patient also stated before today he would have chest pain when he laid down. Patient stated that he would experience right-sided chest pain that would ra diate to the middle of his back. He denies having any issues with that today or yesterday but did say he had some the day before. Patient also denies any nausea, vomiting, diarrhea, constipation, numbness fatigue. Patient did say that he is weak. Date/Time 04/11/21 1115 patient was sleeping when I walked in to examine him. Patient stated that he was doing okay however he is still pretty short of breath. He denies any chest pain, abdominal pain, nausea, vomiting, diarrhea, constipation. I did explain patient and updated him with the plan of care at this time. D-dimer was elevated CTA did show a moderate size right loculated pleural effusion. Paracentesis has been ordered. Date/Time 04/12/21 10:30 Patient is feeling ok. He is still short of breath. He also looks to be labored and tachypneic at this time. He is also coughing a lot, and stated that he is coughing up buckets of sputum yellow in color. He also stated that this would come on when he feels a tickle in his throat. He continues to have shortness of breath, and he is starting to feel more weak. He denies any chest pain, nausea, vomiting, diarrhea, indigestion. Review of Systems Review of Systems: All systems reviewed & are unremarkable except as noted in HPI and below Exam Const: General: cooperative, no acute distress, well developed, alert, awake and ill appearing Nutritional Appearance: well nourished Orientation/consciousness: oriented to person, oriented to place, oriented to time and patient oriented x3 Limitations: no limitations HENMT: Head: normal to inspection Ears: hearing grossly normal bilaterally General nose exam: Normal external nose present Mouth: Yes Normal oral and palatal mucosa present, Yes lip normal and Yes tongue normal Teeth and gingiva: abnormal tooth and associated gingiva and poor dentition Eyes: General: appearance normal, both eyes and all related structures Pupils: Equal, round and reactive pupils present Neck: Neck: normal visual inspection, full ROM, trachea midline and supple Chest: Chest palpation & inspection: normal inspection of the chest Resp: Effort & Inspection: normal respiratory effort and able to speak in complete sentences Auscultation: clear to auscultation bilaterally Cardio: Jugular venous distension: no JVD Rate: regular rate Rhythm: regular rhythm Heart sounds: S1 normal heart sound present and S2 normal heart sound present Peripheral pulses: Peripheral pulses 2+ throughout GI: Inspection: normal to inspection, distended and Pannus present Auscultation: Hyperactive bowel sounds present Rectal Exam: deferred Skin: General skin exam: normal color and no rashes or lesions noted Lesions: no lesions Rashes: no rashes Trauma: no lacerations or abrasions Wounds: no wounds Hair: normal Nails: normal Neuro: General: oriented to person, oriented to place, oriented to time, patient oriented x3, moves all extremities and Normal light touch and pain sensation Cranial nerves: Yes CN's II-XII intact bilaterally, Yes Equal, round and reactive pupils present, Yes Bilaterally intact EOM present, Yes facial symmetry and Yes Midline tongue present Speech: normal speech Gait exam (Neuro): Normal gait present Extrem: General: normal to inspection, full ROM and capillary refill normal Right upper extremity: normal to inspection, full ROM and normal capillary refill Left upper extremity: normal to inspection, full ROM and normal capillary refill Right lower extremity: normal to inspection, full ROM, normal capillary refill, ankle Details: swelling and foot Details: edema Left lower extremity: normal to inspection, full ROM, normal capillary refill, ankle Details: swelling and foot Details: edema Psych: Appearance: grossly normal Objective Data Vital Signs Vital Signs: Vital Signs - 24 hr 04/11/21 08:30 04/11/21 08:34 04/11/21 08:35 Temperature Pulse Rate 96 97 96 Respiratory Rate 18 18 Blood Pressure 136/60 136/60 Pulse Oximetry 96 96 04/11/21 13:56 04/11/21 20:05 04/11/21 20:06 Temperature 36.2 C L 36.5 C Pulse Rate 101 H 98 98 Respiratory Rate 24 H 18 Blood Pressure 124/70 134/70 Pulse Oximetry 100 95 04/12/21 04:17 Temperature 36.2 C L Pulse Rate 82 Respiratory Rate 20 Blood Pressure 121/62 Pulse Oximetry 96 Intake/Output Intake/Output: Intake & Output 04/09/21 04/10/21 04/11/21 04/12/21 23:59 23:59 23:59 23:59 Intake Total 3310 2030 1800 550 Output Total 500 500 500 500 Balance 2810 1530 1300 50 Meds/Results Medications: Active Medications Generic Name Dose Route Start Last Admin Trade Name Freq PRN Reason Stop Dose Admin Acetaminophen 650 mg 04/08/21 23:37 Acetaminophen 325 Mg Tablet PO Q6H PRN Mild Pain (1-3) or Fever Albuterol 2 puff 04/08/21 23:29 04/10/21 21:29 Albuterol Sulfate (*Sp) Aerosol 1 Puff INHALATION 2 puff QIDRT PRN Administration Shortness Of Breath Amlodipine Besylate 10 mg 04/09/21 09:00 04/11/21 08:35 Amlodipine Besylate 5 Mg Tablet PO 10 mg DAILY IAIN Administration Chlordiazepoxide HCl 25 mg 04/08/21 23:32 Chlordiazepoxide (*Crx) 25 Mg Capsule PO Q8H PRN Anxiety or withdrawal symptoms Clonidine HCl 0.2 mg 04/09/21 09:00 04/11/21 20:06 Clonidine Hcl 0.2 Mg Tablet PO 0.2 mg Q12HR IAIN Administration Enoxaparin Sodium 40 mg 04/10/21 09:40 04/11/21 08:35 Enoxaparin 40 Mg/0.4 Ml Syringe SUB-Q 40 mg DAILY IAIN Administration Folic Acid 1 mg 04/09/21 09:00 04/11/21 08:35 Folic Acid 1 Mg Tablet PO 1 mg DAILY IAIN Administration Furosemide 40 mg 04/12/21 09:00 Furosemide Inj 40 Mg/4 Ml Vial IV PUSH DAILY [facility] Guaifenesin 600 mg 04/08/21 23:45 04/11/21 20:06 Guaifenesin 12 Hr 600 Mg Tabcr PO 600 mg Q12HR IAIN Administration Cefepime HCl 2 gm in 50 mls @ 100 mls/hr 04/08/21 23:45 04/11/21 20:32 Maxipime 2 Gm/D5w 50 Ml IVPB Infused Q12HR IAIN Infusion Vancomycin HCl 1,500 mg in 500 mls @ 333.333 mls/hr 04/09/21 01:00 04/12/21 04:06 Vancomycin 1,500 Mg/D5w 500 Ml IVPB Infused Q24H IAIN Infusion Lorazepam 1 mg 04/08/21 22:49 Lorazepam Inj (*Crx) 2 Mg/Ml Vial IV PUSH Q3H PRN ALCOHOL WITHDRAWAL SYMPTOMS Metoprolol Tartrate 50 mg 04/09/21 09:00 04/11/21 20:06 Metoprolol Tartrate 50 Mg Tab PO 50 mg Q12HR IAIN Administration Multivitamins/Calcium 1 tablet 04/09/21 09:00 04/11/21 08:35 Therapeutic Multivitamins/Minerals Tab (*Bkc) PO 1 tablet QAM IAIN Administration Pantoprazole Sodium 40 mg 04/09/21 10:25 04/11/21 20:07 Pantoprazole 40 Mg Tablet PO 40 mg Q12HR IAIN Administration Perflutren Lipid Microsphere 0 ml 04/09/21 10:16 Perflutren Lipid Microspheres 1.5 Ml Vial Diluted To 10 Ml Total Volume IV PUSH ONCE PRN adequate visualization Protocol Sodium Chloride 1 gm 04/11/21 17:00 04/11/21 17:02 Sodium Chloride 1 Gm Tablet PO 1 gm BID IAIN Administration Thiamine HCl 100 mg 04/09/21 09:00 04/11/21 08:35 Thiamine Hcl 100 Mg Tablet PO 100 mg QAM IAIN Administration Radiology Results: ITS Impressions Abdomen Ultrasound 04/09/21 14:43 IMPRESSION: 1. Nonspecific mild intra and extra hepatic biliary ductal dilation with normal decompressed gallbladder and without evident cholelithiasis. Correlate with liver function tests. 2. Numerous hepatic and right renal cysts consistent with autosomal dominant polycystic kidney disease. Chest X-Ray 04/10/21 10:58 IMPRESSION: 1. Progression of pleural effusions and basilar edema. Venous Doppler Study 04/10/21 12:35 IMPRESSION: 1. No lower extremity deep venous thrombosis bilaterally. Chest/Abdomen/Pelvis CTA 04/11/21 09:33 IMPRESSION: 1. Interval development of right lower lobe pneumonia with multiple areas of right lower lobe cavitation. 2. No pulmonary embolus identified. 3. Polycystic kidney disease with some soft tissue density masses of the kidneys. Consider follow-up CT or MRI without and with contrast. 4. Moderate-sized right pleural effusion with loculation anteriorly. Labs Labs: Laboratory Results - last 24 hr 04/11/21 04/12/21 04/12/21 05:12 00:13 05:00 WBC 8.4 RBC 3.10 L Hgb 10.4 L Hct 31.0 L MCV 100.0 MCH 33.5 MCHC 33.5 RDW 12.2 Plt Count 231 MPV 9.1 Immature Gran % (Auto) 0.6 H Neut % (Auto) 81.9 H Lymph % (Auto) 7.7 L Schleicher % (Auto) 9.2 H Eos % (Auto) 0.4 Baso % (Auto) 0.2 Lymph # (Auto) 0.65 L Schleicher # (Auto) 0.8 H Eos # (Auto) 0.0 Baso # (Auto) 0.0 Abs Immat Gran (auto) 0.05 H Absolute Neuts (auto) 6.9 H Absolute Nucleated RBC 0.0 Nucleated RBC % 0.0 Sodium Potassium Chloride Carbon Dioxide Anion Gap BUN Creatinine Estim Creat Clear Calc Estimated GFR Glucose Calcium Magnesium Total Bilirubin AST ALT Alkaline Phosphatase Lactate Dehydrogenase 326 Total Protein 6.0 L Albumin Triglycerides 126 Cholesterol 79 Amylase 73 Vancomycin Trough 10.4 04/12/21 05:00 WBC RBC Hgb Hct MCV MCH MCHC RDW Plt Count MPV Immature Gran % (Auto) Neut % (Auto) Lymph % (Auto) Schleicher % (Auto) Eos % (Auto) Baso % (Auto) Lymph # (Auto) Schleicher # (Auto) Eos # (Auto) Baso # (Auto) Abs Immat Gran (auto) Absolute Neuts (auto) Absolute Nucleated RBC Nucleated RBC % Sodium 127 L Potassium 4.1 Chloride 95 L Carbon Dioxide 25 Anion Gap 7 L BUN 27 H Creatinine 1.40 H Estim Creat Clear Calc 55 Estimated GFR 52 L Glucose 164 H Calcium 7.9 L Magnesium 2.2 Total Bilirubin 0.6 AST 50 ALT 39 Alkaline Phosphatase 86 Lactate Dehydrogenase Total Protein 6.0 L Albumin 2.6 L Triglycerides Cholesterol Amylase Vancomycin Trough Quality VTE Prophylaxis VTE prophylaxis: pharmacologic ordered
[2021-04-12 13:46] LABS: Appearance Pleural Fluid Turbid (Clear); Color Pleural Fluid Yellow (Colorless); Pleural fluid source Pleural fluid
[2021-04-12 23:17] LABS: Legionella pneumophila Ag Ur Not Detected (Not Detected)
[2021-04-12 23:42] LABS: Pneumococcal Antigen Urine Not Detected (Not Detected)
[2021-04-13] VITALS (8 sets, daily range): BP systolic 103–115; BP diastolic 57–61; PULSE 76–91; RESP 16–24; TEMP 36.7–37.1; O2SAT 92–95
[2021-04-13] MEDS: ACETAMINOPHEN 325 MG TABLET 650 MG PO (02:45)
[2021-04-13 04:58] LABS: Osmolality, Urine 557 mOsm/kg (50-1200)
[2021-04-13 05:54] LABS: Basophils Percent Auto 0.3 % (0.2-1.2); Eosinophils Percent Auto 0.5 % (0-4.4); Hematocrit 30.3 % (42.0-52.0); Hemoglobin 10.1 g/dL (14.0-18.0); Immature Granulocyte Absolute 0.08 K/mm3 (0.00-0.031); Immature Granulocyte Percent A 1.1 % (0-0.5); Lymphocytes Absolute Auto 0.63 K/mm3 (0.9-3.2); Lymphocytes Percent Auto 8.6 % (18.3-44.2); Mean Corpuscular HGB Conc 33.3 g/dl (32-36); Mean Corpuscular Hemoglobin 33.8 pg (26-34); Mean Corpuscular Volume 101.3 fl (80-100); Mean Platelet Volume 9.1 fl (7.4-10.4); Monocytes Absolute Auto 0.6 K/mm3 (0.1-0.6); Monocytes Percent Auto 8.1 % (2.6-8.5); Neutrophils Percent Auto 81.4 % (45.5-73.1); Platelet Count Result 269 k/mm3 (150-375); Red Blood Count 2.99 M/mm3 (4.6-6.20); Red Cell Distribution Width 12.2 % (11.5-14.5); White Blood Count 7.3 K/mm3 (4.5-10.0)
[2021-04-13 06:07] LABS: Alanine Aminotransferase 43 U/L (4-50); Albumin Level 2.4 g/dL (3.5-5.1); Alkaline Phosphatase 79 U/L (38-126); Anion Gap 7 mmol/L (8-16); Aspartate Amino Transferase 56 U/L (17-59); Bilirubin,Total 0.6 mg/dL (0.2-1.3); Blood Urea Nitrogen 25 mg/dL (9-20); Calcium 7.8 mg/dL (8.4-10.2); Carbon Dioxide 24 mmol/L (22-30); Chloride 96 mmol/L (98-107); Estimated CRCL calculation 59 ml/min; Estimated Glomerular Filt Rate 56; Glucose 160 mg/dL (65-110); Magnesium 1.8 mg/dL (1.6-2.3); Potassium 3.5 mmol/L (3.4-5.0); Sodium 127 mmol/L (137-145)
[2021-04-13] MEDS: THIAMINE HCL 100 MG TABLET PO (09:02)
[2021-04-13] MEDS: FOLIC ACID 1 MG TABLET PO (09:02)
[2021-04-13] MEDS: guaiFENesin 12 HR 600 MG TABCR PO (09:02)
[2021-04-13] MEDS: PANTOPRAZOLE 40 MG TABLET PO (09:02)
[2021-04-13] MEDS: SODIUM CHLORIDE 1 GM TABLET PO (09:02)
[2021-04-13] MEDS: METOPROLOL TARTRATE 50 MG TAB PO (09:02)
[2021-04-13] MEDS: amLODIPine BESYLATE 5 MG TABLET 10 MG PO (09:02)
[2021-04-13] MEDS: THERAPEUTIC MULTIVITAMINS/MINERALS TAB (*BKC) 1 TABLET PO (09:02)
[2021-04-13] MEDS: ENOXAPARIN 40 MG/0.4 ML SYRINGE SUB-Q (09:02)
[2021-04-13] MEDS: cloNIDine HCL 0.2 MG TABLET PO (09:02)
[2021-04-13] MEDS: FUROSEMIDE INJ 40 MG/4 ML VIAL IV PUSH (09:02)
--- NOTE | 2021-04-13 09:15 | P.TS_ITS ---
Transfer Discharge Sum: Prov Provider Date of admission: 04/08/21 16:31 Primary care physician: [employer] PH[employer]ICIAN Admitting clinician: Smith Bernardo MD Attending physician on admission: Mauri Bernardo Consults: 04/13/21 Consult to Physician Routine Comment: Consulting Provider: Otto Tidwell Reason for consultation: empyema Has provider been notified: No Attending physician on discharge: Mary Ellen Elias Discharging clinician: Randall Trejo Anticipated date of transfer: 04/13/21 Receiving physician/facility: Dr. Matos/ [facility] DS: Admitting Diagnosis Discharge Date 04/13/21 Admitting Diagnosis Pneumonia, sepsis, empyema DS: Discharge Diagnosis Discharge Diagnosis (1) Sepsis: Code(s): A41.9 - Sepsis, unspecified organism Status: Acute Assessment and Plan: * Present on admission, supported by tachycardia, tachypnea, and leukocytosis with bandemia * Infectious source: right lower lobe PNA * Lactic acid 1.4 * Blood pressures have been stable * Blood cultures NGTD * Sputum cultures No growth to date * Cefepime and vancomycin * WBC 16 upon admission, trending down and is 7.3 * trend WBC (2) Right lower lobe pneumonia: Code(s): J18.9 - Pneumonia, unspecified organism Status: Acute Assessment and Plan: * Chest xray shows right lower lobe PNA * Reports SOB * Supplemental oxygen, wean to maintain saturation >90% * Continue cefepime and vancomycin * Sputum culture MGTD * blood culture NGTD * strep pneumonia and Legionella antigens pending * albuterol on board (3) Chronic kidney disease: Code(s): N18.9 - Chronic kidney disease, unspecified Status: Acute Assessment and Plan: * Baseline creatinine is 1.10-1.40 * current creatinine is 1.30 * urine labs * Could be a component of hypervolemia * Trend labs * Could also be worsening from the vancomycin * Avoid nephrotoxic medications (4) Macrocytic anemia: Code(s): D53.9 - Nutritional anemia, unspecified Status: Acute Assessment and Plan: * MCV 100.0, H/H 10.4/31.0 * Anemia labs B12 465, folate 15.0, iron 20, TIBC 189, % saturation 11, Ferritin 399 * Seems to be anemia of chronic disease, but this could be masked by the ETOH usage * Start iron PO 324mg BID * Trend labs * Labs in the am (5) Hypertension: Code(s): I10 - Essential (primary) hypertension Status: Acute Assessment and Plan: * Current BP 121/62 * Continue home amlodipine 10mg PO daily, clonidine 0.2mg PO Q12hr, metoprolol 50mg PO Q12hr * Trend BP * Adjust therapy as indicated (6) Alcohol abuse: Code(s): F10.10 - Alcohol abuse, uncomplicated Status: Acute Assessment and Plan: * No reported signs/symptoms of alcohol withdrawal * [facility] protocol * Continue thiamine and folic acid * Librium and lorazepam on board (7) Tobacco abuse: Code(s): Z72.0 - Tobacco use Status: Acute Assessment and Plan: * discussed smoking cessation for 8 minutes * declines the need for nicotine patch at this time (8) Hyponatremia: Code(s): E87.1 - Hypo-osmolality and hyponatremia Status: Acute Assessment and Plan: * Na 127 on admission * Currently 125 with IV hydration * Wonder if this is hyponatremia, hypervolemia * Give 1 dose of IV lasix 40mg * Could be related to underlying pneumonia * IV fluid NS at 100ml/hr * Trend labs * CT Abd/Pel- found right sided pleural effusion loculated (9) Hypomagnesemia: Code(s): E83.42 - Hypomagnesemia Status: Acute Assessment and Plan: * Mg 2.2 today * Seems to be resolved at this time * Trend labs * Labs in the am (10) Acute respiratory failure: Code(s): J96.00 - Acute respiratory failure, unspecified whether with hypoxia or hypercapnia Status: Acute Assessment and Plan: * Found to be hypoxic with a saturation of 87 * ABG: pH 7.505, CO2 28.1, O2 53.6, saturation 97.1, respiratory alkalosis * Supplemental oxygen, looks like it has been turned up to 5LNC * Will check a D.Dimer and venous dopplers as he has swelling bilaterally, and increase in oxygen demand. He is also tachycardiac could be a PE * D.Dimer elevated at 3.53 * Venous Doppler negative for a DVT * Chest xray Progression of pleural effusions and basilar edema. * Lasix 40mg IV BID * Wean as indicated (11) Acute exacerbation of congestive heart failure: Code(s): I50.9 - Heart failure, unspecified Status: Acute Assessment and Plan: * Would say he is in an acute exacerbation of diastolic heart failure * BNP 664 * Chest xray shows Progression of pleural effusions and basilar edema. * lungs are crackly and cough sounds wet * increase in oxygen demand abruptly * Bilateral feet 2-3+ pitting edema * RUQ ultrasound did not show ascities * Echo EF of 65-70% with grade 1 diastolic dysfunction * Lasix 40mg IV daily * andi hose * Weight is back to baseline at 90.5kg * Continue daily weights * trend output with Strict I&Os (12) Pleural effusion: Code(s): J90 - Pleural effusion, not elsewhere classified Status: Acute Assessment and Plan: * CTA showed moderate size loculated pleural effusion * Paracentesis has been ordered * Could be an empyema * Will get testing Transfer Discharge Sum: Med Medications Active and Home Medications: Home Medications amlodipine [Norvasc] 10 mg PO DAILY 30 Days #60 tablet 03/29/21 [Rx Confirmed 04/08/21] clonidine HCl 0.2 mg PO Q12HR #60 tablet 03/29/21 [Rx Confirmed 04/08/21] metoprolol tartrate 50 mg PO Q12HR #60 tablet 03/29/21 [Rx Confirmed 04/08/21] Transfer Discharge Sum: Hosp Hospital Course Hospital course: Anton Navarro is a 60 year old male the past medical history of hypertension, alcohol abuse, tobacco abuse, who presented to the ED for increased shortness of breath over the last week or 2. Patient met sepsis criteria with tachycardia CAD, tachypnea, leukocytosis. Chest x-ray and CT s howed right lobe pneumonia patient was hydrated with IV fluids and was started on cefepime and vancomycin. Blood cultures were drawn and showed no growth to date. Blood pressures were stable however white blood cell count was elevated and has been trending down since admission. Supplemental oxygen was provided and was maintained at 2 L nasal cannula. Sputum cultures showed no growth today. BUN creatinine were elevated upon admission at 1.5 and is currently 1.3. Anemia labs were completed and showed the patient needed iron which he was started on supplementation. It was noticed that patient had an increased oxygen which triggered CT of the chest abdomen and pelvis. D-dimer was also elevated and CTA showed no PE however did show a right-sided loculated pleural effusion. Thoracentesis was performed and drained 50 mL of turbid, opaque, yellow fluid. PH of the fluid was unable to be detected. [facility] was contacted for transfer for CTS consult. Patient was accepted to [facility] and has been transferred for further management of complicated pleural effusion / empyema. Today upon assessment of the patient patient stated he does not feel any better or feel like he is getting any better. He still feels weak and a cough. Time Spent with Patient Time attestation: Total time spent providing and/or coordinating transfer services: 58 minutes Exam Const: General: cooperative, no acute distress, well developed, alert, awake and ill appearing Nutritional Appearance: well nourished Orientation/consciousness: oriented to person, oriented to place, oriented to time and patient oriented x3 Limitations: no limitations HENMT: Head: normal to inspection Ears: hearing grossly normal bilaterally General nose exam: Normal external nose present Mouth: Yes Normal oral and palatal mucosa present, Yes lip normal and Yes tongue normal Teeth and gingiva: abnormal tooth and associated gingiva and poor dentition Eyes: General: appearance normal, both eyes and all related structures Pupils: Equal, round and reactive pupils present Neck: Neck: normal visual inspection, full ROM, trachea midline and supple Chest: Chest palpation & inspection: normal inspection of the chest Resp: Effort & Inspection: normal respiratory effort and able to speak in complete sentences Auscultation: clear to auscultation bilaterally Cardio: Jugular venous distension: no JVD Rate: regular rate Rhythm: regular rhythm Heart sounds: S1 normal heart sound present and S2 normal heart sound present Peripheral pulses: Peripheral pulses 2+ throughout GI: Inspection: normal to inspection, distended and Pannus present Auscultation: Hyperactive bowel sounds present Rectal Exam: deferred Skin: General skin exam: normal color and no rashes or lesions noted Lesions: no lesions Rashes: no rashes Trauma: no lacerations or abrasions Wounds: no wounds Hair: normal Nails: normal Neuro: General: oriented to person, oriented to place, oriented to time, patient oriented x3, moves all extremities and Normal light touch and pain sensation Cranial nerves: Yes CN's II-XII intact bilaterally, Yes Equal, round and reactive pupils present, Yes Bilaterally intact EOM present, Yes fa cial symmetry and Yes Midline tongue present Speech: normal speech Gait exam (Neuro): Normal gait present Extrem: General: normal to inspection, full ROM and capillary refill normal Right upper extremity: normal to inspection, full ROM and normal capillary refill Left upper extremity: normal to inspection, full ROM and normal capillary refill Right lower extremity: normal to inspection, full ROM, normal capillary refill, ankle Details: swelling and foot Details: edema Left lower extremity: normal to inspection, full ROM, normal capillary refill, ankle Details: swelling and foot Details: edema Psych: Appearance: grossly normal DS: Data Data Completed and Pending Pending studies at discharge: Pending at discharge 04/11/21 12:55 Cytology [PTH] Routine Labs on day of discharge: Labs from last 24 hours 04/13/21 04/13/21 04/10/21 05:41 05:41 07:47 WBC 7.3 RBC 2.99 L Hgb 10.1 L Hct 30.3 L MCV 101.3 H MCH 33.8 MCHC 33.3 RDW 12.2 Plt Count 269 MPV 9.1 Immature Gran % (Auto) 1.1 H Neut % (Auto) 81.4 H Lymph % (Auto) 8.6 L [place] % (Auto) 8.1 Eos % (Auto) 0.5 Baso % (Auto) 0.3 Lymph # (Auto) 0.63 L [place] # (Auto) 0.6 Eos # (Auto) 0.0 Baso # (Auto) 0.0 Abs Immat Gran (auto) 0.08 H Absolute Neuts (auto) 6.0 Absolute Nucleated RBC 0.0 Nucleated RBC % 0.0 Sodium 127 L Potassium 3.5 Chloride 96 L Carbon Dioxide 24 Anion Gap 7 L BUN 25 H Creatinine 1.30 Estim Creat Clear Calc 59 Estimated GFR 56 L Glucose 160 H Calcium 7.8 L Magnesium 1.8 Total Bilirubin 0.6 AST 56 ALT 43 Alkaline Phosphatase 79 Total Protein 6.0 L Albumin 2.4 L Urine Osmolality 557 Ur L.pneumophila Ag Urine Pneumococcal Ag 04/09/21 04:10 WBC RBC Hgb Hct MCV MCH MCHC RDW Plt Count MPV Immature Gran % (Auto) Neut % (Auto) Lymph % (Auto) [place] % (Auto) Eos % (Auto) Baso % (Auto) Lymph # (Auto) [place] # (Auto) Eos # (Auto) Baso # (Auto) Abs Immat Gran (auto) Absolute Neuts (auto) Absolute Nucleated RBC Nucleated RBC % Sodium Potassium Chloride Carbon Dioxide Anion Gap BUN Creatinine Estim Creat Clear Calc Estimated GFR Glucose Calcium Magnesium Total Bilirubin AST ALT Alkaline Phosphatase Total Protein Albumin Urine Osmolality Ur L.pneumophila Ag Not detected Urine Pneumococcal Ag Not detected Preliminary micro results at discharge 04/12/21 11:12 Anaerobic Culture - Preliminary Pleural Fluid 04/08/21 16:26 Blood Culture - Preliminary Blood 04/08/21 16:27 Blood Culture - Preliminary Blood
--- NOTE | 2021-04-13 12:24 | P.CONPL_ITS ---
Assessment and Plan Assessment and plan (1) Pneumonia: Qualifiers: Laterality: right Lung location: lower lobe of lung Pneumonia type: due to unspecified organism Qualified Code(s): J18.9 - Pneumonia, unspecified organism Code(s): J18.9 - Pneumonia, unspecified organism Status: Acute Assessment and Plan: 60-year-old man who was recently treated with intubation and mechanical ventilation in the intensive care unit, has right lower lobe necrotic pneumonia and loculated pleural effusion. In view of recent history of hospitalization and mechanical ventilation, this is a health care associated pneumonia. The patient has responded to combination of cefepime and vancomycin with significant symptom improvement and decrease in his inflammatory indices. Chest CT shows loculated pleural effusion, with two fluid pockets, one posteriorly which is the largest and also another one anteriorly. Pleural fluid analysis is pending. Given the patient's history and the chest CT findings, this may represent empyema or at least complicated parapneumonic effusion which needs to be drained. If this is empyema he will probably need decortication via VATS. the hospitalist has informed me that the patient is being transferred to a tertiary center for thoracic surgery evaluation.. (2) Pleural effusion: Code(s): J90 - Pleural effusion, not elsewhere classified Status: Acute History of Present Illness History of Present Illness Consult date: 04/13/21 Chief complaint: Pneumonia,Hyponatremia,Dehydration Narrative: This 60-year-old man was admitted into the hospital approximately 5 days ago because of right chest pain and cough. The patient was in his usual state of health until approximately 3 weeks ago when he was hospitalized because of angioneurotic edema with possible upper airway obstruction. The patient was intubated and treated with mechanical ventilation in the intensive care unit. He remained in the hospital for approximately 5 days. Approximately 9 days following discharge from the hospital, he presented with right chest pain and cough. Initially he was seen at an urgent care center where he was found to be diaphoretic tachycardic tachypneic and hypoxemic at 87% on room air. On evaluation in the ER, he was found to have right lower lobe pneumonia as well as right loculated pleural effusion. The patient has been treated with cefepime and vancomycin and underwent right thoracentesis. Pleural fluid analysis results are not available yet. Currently the patient is doing better. He stated that his chest pain is a lot less as is his cough and sputum production. He has no fever chills or night sweats. His past medical history is significant for hypertension polycystic kidney disease and alcohol abuse. Many years ago he was found to have latent tuberculosis and received treatment with INH for approximately 6 months. Review of Systems Review of Systems: Patient reports no significant weight changes. He has history of acid reflux disease. He has no history of orthopnea. He has had some constipation over the last 3 days. He has no urinary complaints. He has no joint pain. He has history of previous lower extremity edema. 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 Family History Family History (Updated 04/08/21 @ 22:59 by Leanna Rodriguez PA-C) Other Hypertension Social History Social History (Updated 04/08/21 @ 23:00 by Leanna Rodriguez PA-C) Social History: The patient lives in [place] With family members. He smokes about 10 cigarettes a day and drinks a pint of whiskey most days. Denies drug use. He designates his father, Donell Navarro, as his surrogate decision maker. Code status: Full code. Meds Home Medications and Allergies Home Medications Medication Instructions Recorded Confirmed Type amlodipine [Norvasc] 10 mg PO DAILY 30 Days #60 tablet 03/29/21 04/08/21 Rx clonidine HCl 0.2 mg PO Q12HR #60 tablet 03/29/21 04/08/21 Rx metoprolol tartrate 50 mg PO Q12HR #60 tablet 03/29/21 04/08/21 Rx Allergies Allergy/AdvReac Type Severity Reaction Status Date / Time lisinopril Allergy Severe Swelling Verified 04/08/21 18:47 of Lip/Tongue/Throat Vital Signs Vital Signs - 24 hr 04/12/21 12:30 04/12/21 14:22 04/12/21 20:00 Temperature 37.1 C 37.1 C Pulse Rate 80 81 Respiratory Rate 36 H 24 H Blood Pressure 94/58 L 113/58 L 115/61 Pulse Oximetry 94 97 96 04/12/21 20:47 04/12/21 20:49 04/12/21 21:05 Temperature 37.5 C Pulse Rate 87 87 Respiratory Rate 16 Blood Pressure 115/61 Pulse Oximetry 96 96 04/13/21 00:00 04/13/21 04:00 04/13/21 06:13 Temperature 36.7 C Pulse Rate 91 Respiratory Rate 16 Blood Pressure 115/61 103/59 L 103/59 L Pulse Oximetry 92 04/13/21 08:00 04/13/21 09:01 04/13/21 09:02 Temperature 36.8 C 37.1 C Pulse Rate 86 85 76 Respiratory Rate 16 24 H Blood Pressure 109/57 L 113/58 L Pulse Oximetry 95 94 04/13/21 09:10 04/13/21 12:08 Temperature Pulse Rate 76 Respiratory Rate 18 Blood Pressure 113/58 L Pulse Oximetry 94 92 Exam Narrative: GENERAL APPEARANCE: Well developed, well nourished, alert and cooperative, and appears to be in no acute distress While breathing room air SKIN: Inspection of the skin reveals no rashes, ulcerations or petechiae. HEENT: Sclerae anicteric and conjunctivae pink and moist. Extraocular movements were intact and pupils were equal, round. The oral mucosa, hard and soft palate, tongue and posterior pharynx were normal. NECK: Supple. There was no thyroid enlargement, and no tenderness, or masses were felt. CHEST: Normal AP diameter and normal contour without any kyphoscoliosis. LUNGS: decreased breath sounds crackles at right base posteriorly, no wheezing CARDIAC: There was a regular rate and rhythm without any murmurs, gallops, rubs. ABDOMEN: Soft and nontender with normal bowel sounds. There was no organomegaly. LYMPH NODES: No lymphadenopathy was appreciated in the neck. EXTREMITIES: No cyanosis, clubbing or edema. old stasis dermatitis changes in lower extremities. NEUROLOGIC: Alert and oriented x 3. Normal affect. Results Laboratory Findings CBC and BMP: 04/13/21 05:41 04/13/21 05:41 ABG, PT/INR, D-dimer: ABG ABG pH 7.505 (7.350-7.450) H* 04/08/21 15:56 ABG pCO2 28.1 mmHg (35.0-45.0) L 04/08/21 15:56 ABG pO2 53.6 mmHg (80.0-100.0) L 04/08/21 15:56 ABG O2 Saturation 91.1 % (95.0-100.0) L 04/08/21 15:56 PT/INR, D-dimer PT 15.1 Seconds (11.1-14.7) H 04/12/21 08:38 INR 1.2 04/12/21 08:38 D-Dimer 3.53 ug/mL (<0.48) H 04/10/21 10:18 Abnormal lab findings: Abnormal Labs 04/08/21 04/08/21 04/08/21 14:40 14:40 15:56 WBC 16.0 H RBC 3.52 L Hgb 12.0 L D Hct 36.1 L MCV 102.6 H MCH 34.1 H Immature Gran % (Auto) Neut % (Auto) Lymph % (Auto) [place] % (Auto) Baso % (Auto) Lymph # (Auto) [place] # (Auto) Abs Immat Gran (auto) Absolute Neuts (auto) Neutrophils % (Manual) 81 H Band Neutrophils % 9 H Lymphocytes % (Manual) 6.0 L Abs Neuts (Manual) 14.40 H Abs Lymphs (Manual) 0.96 L PT D-Dimer ABG pH 7.505 H* ABG pCO2 28.1 L ABG pO2 53.6 L ABG HCO3 21.7 L ABG O2 Saturation 91.1 L ABG O2 Content 15.8 L Oxyhemoglobin 87.4 L* Sodium 127 L Chloride Carbon Dioxide Anion Gap 6 L BUN 27 H D Creatinine 1.40 H Estimated GFR 52 L Glucose 193 H Calcium 8.0 L Magnesium Iron TIBC % Saturation Ferritin AST C-Reactive Protein NT-Pro-B Natriuret Pep Total Protein 6.0 L Albumin 3.1 L Urine Protein 04/08/21 04/09/21 04/09/21 16:26 01:27 01:27 WBC 10.4 H RBC 3.08 L Hgb 10.6 L Hct 32.4 L MCV 105.2 H MCH 34.4 H Immature Gran % (Auto) 0.9 H Neut % (Auto) 87.6 H Lymph % (Auto) 5.2 L [place] % (Auto) Baso % (Auto) Lymph # (Auto) 0.54 L [place] # (Auto) Abs Immat Gran (auto) 0.09 H Absolute Neuts (auto) 9.2 H Neutrophils % (Manual) Band Neutrophils % Lymphocytes % (Manual) Abs Neuts (Manual) Abs Lymphs (Manual) PT D-Dimer ABG pH ABG pCO2 ABG pO2 ABG HCO3 ABG O2 Saturation ABG O2 Content Oxyhemoglobin Sodium Chloride Carbon Dioxide Anion Gap BUN Creatinine Estimated GFR Glucose Calcium Magnesium Iron 20 L TIBC 189 L % Saturation 11 L Ferritin 399.00 H AST C-Reactive Protein 24.8 H NT-Pro-B Natriuret Pep Total Protein Albumin Urine Protein 04/09/21 04/09/21 04/10/21 01:27 10:39 05:35 WBC 10.2 H RBC 3.31 L Hgb 11.2 L Hct 33.9 L MCV 102.4 H MCH Immature Gran % (Auto) 0.9 H Neut % (Auto) 88.9 H Lymph % (Auto) 4.6 L [place] % (Auto) Baso % (Auto) 0.1 L Lymph # (Auto) 0.47 L [place] # (Auto) Abs Immat Gran (auto) 0.09 H Absolute Neuts (auto) 9.1 H Neutrophils % (Manual) Band Neutrophils % Lymphocytes % (Manual) Abs Neuts (Manual) Abs Lymphs (Manual) PT D-Dimer ABG pH ABG pCO2 ABG pO2 ABG HCO3 ABG O2 Saturation ABG O2 Content Oxyhemoglobin Sodium 130 L Chloride Carbon Dioxide Anion Gap 7 L BUN 28 H Creatinine 1.40 H Estimated GFR 52 L Glucose 132 H Calcium 7.9 L Magnesium 1.5 L Iron TIBC % Saturation Ferritin AST C-Reactive Protein NT-Pro-B Natriuret Pep Total Protein 6.0 L Albumin 2.8 L Urine Protein 04/10/21 04/10/21 04/10/21 05:35 07:43 10:18 WBC RBC Hgb Hct MCV MCH Immature Gran % (Auto) Neut % (Auto) Lymph % (Auto) [place] % (Auto) Baso % (Auto) Lymph # (Auto) [place] # (Auto) Abs Immat Gran (auto) Absolute Neuts (auto) Neutrophils % (Manual) Band Neutrophils % Lymphocytes % (Manual) Abs Neuts (Manual) Abs Lymphs (Manual) PT D-Dimer 3.53 H ABG pH ABG pCO2 ABG pO2 ABG HCO3 ABG O2 Saturation ABG O2 Content Oxyhemoglobin Sodium 128 L Chloride Carbon Dioxide 19 L Anion Gap BUN 28 H Creatinine 1.50 H Estimated GFR 48 L Glucose 142 H Calcium 8.2 L Magnesium Iron TIBC % Saturation Ferritin AST C-Reactive Protein NT-Pro-B Natriuret Pep Total Protein 6.0 L Albumin 2.9 L Urine Protein 2+ H 04/10/21 04/11/21 04/11/21 10:18 05:12 05:13 WBC RBC Hgb Hct MCV MCH Immature Gran % (Auto) Neut % (Auto) Lymph % (Auto) [place] % (Auto) Baso % (Auto) Lymph # (Auto) [place] # (Auto) Abs Immat Gran (auto) Absolute Neuts (auto) Neutrophils % (Manual) Band Neutrophils % Lymphocytes % (Manual) Abs Neuts (Manual) Abs Lymphs (Manual) PT D-Dimer ABG pH ABG pCO2 ABG pO2 ABG HCO3 ABG O2 Saturation ABG O2 Content Oxyhemoglobin Sodium 125 L Chloride Carbon Dioxide Anion Gap 4 L BUN 25 H Creatinine 1.50 H Estimated GFR 48 L Glucose 169 H Calcium 8.0 L Magnesium Iron TIBC % Saturation Ferritin AST 60 H C-Reactive Protein NT-Pro-B Natriuret Pep 664 H Total Protein 6.0 L 6.0 L Albumin 2.7 L Urine Protein 04/11/21 04/12/21 04/12/21 05:13 05:00 05:00 WBC 10.1 H RBC 3.40 L 3.10 L Hgb 11.6 L 10.4 L Hct 34.2 L 31.0 L MCV 100.6 H MCH 34.1 H Immature Gran % (Auto) 1.4 H 0.6 H Neut % (Auto) 84.7 H 81.9 H Lymph % (Auto) 6.7 L 7.7 L [place] % (Auto) 9.2 H Baso % (Auto) Lymph # (Auto) 0.67 L 0.65 L [place] # (Auto) 0.7 H 0.8 H Abs Immat Gran (auto) 0.14 H 0.05 H Absolute Neuts (auto) 8.5 H 6.9 H Neutrophils % (Manual) Band Neutrophils % Lymphocytes % (Manual) Abs Neuts (Manual) Abs Lymphs (Manual) PT D-Dimer ABG pH ABG pCO2 ABG pO2 ABG HCO3 ABG O2 Saturation ABG O2 Content Oxyhemoglobin Sodium 127 L Chloride 95 L Carbon Dioxide Anion Gap 7 L BUN 27 H Creatinine 1.40 H Estimated GFR 52 L Glucose 164 H Calcium 7.9 L Magnesium Iron TIBC % Saturation Ferritin AST C-Reactive Protein NT-Pro-B Natriuret Pep Total Protein 6.0 L Albumin 2.6 L Urine Protein 04/12/21 04/13/21 04/13/21 08:38 05:41 05:41 WBC RBC 2.99 L Hgb 10.1 L Hct 30.3 L MCV 101.3 H MCH Immature Gran % (Auto) 1.1 H Neut % (Auto) 81.4 H Lymph % (Auto) 8.6 L [place] % (Auto) Baso % (Auto) Lymph # (Auto) 0.63 L [place] # (Auto) Abs Immat Gran (auto) 0.08 H Absolute Neuts (auto) Neutrophils % (Manual) Band Neutrophils % Lymphocytes % (Manual) Abs Neuts (Manual) Abs Lymphs (Manual) PT 15.1 H D-Dimer ABG pH ABG pCO2 ABG pO2 ABG HCO3 ABG O2 Saturation ABG O2 Content Oxyhemoglobin Sodium 127 L Chloride 96 L Carbon Dioxide Anion Gap 7 L BUN 25 H Creatinine Estimated GFR 56 L Glucose 160 H Calcium 7.8 L Magnesium Iron TIBC % Saturation Ferritin AST C-Reactive Protein NT-Pro-B Natriuret Pep Total Protein 6.0 L Albumin 2.4 L Urine Protein AMG Consult Billing Inpatient Consult [id number] Initial Admit Mod
[2021-04-15 21:18] LABS: Glucose Pleural Fluid <10 mg/dL; LDH Pleural Fluid 10294 U/L; Total Protein Pleural Fluid 3.6 g/dL
[2021-04-18 16:16] LABS: Amylase, Pleural Fluid 22 U/L
== END 2021-04-13 12:20 | disposition short-term general hospital (02) | DRG 193 ==
LOC: ANHED 15:51 → ANH2MED 04-09 05:13
PROVIDERS: Physician Assistant; Admitting Provider Internal Medicine; Emergency Provider Emergency Medicine; Visit Provider Nurse Practitioner
DX: J18.9 Pneumonia, unspecified organism (principal); J96.01 Acute respiratory failure with hypoxia; I50.31 Acute diastolic (congestive) heart failure; E87.1 Hypo-osmolality and hyponatremia; J90 Pleural effusion, not elsewhere classified; I13.0 Hypertensive heart and chronic kidney disease with heart failure and stage 1 through stage 4 chronic kidney disease, or unspecified chronic kidney disease; Q61.3 Polycystic kidney, unspecified; Z20.822 Contact with and (suspected) exposure to COVID-19; N18.9 Chronic kidney disease, unspecified; D63.8 Anemia in other chronic diseases classified elsewhere; D53.9 Nutritional anemia, unspecified; F10.10 Alcohol abuse, uncomplicated; F17.210 Nicotine dependence, cigarettes, uncomplicated; E83.42 Hypomagnesemia; I25.10 Atherosclerotic heart disease of native coronary artery without angina pectoris; R10.9 Unspecified abdominal pain
CPT/HCPCS: 32555; 36415; 36600; 71045; 71046; 71275; 74177; 76705; 80048; 80053; 80074; 80076; 80202; 81001; 82042; 82150; 82465; 82570; 82607; 82728; 82746; 82805; 82945; 83540; 83550; 83605; 83615; 83735; 83880; 83935; 83986; 84155; 84157; 84300; 84311; 84443; 84478; 84484; 84540; 85025; 85380; 85610; 85730; 86140; 87015; 87040; 87070; 87075; 87076; 87102; 87116; 87205; 87206; 87449; 87899; 88104; 88108; 88184; 88305; 89051; 93005; 93306; 93970; 94640; 94667; 99285; A9270; C9803; J0131; J0692; J1650; J1940; J1956; J3370; J3411; J3475; J7030; Q9967; U0003; U0005

== ENCOUNTER 2022-01-08 10:51 | Emergency (ER) | payer OTHER, SELFPAY ==
[2022-01-08 11:02] VITALS: BP 171/99; PULSE 88; RESP 16; TEMP 36.5; O2SAT 99
--- NOTE | 2022-01-08 11:21 | ED.GENADULT ---
HPI - General Adult General Chief complaint: Unspecified Stated complaint: gout Time Seen by Provider: 01/08/22 11:10 Source: patient Mode of arrival: ambulatory Limitations: no limitations History of Present Illness HPI narrative: Mr. Navarro is a 61-year-old male patient presenting to clinic today with complaints of possible gout flare to the right great toe and left wrist. He does have a history of gout and is out of his colchicine. He contacted his pharmacy for refill but they said that they would get back with him within 6-7 business days so he is here for this issue today. Related Data Allergies Allergy/AdvReac Type Severity Reaction Status Date / Time lisinopril Allergy Severe Swelling Verified 01/08/22 10:57 of Lip/Tongue/Throat Review of Systems Review of Systems: Pertinent positives per HPI. Patient denies any fever, chills, rash, headache, visual changes, dizziness, cough, runny nose, sore throat, shortness of breath, chest pain, palpitations, nausea, vomiting, diarrhea, constipation, abdominal pain, or any urinary issues. 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 Family History Family History Other Hypertension Social History Social History Social History: The patient lives in [place] With family members. He smokes about 10 cigarettes a day and drinks a pint of whiskey most days. Denies drug use. He designates his father, Donell Navarro, as his surrogate decision maker. Code status: Full code. Comments At the time of my signature, I reviewed and agree with the nursing past medical, surgical, social, and family history. There is no relevant family history pertinent to the patient complaint. Exam Narrative: General: Well-developed, well nourished, in no apparent distress Head: Normocephalic, atraumatic. Cardio: Regular rate and rhythm, s1 and s2 normal, no murmur appreciated. Resp: Clear to auscultation bilaterally, no rhonchi, rales, wheezing or rubs. Musculoskeletal: No deformity, tender to palpation with moderate swelling and redness to the base of the right great toe, and redness and swelling to the ulnar aspect of the left wrist with mild redness and swellinggrossly normal range of motion, muscle strength strong and equal, peripheral pulse strong, no cyanosis, normal gait and station Course Course Emergency Course: Portions of this record may have been created with voice recognition software. Level of Care: Express Care Visit Vital Signs Vital signs: Vital Signs Temperature 36.5 C 01/08/22 11:02 Pulse Rate 88 01/08/22 11:02 Respiratory Rate 16 01/08/22 11:02 Blood Pressure 171/99 H 01/08/22 11:02 Pulse Oximetry 99 01/08/22 11:02 Oxygen Delivery Room Air 01/08/22 11:02 Temperature 36.5 C 01/08/22 11:02 Pulse Rate 88 01/08/22 11:02 Respiratory Rate 16 01/08/22 11:02 Blood Pressure 171/99 H 01/08/22 11:02 Pulse Oximetry 99 01/08/22 11:02 Oxygen Delivery Room Air 01/08/22 11:02 Vital signs reviewed Medical Decision Making MDM Narrative Medical decision making narrative: At the time of visit patient is resting comfortably on exam table. I suspect patient has gouty arthritis. I will place the patient on prescription for colchicine and prednisone. Supportive measures were discussed with the patient he voiced understanding discharge instructions and agrees to treatment plan Differential Diagnosis Differential Diagnosis: gouty arthritis, osteoarthritis, psoriatic arthritis Vital Signs
== END 2022-01-08 11:33 | disposition home or self-care (01) ==
PROVIDERS: Emergency Provider Nurse Practitioner Family
DX: M10.032 Idiopathic gout, left wrist (principal); M10.071 Idiopathic gout, right ankle and foot; I12.9 Hypertensive chronic kidney disease with stage 1 through stage 4 chronic kidney disease, or unspecified chronic kidney disease; N18.9 Chronic kidney disease, unspecified
CPT/HCPCS: 99213; G0463

== ENCOUNTER 2022-03-12 18:33 | Emergency (ER) | payer OTHER, SELFPAY ==
--- NOTE | ~2022-03-12 | XR_ITS ---
XR wrist LT min 3V DATE: 03/12/2022 19:07 INDICATION: Generalized left wrist pain following lifting car batteries TECHNIQUE: 4 views COMPARISON: None FINDINGS: There is soft tissue swelling. No fracture or dislocation, periosteal reaction or bone dest ruction is detected. IMPRESSION: Soft tissue swelling. No fracture or dislocation is evident Reviewed, dictated and finalized at location A. [employer]
[2022-03-12 18:50] VITALS: BP 170/92; PULSE 80; RESP 16; TEMP 32.1; O2SAT 99
--- NOTE | 2022-03-12 18:59 | ED.UPPEXIN ---
HPI - Extremity Injury (Upper) General Chief Complaint: Extremity Injury, Upper Stated Complaint: Left Wrist Pain Time Seen by Provider: 03/12/22 18:59 Source: patient Mode of arrival: ambulatory Limitations: no limitations History of Present Illness HPI narrative: 61-year-old male presents with complaint of pain to left wrist for approximately 5-6 days. Reports history of similar pain to bilateral feet caused by gout. States that he took colchicine as prescribed for when he has gout it did not help his wrist. Reports he also has a history of arthritis to his left Left wrist. Wears a wrist splint at all times other than when he is at work. States they will not let him wear it there. 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 Thinks that maybe his arthritis is aggravated since colchicine did not help him. All systems reviewed and negative except as noted above. Related Data Home Medications Medication Instructions Recorded Confirmed amlodipine 5 mg tablet mg 03/12/22 clonidine HCl 0.2 mg tablet mg 03/12/22 metoprolol tartrate 50 mg tablet mg 03/12/22 Allergies Allergy/AdvReac Type Severity Reaction Status Date / Time lisinopril Allergy Severe Swelling Verified 03/12/22 19:05 of Lip/Tongue/Throat Review of Systems Review of Systems: CONSTITUTIONAL: Denies fever, chills, or sweats. EYES: Denies visual changes, redness, or discharge. ENT: Denies rhinorrhea, congestion, sore throat, or otalgia. CARDIOVASCULAR: Denies chest pain, palpitations, or edema. RESPIRATORY: Denies cough or dyspnea. GASTROINTESTINAL: Denies abdominal pain, nausea, vomiting, or diarrhea. GENITOURINARY: Denies dysuria or hematuria. SKIN: Denies rash or itching. MUSCULOSKELETAL: Denies back pain, joint pain, or myalgia. Reports right wrist pain. NEUROLOGIC: Denies headache, numbness, or weakness. PSYCHIATRIC: Denies anxiety or depression. All other systems reviewed are negative, except as documented in HPI. 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 Family History Family History Other Hypertension Social History Social History Social History: The patient lives in [place] With family members. He smokes about 10 cigarettes a day and drinks a pint of whiskey most days. Denies drug use. He designates his father, Donell Navarro, as his surrogate decision maker. Code status: Full code. Comments At time of signature, agree with nursing past medical, surgical, social and family history. There is no relevant family history pertinent to the presenting complaint. Exam Narrative: GENERAL: This is a well-nourished, well-developed patient, in no apparent distress. HEAD: normocephalic, atraumatic. EYES: PERRL. Sclera clear/white. Vision is grossly intact. EARS: External ears normal NOSE: External nose normal NECK: Neck supple, non-tender without lymphadenopathy, masses or thyromegaly. CARDIOVASCULAR: Regular rate and rhythm without murmurs, gallops, or rubs. RESPIRATORY: Clear to auscultation. Breath sounds equal bilaterally. No wheezes, rales, or rhonchi. SKIN: warm, Dry, intact with no suspicious lesions or rash, good texture and turgor. NEURO: awake, alert, and oriented to person, place and time. There were no obvious focal neurologic abnormalities. EXTREMITIES: Swelling to right wrist. Tenderness to lateral aspect. Erythema to lateral and posterior aspect of left wrist, warm to touch. Course Course Level of Care: Express Care Visit Vital Signs Vital signs: Vital Sign
== END 2022-03-12 19:35 | disposition home or self-care (01) ==
PROVIDERS: Emergency Provider Nurse Practitioner Family
DX: M19.032 Primary osteoarthritis, left wrist (principal); M10.9 Gout, unspecified; I10 Essential (primary) hypertension; Q61.3 Polycystic kidney, unspecified
CPT/HCPCS: 73110; 99213; G0463